=== PATIENT | male | born 1995 | race Caucasian/White ===

== ENCOUNTER 2020-05-31 16:05 | Emergency (ER) | payer OTHER, SELFPAY ==
--- NOTE | ~2020-05-31 | XR_ITS ---
EXAMINATION: XR FOOT, RIGHT CLINICAL INFORMATION: Pain after fall COMPARISON: None TECHNIQUE: AP, lateral, and oblique views of the right foot. FINDINGS: There is a displaced fracture of the base of the fifth tarsal bone intra-articular with the metatarsal cuboid joint. No other fracture is seen. Joint spaces are otherwise normal. Soft tissues are normal. XR/XR foot RT min 3V IMPRESSION: Displaced fracture of the base of the fifth metatarsal bone intra-articular with the MTT joint.
[2020-05-31 16:07] VITALS: BP 155/72; PULSE 89; RESP 18; TEMP 36.8; O2SAT 99; BMI 35.4
--- NOTE | 2020-05-31 17:16 | ED.LOWEXIN ---
HPI - Extremity Injury (Lower) General Chief Complaint: Extremity Injury, Lower Stated Complaint: Fall/ankle pain Time Seen by Provider: 05/31/20 17:16 History of Present Illness HPI Narrative: Patient tripped and fell injuring his right foot yesterday and complains of pain walking and bearing weight, no other injury no head injury no headache no neck pain no back pain Related Data Previous Rx's Medication Instructions Recorded ibuprofen 600 mg PO Q6H PRN #20 tab 05/31/20 Allergies Allergy/AdvReac Type Severity Reaction Status Date / Time No Known Allergies Allergy Verified 05/31/20 16:10 Review of Systems Review of Systems: Positive for right foot pain negatives are no dizziness no weakness no fainting no headache no neck pain no back pain no numbness no weakness no tingling PMFSH Past Medical History Source: nursing notes reviewed Social History Social History Advance Directives: No Advance Directives Information Provided: No Physical Exam Vital Signs: Vital Signs: Last Vital Signs Temp 98.2 F 05/31/20 16:07 Pulse 89 05/31/20 16:07 Resp 18 05/31/20 16:07 BP 155/72 H 05/31/20 16:07 Pulse Ox 99 05/31/20 16:07 Body Mass Index 35.4 General appearance is no acute distress the head is normocephalic atraumatic Neck is supple and nontender Respiratory no distress Back is nontender with full range of motion Extremities the right foot the lateral aspect is ecchymotic, swollen and tender The patient can put some weight on it but very painful and walking with a limp The skin is intact, neurovascular intact Course Course Course Narrative: X-ray shows a 5th metacarpal base displaced fracture, patient is put in a walking boot crutches and will follow with Orthopedics advised minimal weight-bearing Discharge Plan Discharge Clinical Impression: Foot fracture, right Qualifiers: Encounter type: initial encounter Fracture type: closed Qualified Code(s): S92.901A - Unspecified fracture of right foot, initial encounter for closed fracture Patient Disposition: Home, Self-Care Additional Instructions: Follow with orthopedist this week for advice on whether this needs a surgery or is likely to repair itself with splinting Elevate leg Return any concerns Prescriptions: New ibuprofen 600 mg tablet 600 mg PO Q6H PRN (Reason: pain) Qty: 20 RF: 0 Referrals: Shakila Yañez MD [Physician] - 2 days (Displaced 5th metatarsal fracture) Stand Alone Forms: Work/School Release
--- NOTE | 2020-05-31 17:32 | PC.NURSE ---
POST OP SHOE APPLIED TO R FOOT. CRUCTHES GIVEN TO PT AND PT EDUCATED ON PROPER USE.
== END 2020-05-31 17:47 | disposition home or self-care (01) ==
PROVIDERS: Emergency Provider Emergency Medicine
DX: S92.351A Displaced fracture of fifth metatarsal bone, right foot, initial encounter for closed fracture (principal); W10.8XXA Fall (on) (from) other stairs and steps, initial encounter; Y93.89 Activity, other specified; Y92.9 Unspecified place or not applicable; Y99.9 Unspecified external cause status
CPT/HCPCS: 73630; 99283; 99284

== ENCOUNTER → 2020-06-03 11:07 | Outpatient (BNVA) | payer OTHER, SELFPAY | PROVIDERS: Visit Provider Physician Assistant | DX: S92.351A Displaced fracture of fifth metatarsal bone, right foot, initial encounter for closed fracture (principal) | CPT/HCPCS: 99202 ==

== ENCOUNTER 2020-06-09 07:59 | Day surgery (SDC) | payer OTHER, SELFPAY ==
[2020-06-09] VITALS (8 sets, daily range): BP systolic 107–133; BP diastolic 66–87; PULSE 57–90; RESP 16–20; TEMP 36.3–36.6; O2SAT 97–100; BMI 80.4
--- NOTE | ~2020-06-09 | FL_ITS ---
EXAMINATION: XR FLUOROSCOPY WITH IMAGES CLINICAL INFORMATION: Fracture COMPARISON: Previous x-ray 05/31/2020 TECHNIQUE: Fluoroscopy performed by Dr. Evens Toussaint. Fluoroscopy time: 0.5 minutes Images: 2 FINDINGS: There is a single screw transfixing the fracture of the base of the fifth metatarsal bone with improved alignment. FL/FL guidance in OR IMPRESSION: Fluoroscopic guidance for ORIF of right fifth metatarsal fracture.
--- NOTE | 2020-06-09 07:36 | MHC.SHP ---
Pre-Procedural Eval Section A The patient is an INPATIENT: No Changes since office visit: Yes Patient answered all questions; No Cold of Flu in the past 2 weeks, No New Medical Problems and No Changes in Medication The History & Physical has been completed within 30 days and I have reviewed it.: Yes Section B Chief Complaint: foot fx Allergies: Allergies Allergy/AdvReac Type Severity Reaction Status Date / Time No Known Allergies Allergy Verified 06/03/20 11:21 Plan I have reviewed the history and physical and performed a pertinent physical examination on my patient. No changes have occurred unless specified.
--- NOTE | 2020-06-09 09:04 | PC.NURSE ---
ANESTHESIOLOGIST PERFORMING NERVE BLOCK ON PATIENT AT BEDSIDE AT THIS TIME. ALL CONSENTS OBTAINED AND SIGNED PRIOR TO PROCEDURE. TIME OUT COMPLETED PER POLICY.
[2020-06-09] MEDS: Lactated Ringers 1,000 ML 50 ML IV (09:19)
--- NOTE | 2020-06-09 10:52 | PM.OP ---
Brief Operative Note Date of Service: 06/09/20 Pre-op diagnosis: right 5th metatarsal fracture Post-op diagnosis: same Procedure: ORIF right 5th metatarsal Implants: Asmus micro 3.0 cannulated screw Surgeon: Evens Toussaint MD Anesthesia: GETA and regional Hydraulic Dredge Operator: Evette Parker Estimated blood loss (mL): 20 Tourniquet time (min): 30 IV fluids (mL): 800 Pathology: none sent Condition: stable Disposition: PACU
[2020-06-09] MEDS: oxyCODONE HCl Immed Release 5 MG TABLET PO (11:28)
[2020-06-09] MEDS: Acetaminophen 325 MG TABLET 975 MG PO (11:28)
[2020-06-09] MEDS: HYDROmorphone HCl 0.5 MG/0.5 ML SYRINGE 0.25 MG IVPUSH (11:30)
--- NOTE | 2020-06-09 12:28 | P.OP_ITS ---
Operative Note Operative Note Date of Service: 06/09/20 Narrative: Date of Service: 06/09/20 Pre-op diagnosis: right 5th metatarsal fracture Post-op diagnosis: same Procedure: ORIF right 5th metatarsal Implants: Asmus micro 3.0 cannulated screw Surgeon: Evens Toussaint MD Anesthesia: GETA and regional Heel Seam Rubber: Evette Parker Estimated blood loss (mL): 20 Tourniquet time (min): 30 IV fluids (mL): 800 Pathology: none sent Condition: stable Disposition: PACU Patient was brought to the operating room and placed supine on the surgical table. He was prepped and draped in standard sterile fashion and a time out was called to identify proper site, proper procedure and IV antibiotics per weight were administered. I began by localizing the fracture using biplanar fluoroscopy. A longintudianl incision was made over the fracture and a full thickness flap was developed. The fracture fragment and 5th MTT articulation were identified and cleaned of soft tissue with peroneal tendon attachment preserved. A k-wire was drilled across the fracture fragment into the plantar lateral metatarsal base. Again biplanar fluoroscopy was used to confirm fracture reduction and hardware position. The wire was overdrilled and a 22 mm 3.0 screw was placed. I was happy with fracture reducution and hardware position. There was no room for more than one screw. The wound was irrigated and the skin closed. Sterile dressings were applied and a well padded splint was placed. Patient was extubated and brought to the recovery room is stable condition. There were no known complications.
== END 2020-06-09 12:20 | disposition home or self-care (01) ==
PROVIDERS: Visit Provider Orthopaedic Surgery
PROC: (CPT 28485; principal; 2020-06-09 09:30)
DX: S92.351A Displaced fracture of fifth metatarsal bone, right foot, initial encounter for closed fracture (principal); W01.0XXA Fall on same level from slipping, tripping and stumbling without subsequent striking against object, initial encounter; Y93.01 Activity, walking, marching and hiking; Y92.9 Unspecified place or not applicable; Y99.8 Other external cause status
CPT/HCPCS: 28485; C1713; J0690; J1100; J1170; J2250; J2405; J3010

== ENCOUNTER 2020-06-24 08:02 | Outpatient (REF) | payer OTHER, SELFPAY ==
--- NOTE | ~2020-06-24 | XR_ITS ---
EXAMINATION: XR FOOT, RIGHT CLINICAL INFORMATION: Displaced fracture of the fifth metatarsal COMPARISON: 05/31/2020 TECHNIQUE: AP, lateral, and oblique views of the right foot. FINDINGS: There is a radiopaque screw in place transfixing the fracture at the base of the fifth metatarsal. Fracture line remains visible. Bony fragments are in near-anatomic alignment. Joint spaces are maintained. The soft tissues are unremarkable. XR/XR foot RT min 3V IMPRESSION: Fixation hardware at the fifth metatarsal base fracture with near-anatomic alignment.
== END 2020-06-24 08:03 | disposition home or self-care (01) ==
LOC: HO.HOSX 08:02
PROVIDERS: Visit Provider Physician Assistant
DX: S92.351D Displaced fracture of fifth metatarsal bone, right foot, subsequent encounter for fracture with routine healing (principal)
CPT/HCPCS: 73630; 99212

== ENCOUNTER 2020-07-22 08:01 | Outpatient (REF) | payer OTHER, SELFPAY ==
--- NOTE | ~2020-07-22 | XR_ITS ---
EXAMINATION: XR FOOT, RIGHT CLINICAL INFORMATION: Displaced fracture 5th metatarsal. COMPARISON: 06/24/2020 and 05/31/2020 TECHNIQUE: AP, lateral, and oblique views of the right foot. FINDINGS: Metallic screw is seen transfixing fracture base of the 5th metatarsal. There appears to be some degree of interval bony union. A faintly seen fracture line present. There is anatomic alignment. No acute fracture or dislocation is evident. There is a small plantar calcaneal spur. XR/XR foot RT min 3V IMPRESSION: Healing fracture base of the 5th metatarsal with evidence of some bony union.
== END 2020-07-22 08:02 | disposition home or self-care (01) ==
LOC: HO.HOSX 08:01
PROVIDERS: Visit Provider Orthopaedic Surgery
DX: S92.353D Displaced fracture of fifth metatarsal bone, unspecified foot, subsequent encounter for fracture with routine healing (principal)
CPT/HCPCS: 73630; 99212

== ENCOUNTER 2020-09-02 08:18 | Outpatient (REF) | payer OTHER, SELFPAY | END 2020-09-02 08:19 | disposition home or self-care (01) | LOC: HO.HOSX 08:18 | PROVIDERS: Visit Provider Orthopaedic Surgery | DX: S92.351D Displaced fracture of fifth metatarsal bone, right foot, subsequent encounter for fracture with routine healing (principal); X58.XXXD Exposure to other specified factors, subsequent encounter | CPT/HCPCS: 99212 ==

== ENCOUNTER 2020-09-02 10:44 | Outpatient (REF) | payer OTHER, SELFPAY ==
--- NOTE | ~2020-09-02 | XR_ITS ---
EXAMINATION: XR FOOT, RIGHT CLINICAL INFORMATION: Fracture fifth metatarsal. COMPARISON: Several priors. Most recent of 07/22/20. TECHNIQUE: AP, lateral, and oblique views of the right foot. FINDINGS: The fracture at the base of the fifth metatarsal appears solidly united in stable anatomic alignment. A single surgical screw remains in place with no hardware complication. XR/XR foot RT min 3V IMPRESSION: Healed fracture at the base of the right fifth metatarsal in stable anatomic alignment status post surgical screw fixation.
== END 2020-09-02 10:45 | disposition home or self-care (01) ==
LOC: HO.XRAY 10:44
PROVIDERS: Visit Provider Orthopaedic Surgery
DX: S92.351D Displaced fracture of fifth metatarsal bone, right foot, subsequent encounter for fracture with routine healing (principal); X58.XXXD Exposure to other specified factors, subsequent encounter
CPT/HCPCS: 73630

== ENCOUNTER 2022-09-11 11:24 | Emergency (ER) | payer OTHER, SELFPAY ==
--- NOTE | ~2022-09-11 | XR_ITS ---
EXAMINATION: XR FOOT, LEFT CLINICAL INFORMATION: Pain with ambulation COMPARISON: None available. TECHNIQUE: AP, lateral, and oblique views of the left foot. FINDINGS: No visible acute fracture or dislocation. Alignment is anatomic. Oblique lucency in the distal cuneiform, suspected to represent sequela of overlapping densities. Joint spaces are maintained. No abnormal soft tissue calcification. XR/XR foot LT min 3V IMPRESSION: No radiographically evident discrete acute fracture or dislocation. Lucency in the distal cuneiform suspected to represent sequela of overlapping densities. Clinically correlate. Additional/follow-up imaging for reassessment as clinically warranted.
--- NOTE | 2022-09-11 12:37 | ED.LOWEXIN ---
HPI - Extremity Injury (Lower) General Chief Complaint: Extremity Injury, Lower Stated Complaint: L knee pain rad to knee Time Seen by Provider: 09/11/22 13:53 Source: patient Mode of arrival: ambulatory Limitations: no limitations History of Present Illness HPI Narrative: Patient is a 27 year old assigned male at with no reported medical history presenting to the emergency department today with left foot pain. Patient states that over the last few days he has had increasing left foot pain that starts in the mid foot and shoots into his towns and into the back of his left leg. Patient denies any dizziness, lightheadedness, abdominal pain, nausea, vomiting, fever, chills, blurry vision, double vision, loss of vision, chest pain, difficulty breathing, shortness of breath, back pain, night sweats, pain with urination, increased urinary frequency, increased urinary urgency, blood in his urine or stool, syncope or a near syncopal episode, bowel incontinence, bladder incontinence, bowel retention, bladder retention, or any other complaints at this time. Onset (ago): day(s) Severity: mild Severity scale (1-10): 3 Relieving factors: nothing Exacerbating factors: weight bearing and movement Other symptoms: none Related Data Previous Rx's Medication Instructions Recorded hydrocodone 5 mg-acetaminophen 325 1 tab PO Q4-6H PRN pain 7 days #42 06/09/ mg tablet tabs Allergies Allergy/AdvReac Type Severity Reaction Status Date / Time No Known Allergies Allergy Verified 09/11/22 12:37 Review of Systems Constitutional: Constitutional: Reports no additional constitutional complaints, Denies chills, Denies fever(s) and Denies night sweats Eyes: Eyes: Reports no additional eye complaints, Denies blurry vision, Denies change in vision, Denies diplopia, Denies eye discharge, Denies loss of vision and Denies eye pain ENT: Denies dizziness Cardiovascular: Cardiovascular: Reports no additional cardiovascular complaints, Denies chest pain, Denies lightheadedness, Denies Loss of Consciousness and Denies dyspnea Respiratory: Respiratory: Reports no additional respiratory complaints and Denies dyspnea Gastrointestinal: Gastrointestinal: Reports no additional gastrointestinal complaints, Denies abdominal pain, Denies melena, Denies hematochezia, Denies change in bowel habits and Denies change in stool character Genitourinary: Genitourinary: Reports no additional male genitourinary complaints, Denies hematuria, Denies oliguria, Denies difficulty urinating, Denies dysuria, Denies urinary frequency, Denies urinary hesitancy, Denies urinary incontinence and Denies urinary urgency Musculoskeletal: Musculoskeletal: Reports no additional musculoskeletal complaints, Denies numbness and Denies tingling Comments: left foot pain Neurologic: Denies dizziness, Denies loss of vision, Denies numbness and Denies tingling Psychiatric: Psychiatric: Reports no additional psychiatric complaints Endocrine: Endocrine: Reports no additional endocrine complaints Hematologic/Lymphatic: Hematologic/Lymphatic: Reports no additional hematologic/lymphatic complaints Allergic/Immunologic: Allergic/Immunologic: Reports no additional allergic/immunologic complaints PMFSH Past Medical History Attestation statement: The following information was validated with the patient. 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 Physical Exam Vital Signs: Vital Signs: Last Vital Signs Temp 97 F 09/11/22 12:38 Pulse 79 09/11/22 12:38 Resp 19 09/11/22 12:38 BP 154/104 H 09/11/22 12:38 Pulse Ox 98 09/11/22 12:38 O2 Del Method Room Air 09/11/22 12:38 BMI result Body Mass Index 37.6 Const: General: cooperative, no acute distress, alert and awake Nutritional Appearance: well nourished Orientation/consciousness: patient oriented x3 Limitations: no limitations HEENT: Head: Yes normal to inspection and Yes atraumatic Ears: hearing grossly normal bilaterally and external ears normal General nose exam: Normal external nose present, no nasal discharge noted and no epistaxis Face and sinus: Yes normal facial exam, No abrasion and No laceration Mouth: Normal oral and palatal mucosa present, no drooling and no muffled voice Eyes: General: appearance normal, both eyes and all related structures Periorbital: periorbital findings normal Eyelids: Yes eyelids normal Conjunctivae: conjunctivae normal Pupils: Equal, round and reactive pupils present EOM: EOMs intact bilaterally Neck: Neck: Yes normal visual inspection, Yes full ROM and Yes no lymphadenopathy Chest: Chest palpation & inspection: normal inspection of the chest Resp: Effort & Inspection: normal respiratory effort and able to speak in complete sentences GI: Inspection: Yes normal to inspection Neuro: General: patient oriented x3 and moves all extremities Cranial nerves: Yes Equal, round and reactive pupils present Cognition (Neuro): normal cognition Motor exam (neuro): 5/5 motor strength present throughout Sensory Exam: Normal double simultaneous stimulation for sensation Coordination: [id number] test normal Extrem: General: Yes normal to inspection, Yes full ROM and Yes capillary refill normal Psych: Appearance: grossly normal Mental Status: mental status grossly normal Affect: normal affect Attitude: cooperative Thought process: Normal thought process present Thought content: Normal thought content present Insight: Good insight present (Psych) Course Course Course Narrative: RME - 27 yo male presents to the ER for evaluation of nontraumatic left foot pain that radiates to the left knee that started at work 3 days ago. 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 Pain is 7/10, worse with ambulation. Plan: x-ray of the foot Medical Decision Making Medical Decision Making [facility] Narrative: Patient is a 27 year old assigned male at with no reported medical history presenting to the emergency department today with left foot pain. Patient's physical exam was unremarkable. Patient's left foot x-ray showed a lucency in the distal cuneiform suspected to represent sequela of overlapping densities. However, this is where the patient is having pain and fracture cannot be definitively ruled out. Patient's clinical presentation is plantar fasciitis vs. foot fracture. I explained my physical exam findings as well as all test results to the patient. I answered all questions asked by the patient. Patient's left foot was placed in a walking boot, without incident. Patient's PMS was intact prior to and after boot placement. I stressed the importance of the patient taking his medication as prescribed. I stressed the importance of the patient following up with his primary care provider and an orthopedic provider. I stressed the importance of the patient returning to the emergency department immediately if his symptoms were to worsen or if he were to develop any dizziness, shortness of breath, difficulty breathing, chest pain, blurry vision, loss of vision, nausea, vomiting, abdominal pain, fever, chills, back pain, or any other complaints. Patient verbalized agreement and understanding with this treatment plan and discharge. Differential Diagnosis Differential Diagnoses: The differential diagnosis associated with the presentation includes Left foot fracture Left foot sprain Left foot strain Left plantar fasciitis Independent Interpretation I performed an independent interpretation of an: Plain X-Ray Interpretation: My interpretation is in agreement with the radiologist's impression of this imaging study. EXAMINATION: XR FOOT, LEFT CLINICAL INFORMATION: Pain with ambulation? COMPARISON: None available.? TECHNIQUE: AP, lateral, and oblique views of the left foot. FINDINGS: No visible acute fracture or dislocation. Alignment is anatomic. Oblique lucency in the distal cuneiform, suspected to represent sequela of overlapping densities. Joint spaces are maintained. No abnormal soft tissue calcification. XR/XR foot LT min 3V IMPRESSION: No radiographically evident discrete acute fracture or dislocation. Lucency in the distal cuneiform suspected to represent sequela of overlapping densities. Clinically correlate. Additional/follow-up imaging for reassessment as clinically warranted. Dictated By: Tapan Fragoso MD Signed By: Electronically signed by Tapan Fragoso MD 09/11/22 [id number] Radiology Impression Discussion of test interpretation with radiology: I have reviewed the radiologist's reading. Procedures Orthopedic Splinting/Casting Injury #1: Side: left Lower Extremity Injury Location: foot Lower Extremity Immobilizer: boot orthosis Discharge Plan Discharge Clinical Impression: Plantar fasciitis, Foot fracture Patient Disposition: Home, Self-Care Instructions: Plantar Fasciitis (ED), Foot Fracture in Adults (ED), Plantar Fasciitis Exercises (ED) Additional Instructions: Follow up with your primary care provider and an orthopedic provider. Return to the emergency department immediately if your symptoms worsen or if you develop any dizziness, shortness of breath, difficulty breathing, chest pain, blurry vision, loss of vision, nausea, vomiting, abdominal pain, fever, chills, back pain, or any other complaints. Prescriptions: No Action hydrocodone-acetaminophen 5-325 mg tablet 1 tab PO Q4-6H PRN (Reason: pain) 7 Days Qty: 42 0RF Referrals: [facility] [place] Family [facility] [Provider Group] (Call to establish and follow up with a primary care provider. If you already have a primary care provider, please follow up with them.) [facility] [place] Primary Care, [facility] [Provider Group] (Call to establish and follow up with a primary care provider. If you already have a primary care provider, please follow up with them.) [facility] [place] [facility] [Provider Group] (Call to establish and follow up with a primary care provider. If you already have a primary care provider, please follow up with them.) [facility] [place] [facility] [Provider Group] (Call to establish and follow up with an orthopedic provider. ) Stand Alone Forms: Work/School Release Interventions: ED Discharge Assessment Last Done: 09/11/22 14:25 Discharge Date/Time: 09/11/22 14:25 Print Language: Albanian
[2022-09-11 12:38] VITALS: BP 154/104; PULSE 79; RESP 19; TEMP 36.1; O2SAT 98; BMI 37.6
== END 2022-09-11 14:25 | disposition home or self-care (01) ==
PROVIDERS: Emergency Provider Emergency Medicine
DX: M72.2 Plantar fascial fibromatosis (principal); S92.902A Unspecified fracture of left foot, initial encounter for closed fracture; X58.XXXA Exposure to other specified factors, initial encounter; Y93.9 Activity, unspecified; Y92.9 Unspecified place or not applicable; Y99.9 Unspecified external cause status
CPT/HCPCS: 73630; 99282; 99283

== ENCOUNTER 2022-09-27 14:37 | Outpatient (AMB) | payer OTHER, SELFPAY ==
--- NOTE | 2022-09-27 14:40 | A.OFFVIS_ITS ---
Intake Vital Signs 09/27/22 14:45 Height 5 ft 7 in Weight 240 lb BMI 37.6 Intake Visit Reasons: fc- Plantar fasciitis, left Foot fracture Intake Note: Sandoval is a 27 year old male who presents today for a fracture care appointment for his left foot fx. Patient was in the ED on 09/11/22 and he was placed in a walking boot. He states that his pain started on 09/09/22 and he is unsure what it trigger his pain. Pain starts on his heel and it radiates up behind his knee. Denies numbness and tingling. Allergies No Known Allergies Allergy (Verified 09/27/22 14:44) HPI fc- Plantar fasciitis, left Foot fracture HPI Details 27-year-old male who presents to the office today for pain in the left foot, onset 09/09/22. He states he has pain in his heel which extends along the bottom of the foot. He also develops discomfort that extends up the calf. He states the pain is worse in the moring and slowly improves throughout the day. He works on his feet a r of the day. He does try to roll a frozen water bottle along the bottom of the foot for relief. He was seen in the ED on 09/11, he was given a walking boot and referred to our office for ortho eval. 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 He also has some discomfort with flexion and extension of the great toe and with inversion motion. NVI. Results Reviewed Results Reviewed: xrays obtained in the ED on 09/11 are negative for obvious fracture. Assessment & Plan Assessment & Plan (1) Plantar fasciitis of left foot: Code(s): M72.2 - Plantar fascial fibromatosis Plan We discussed options which include physical therapy and anti-inflammatories use. We also reviewed some home exercises. He can also use a lacrosse ball to help stretch out the fascia. We presented him with a blue night splint shoe which he can use while sleeping to help with the stretching. If symptoms persist or worsens, patient will contact the office to discuss a referral to steroid injection, otherwise follow-up as needed. Orders: Orders PT Evaluation and Treatment Today M72.2 - Plantar fascial fibromatosis Patient Instructions: Scribed for Tiffanie Correa PA-C, by Humberto Miller medical imaging director, on 09/27/2022 at 2:30 PM EST. ITiffanie PA-C, have personally reviewed and agree with the information entered by the scribe. Coding Level of Care Code New Pt Level 3 (63716) Diagnoses Plantar fasciitis of left foot M72.2
[2022-09-27 14:45] VITALS: BMI 37.6
== END 2022-09-27 15:18 | disposition home or self-care (01) ==
PROVIDERS: Visit Provider Physician Assistant
DX: M72.2 Plantar fascial fibromatosis (principal)
CPT/HCPCS: 99213

== ENCOUNTER → 2022-09-27 14:37 | Outpatient (BNVA) | payer OTHER, SELFPAY | PROVIDERS: Visit Provider Physician Assistant | DX: M72.2 Plantar fascial fibromatosis (principal) | CPT/HCPCS: 99212 ==

== ENCOUNTER 2022-12-10 21:37 | Emergency (ER) | payer OTHER, SELFPAY ==
--- NOTE | ~2022-12-10 | XR_ITS ---
EXAMINATION: XR SHOULDER, LEFT CLINICAL INFORMATION: Pain. COMPARISON: None available. TECHNIQUE: AP external rotation, Grashey, scapular Y, and axillary views of the left shoulder. XR/XR shoulder LT min 2V FINDINGS/IMPRESSION: There is a mixed, predominantly sclerotic lesion involving the proximal left humeral metadiaphysis. The borders of this lesion and not very well-circumscribed, and there may be a small amount of cortical erosion. No periosteal reaction is seen. The finding is nonspecific. Differential diagnosis includes both benign and malignant etiologies, particularly given the reported history of associated pain. MRI is recommended for further evaluation. Surgical consultation should be considered as well. No acute fracture or dislocation is identified.
--- NOTE | ~2022-12-10 | XR_ITS ---
EXAMINATION: XR ELBOW, LEFT CLINICAL INFORMATION: Pain. COMPARISON: None available. TECHNIQUE: AP, lateral, and oblique views of the left elbow. FINDINGS: The bones and soft tissues appear unremarkable. No fracture or joint effusion. Alignment is anatomic. Joint spaces are maintained. XR/XR elbow LT min 3V IMPRESSION: Normal plain film examination of the left elbow.
[2022-12-10 21:46] VITALS: BP 152/85; PULSE 113; RESP 16; TEMP 36.7; O2SAT 98; BMI 37.6
--- NOTE | 2022-12-10 23:50 | ECG_ITS ---
Test Reason : PAIN Blood Pressure : / mmHG Vent. Rate : 083 BPM Atrial Rate : 083 BPM P-R Int : 200 ms QRS Dur : 088 ms QT Int : 326 ms P-R-T Axes : 014 050 -03 degrees QTc Int : 383 ms Normal sinus rhythm ST & T wave abnormality, consider inferior ischemia Abnormal ECG No previous ECGs available Referred By: Mohsen Sparks Electronically Signed By:VIVIANE CASAREZ
--- NOTE | 2022-12-10 23:50 | ED.EXTPRO ---
HPI - Extremity Problem General Chief complaint: Extremity Injury, Upper Stated complaint: Pain in left shoulder/arm Time Seen by Provider: 12/10/22 23:44 Source: patient, RN notes reviewed and old records reviewed Mode of arrival: ambulatory Limitations: no limitations History of Present Illness HPI Narrative: 27-year-old male who denies any known past medical history presents for evaluation of chest tightness, palpitations. He reports his symptoms started around 6:00 p.m., but 6-1/2 hours ago His pain radiates into his left shoulder and has some numbness in his left arm Patient states that he has not seen a primary doctor in over 5 years However he has no diagnosed medical history He does endorse smoking cigarettes daily He is also obese He reports that his pain started while he was ?sitting down at my computer. ? His pain has improved but he still has some discomfort in his chest which he rates as a 4/10 Denies any personal history of cardiac disease Related Data Home Medications Medication Instructions Recorded Confirmed No Known Home Meds 09/27/22 09/27/22 Allergies Allergy/AdvReac Type Severity Reaction Status Date / Time No Known Allergies Allergy Verified 09/27/22 14:44 Review of Systems Constitutional: Constitutional: Denies chills, Denies fever(s) and Denies headache(s) ENT: Denies headache(s) Cardiovascular: Cardiovascular: Reports chest pain, Reports rapid heart rate and Denies dyspnea Respiratory: Respiratory: Denies cough and Denies dyspnea Gastrointestinal: Gastrointestinal: Denies abdominal pain, Denies nausea and Denies vomiting Genitourinary: Genitourinary: Denies dysuria Musculoskeletal: Musculoskeletal: Reports arthralgias, Denies joint swelling and Denies limited range of motion Integumentary/Breasts: Skin/Breast: Denies rash Neurologic: Denies headache(s) [facility] Social History Social History Alcohol intake: current Alcohol intake frequency: holidays/special occasions only Patient Tobacco Use Status: Never used Tobacco Advance Directives: No Advance Directives Information Provided: No Current occupational status: employed 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 Physical Exam Vital Signs: Vital Signs: Last Vital Signs Temp 98.0 F 12/10/22 21:46 Pulse 113 H 12/10/22 21:46 Resp 16 12/10/22 21:46 BP 152/85 H 12/10/22 21:46 Pulse Ox 98 12/10/22 21:46 O2 Del Method Room Air 12/10/22 21:46 BMI result Body Mass Index 37.6 Const: General: healthy appearing, comfortable, no acute distress, alert and awake Nutritional Appearance: well nourished Orientation/consciousness: patient oriented x3 HEENT: Head: Yes normocephalic and Yes atraumatic Eyes: Eyelids: Yes eyelids normal Conjunctivae: conjunctivae normal Sclerae: sclerae normal Corneas: corneas normal Pupils: Equal, round and reactive pupils present EOM: EOMs intact bilaterally Neck: Neck: Yes full ROM Chest: Other: Left chest wall tenderness without crepitus Resp: Effort & Inspection: normal respiratory effort, able to speak in complete sentences, no audible wheezes and not labored Auscultation: clear to auscultation bilaterally Cardio: Rate: regular rate Rhythm: regular rhythm GI: Inspection: No distended Palpation (GI): Soft to palpation, not firm, nontender, no guarding and not rigid Skin: General skin exam: elasticity normal Neuro: General: patient oriented x3 Cranial nerves: Yes Equal, round and reactive pupils present and Yes Bilaterally intact EOM present Cognition (Neuro): normal cognition Course Reevaluation(s) Reevaluation #1: Troponin undetectable, given that the patient's symptoms started 6 hours prior to this being drawn, this effectively rules out ACS Time: 00:41 Medical Decision Making Medical Decision Making [facility] Narrative: 27-year-old male presents for evaluation of palpitations and chest pain. Symptoms started about 6 hours prior to my evaluation. He had a shoulder and elbow x-ray that was ordered in triage which shows a mixed predominantly sclerotic lesion involving the proximal left humeral metadiaphysis. This was discussed the patient and strictly encouraged to have follow-up to rule out malignant pathology. It is unclear if this is causing the patient's chest pain. Given that he is morbidly obese and a smoker, I ordered labs and an EKG. Patient denies shortness of breath, has no risk factors for PE, this is favored to be less likely. Differential Diagnosis Differential Diagnoses: The differential diagnosis associated with the presentation includes Anxiety Chest wall pain Palpitations Shoulder sprain GERD Lab Data [facility] Lab Attestation statement: I reviewed the patient's lab results. No leukocytosis. No anemia, normal platelet count. No electrolyte abnormalities. Normal renal function. Troponin undetectable less than 2.7 12/11/22 00:05 12/11/22 00:05 Labs: Lab Results 12/11/22 Range/Units 00:05 WBC 10.7 (4.8-10.8) X10*3/uL RBC 4.79 (4.60-5.80) X10*6/uL Hgb 14.4 (14.0-18.0) g/dl Hct 42.8 (42.0-52.0) % MCV 89.4 (80.0-98.0) fL MCH 30.1 (27.0-33.0) pg MCHC 33.6 (31.0-36.0) g/dl RDW 12.0 (11.0-16.0) % Plt Count 222 (160-400) X10*3/uL MPV 10.9 (9.4-12.4) fL Immature Gran % (Auto) 1.3 H (0.0-0.4) % Neut % (Auto) 85.3 H (45-73) % Lymph % (Auto) 9.7 L (20-40) % [place] % (Auto) 3.0 (2-11) % Eos % (Auto) 0.3 (0-4) % Baso % (Auto) 0.4 (0-2) % Lymph # (Auto) 1.0 L (1.2-4.9) X10*3/uL [place] # (Auto) 0.3 (0.1-1.2) X10*3/uL Eos # (Auto) 0.0 (0.0-0.4) X10*3/uL Baso # (Auto) 0.0 (0.0-0.2) X10*3/uL Abs Immat Gran (auto) 0.14 H (0.00-0.03) X10*3/uL Absolute Neuts (auto) 9.2 H (2.0-8.3) x10*3/uL Absolute Nucleated RBC 0.000 (0.0-0.012) X10*3/uL Nucleated RBC % (auto) 0.0 (0.0-0.2) /100WBC PT 11.8 (11.1-13.3) SEC INR 1.0 (0.9-1.1) APTT 30.5 (26.0-36.4) SEC Sodium 138 (135-145) mmol/L Potassium 4.4 (3.3-5.1) mmol/L Chloride 104 (96-108) mmol/L Carbon Dioxide 22 (22-29) mmol/L Anion Gap 16 (12-20) BUN 9 (9-16) mg/dL Creatinine 0.88 (0.5-1.4) mg/dL Estim Creat Clear Calc 148.3 Estimated GFR > 60 Random Glucose 99 (60-115) mg/dL Calcium 10.0 (8.4-10.2) mg/dL Total Bilirubin 0.4 (0.0-1.0) mg/dL AST 19 (5-37) U/L ALT 34 (0-40) U/L Alkaline Phosphatase 63 (39-117) U/L Troponin I High Sens < 2.7 (<3.5-35.0) ng/L Total Protein 8.2 H (6.5-8.0) g/dL Albumin 4.6 (3.5-5.0) g/dL Lipase 27 (8-78) U/L Independent Interpretation I performed an independent interpretation of an: EKG (Sinus rhythm with a rate of 83 beats per minute. There are T-wave inversions in the inferior leads 3 and AVF. No reciprocal changes.) and Plain X-Ray Interpretation: Proximal humeral lesion noted Radiology Impression Discussion of test interpretation with radiology: I have reviewed the radiologist's reading. Radiologist Impression: There is a mix, predominantly sclerotic lesion involving the proximal left humeral metadiaphysis Discharge Plan Discharge Clinical Impression: Chest pain, Heart palpitations, Bone lesion Patient Disposition: Home, Self-Care Instructions: Chest Pain (ED) Additional Instructions: Your x-ray showed a sclerotic lesion in your left proximal humerus. This needs to be followed up with further imaging, possibly an MRI You may call your primary doctor to schedule an appointment. With your unable to see them, you may follow-up with Orthopedics at the number provided Remainder of your workup including labs was reassuring Prescriptions: No Action No Known Home Meds Referrals: Evens Toussaint MD [Physician] - (sclerotic bone lesion left proximal humerus)
[2022-12-11 00:10] LABS: MANUAL DIFF FLAG NO
[2022-12-11 00:16] LABS: Basophils Percent Auto 0.4 % (0-2); Eosinophils Percent Auto 0.3 % (0-4); Hematocrit 42.8 % (42.0-52.0); Hemoglobin 14.4 g/dl (14.0-18.0); Imm Gran Abs Auto 0.14 X10*3/uL (0.00-0.03); Imm Gran Pct Auto 1.3 % (0.0-0.4); Lymphocytes Percent Auto 9.7 % (20-40); Mean Corpuscular HGB Conc 33.6 g/dl (31.0-36.0); Mean Corpuscular Hemoglobin 30.1 pg (27.0-33.0); Mean Corpuscular Volume 89.4 fL (80.0-98.0); Mean Platelet Volume 10.9 fL (9.4-12.4); Monocytes Absolute Auto 0.3 X10*3/uL (0.1-1.2); Neutrophils Absolute Auto 9.2 x10*3/uL (2.0-8.3); Neutrophils Percent Auto 85.3 % (45-73); Platelet Count 222 X10*3/uL (160-400); Red Blood Count 4.79 X10*6/uL (4.60-5.80); White Blood Count 10.7 X10*3/uL (4.8-10.8)
[2022-12-11 00:20] LABS: Prothrombin Time 11.8 SEC (11.1-13.3)
[2022-12-11 00:22] LABS: Partial Thromboplastin Time 30.5 SEC (26.0-36.4)
[2022-12-11 00:27] LABS: Alanine Aminotransferase 34 U/L (0-40); Albumin Level 4.6 g/dL (3.5-5.0); Alkaline Phosphatase 63 U/L (39-117); Anion Gap 16 (12-20); Aspartate Amino Transferase 19 U/L (5-37); Bilirubin Total 0.4 mg/dL (0.0-1.0); Blood Urea Nitrogen 9 mg/dL (9-16); Carbon Dioxide 22 mmol/L (22-29); Chloride 104 mmol/L (96-108); Creatinine Clr Calc Pharmacy 148.3; Estimated Glomerular Filt Rate > 60; Glucose Random 99 mg/dL (60-115); Lipase 27 U/L (8-78); Potassium 4.4 mmol/L (3.3-5.1); Sodium 138 mmol/L (135-145); Total Protein 8.2 g/dL (6.5-8.0)
[2022-12-11 00:36] LABS: Troponin-I High Sensitivity < 2.7 ng/L (<3.5-35.0)
== END 2022-12-11 01:05 | disposition home or self-care (01) ==
PROVIDERS: Physician Assistant; Emergency Provider Emergency Medicine
DX: R07.89 Other chest pain (principal); R00.2 Palpitations; M25.512 Pain in left shoulder; Z79.899 Other long term (current) drug therapy
CPT/HCPCS: 36415; 73030; 73080; 80053; 83690; 84484; 85025; 85610; 85730; 93005; 99283; 99284

== ENCOUNTER 2022-12-13 11:00 | Outpatient (RCR) | payer OTHER, SELFPAY ==
--- NOTE | 2022-10-23 15:37 | MHC.PT.EP ---
[facility] [place] [facility] [place] [facility] [place] [facility] [address] Lucy Ibrahim [address] [phone] F: [phone] F: [phone] F: [phone] F: [phone] Physical Therapy Plan of Care Date of Evaluation: Date of Surgery: Diagnosis: LEFT PLANTAR FASCITIS Assessment: RONALDO IS A PLEASANT 27 YO MALE WHO REPORTS HE BEGAN FEELING PAIN IN HIS FOOT WHEN AT WORK A FEW MONTHS AGO. PAIN BEGAN WORSENING OVER THE FOLLOWING FEW WEEKS. NOW PAIN BEGINS IN THE MORNING AND WORSENS THE MORE HE STANDS AND WALKS. HIS JOB REQUIRES NEAR CONSTANT STANDING AND WALKING. PAIN IS INDICATED IN LATERAL CALF, ACHILLES, TRANSVERSE ARCH AND DORSUM OF FOOT. DENIES ALTERED SENSATION, REPORTS TRANSIENT EDEMA IN LATERAL ASPECT OF FOOT. UPON EXAM E DEMONSTRATES DECREASED FOOT AND ANKLE ROM, DECREASED STRENGTH OF HIP AND LE, ALTERED GAIT PATTERN AND DECREASED SOFT TISSUE MOBILITY, INCREASED PAIN. FUNCTIONAL LIMITATIONS INCLUDE DECREASED ABILITY TO PERFORM STATIC STANDING AND WALKING DECREASED TOLERANCE TO STAIRS, DECREASED ABILITY TO PERFORM WORK TASKS. HE REPORTS DECREASED PARTICIPATION IN FITNESS AND RECREATIONAL ACTIVITIES. Frequency and Duration: The patient will be seen 2 X WEEK FOR 4 WEEKS Short Term Goals: INITIATE HEP AND PROMOTE SELF MANAGEMENT OF SYMPTOMS [employer] Professor Goals: TO AMBULATE AD JOHN ON LEVEL AND UNEVEN SURFACES WITH PAIN NO GREATER THAN 2/10 INDEPENDENT HEP FULL LE STRENGTH EQUAL ROBINSON TO PERFORM FULL FUNCTIONAL SQUAT Treatment Plan: Modalities to reduce pain, spasms and effusion. Manual therapy to restore motion and function. Therapeutic exercise to improve strength and flexibility. Neuromuscular re-education for posture and balance. Therapeutic activities to return to functional activities of daily living. Electronically signed by: KIRSTEN GAMBOA PT DPT Please sign and return to therapist. Thank you for your referral.
== END 2023-01-12 11:40 | disposition home or self-care (01) ==
LOC: HO.PT 11:00
PROVIDERS: Visit Provider Physician Assistant
DX: M72.2 Plantar fascial fibromatosis (principal)
CPT/HCPCS: 97110; 97112; 97140; 97161

== ENCOUNTER 2022-12-20 14:08 | Outpatient (AMB) | payer OTHER, SELFPAY ==
--- NOTE | 2022-12-20 14:18 | A.OFFVIS_ITS ---
Intake Intake Visit Reasons: New Probeft shoulder sclerotic lesion Intake Note: Sandoval a 27 year old left hand dominant male who presents today for an evaluation of left shoulder. Patient reports on 12/10/22 he was having chest and shoulder pain, presented to [facility] where xrays were taken and was referred to orthopedics. Currently having slight shoulder pain that radiates down his arm with numbness in palm. 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 No previous tx. Allergies No Known Allergies Allergy (Verified 12/20/22 14:22) HPI New Probeft shoulder sclerotic lesion HPI Details 27-year-old left hand dominant male who presents to the office today for evaluation of left shoulder. He was seen at ED on 12/10/22 for chest and shoulder pain where x-rays were performed and he was referred to our office. He has not had any treatment in the past. He states he has mild pain and tightness in his shoulder which radiates down to his arm and elbow. His pain is aggravated with lifting but gets better with stretching his shoulder. He also c/o numbness in his palm. He denies any pain at night. 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 Tenderness over the bicipital groove and along the deltoid region of the shoulder. Forward flexion to 175, external rotation to 90, internal rotation to S1. 5/5 RTC strength. Positive Muñoz and cross body abduction. NVI. Results Reviewed Results Reviewed: X-rays of the left shoulder obtained in the ED on 12/10/22 show a sclerotic lesion involving the proximal humerus. No other bony abnormalities. Assessment & Plan Assessment & Plan (1) Tendonitis of left rotator cuff: Code(s): M75.82 - Other shoulder lesions, left shoulder (2) Lesion of left shoulder: Code(s): M75.92 - Shoulder lesion, unspecified, left shoulder Plan I did recommend a course of physical therapy to work on RTC and periscapular strengthening. At this time, he would like to hold off on physical therapy as he is completing physical therapy for his plantar fasciitis. Therefore, I did give him a handout for RTC exercises. We will also order an MRI of the left humerus to further evaluate the sclerotic lesions. This will be done with and without contrast. Once this is complete, he will see me back to discuss the result and determine the need for further treatment. Orders: Orders MR humerus LT wo/w con Today M75.82 - Other shoulder lesions, left shoulder, M75.92 - Shoulder lesion, unspecified, left shoulder Patient Instructions: Scribed for Tiffanie Correa PA-C, by Humberto Miller, biomedical equipment technician, on 12/20/2022 at 2:15 PM MICHAEL. I, Tiffanie Correa PA-C, have personally reviewed and agree with the information entered by the scribe. Coding Level of Care Code Est Pt Level 3 (89595) Diagnoses Tendonitis of left rotator cuff M75.82 Lesion of left shoulder M75.92
== END 2022-12-20 15:02 | disposition home or self-care (01) ==
PROVIDERS: PCP Nurse Practitioner Family; Visit Provider Physician Assistant
DX: M75.82 Other shoulder lesions, left shoulder (principal); M75.92 Shoulder lesion, unspecified, left shoulder
CPT/HCPCS: 99214

== ENCOUNTER → 2022-12-20 14:08 | Outpatient (BNVA) | payer OTHER, SELFPAY | PROVIDERS: PCP Nurse Practitioner Family; Visit Provider Physician Assistant | DX: M75.82 Other shoulder lesions, left shoulder (principal) | CPT/HCPCS: 99212 ==

== ENCOUNTER 2022-12-27 10:35 | Emergency (ER) | payer OTHER, SELFPAY ==
[2022-12-27 10:39] VITALS: BP 139/98; PULSE 96; RESP 18; TEMP 36.6; O2SAT 98; BMI 40.0
[2022-12-27 11:35] LABS: Anion Gap 14 (12-20); Blood Urea Nitrogen 12 mg/dL (9-16); Calcium 9.8 mg/dL (8.4-10.2); Carbon Dioxide 24 mmol/L (22-29); Chloride 104 mmol/L (96-108); Creatinine Clr Calc Pharmacy 146.8; Estimated Glomerular Filt Rate > 60; Glucose Random 132 mg/dL (60-115); Potassium 3.5 mmol/L (3.3-5.1); Sodium 138 mmol/L (135-145)
--- NOTE | 2022-12-27 12:20 | ED.CHESTPAIN ---
HPI - Chest Pain General Chief Complaint: Chest Pain Stated Complaint: Chest Pain Weak Shaking Time Seen by Provider: 12/27/22 12:05 Source: patient Mode of arrival: ambulatory Limitations: no limitations History of Present Illness HPI narrative: 27 yo male with no significant medical history presents to the ER for evaluation of left upper chest pain that started at 10:30 this morning when he was trying to sleep. He works nights and when he was lying in bed he started having an aching pain in his left upper chest associated with palpitations and high heart rate. He states he then started hyperventilating and sweating. He got pale and his hands got sweaty. His dad brought into the ER for evaluation. He denies any similar episodes to this. He states his symptoms have significantly improved with time but he would still has some aching in his left upper chest. It is worse with palpation. 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 He denies any known injury. No back pain, trouble breathing, lower extremity swelling, cough. MD complaint: chest pain and chest discomfort Onset (ago): hour(s) Timing of current episode: still present Prior episodes: No Onset: during rest Pain location: left chest Pain radiation: none Severity: moderate Quality: aching Relieving factors: rest Exacerbating factors: palpation Associated symptoms: diaphoresis and palpitations Treatment prior to arrival: none Risk Factors Coronary artery disease risk factors: none Thoracic aortic dissection risk factors: none Related Data Previous Rx's Medication Instructions Recorded ibuprofen 800 mg tablet 800 mg PO Q8H PRN pain #14 tabs 12/27/22 Allergies Allergy/AdvReac Type Severity Reaction Status Date / Time No Known Allergies Allergy Verified 12/27/22 10:39 Review of Systems Review of Systems: Yes all other systems are reviewed and are negative [facility] Past Medical History Surgical History (Updated 12/20/22 @ 14:22 by KEENAN Barron) Hx of foot surgery Social History Social History Alcohol intake: current Alcohol intake frequency: holidays/special occasions only Patient Tobacco Use Status: Never used Tobacco Advance Directives: No Current occupational status: employed 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 Oriented X3. No acute distress. Head: normocephalic, atraumatic. Eyes: Pupils equal, round and reactive to light. ENT: Pharynx normal. No tonsillar swelling or exudate. Neck: Normal inspection. Neck supple. CVS: Normal heart rate and rhythm. Pulses normal. Left upper chest wall with +soft tissue tenderness of the pectoralis muscle Respiratory: No respiratory distress. Breath sounds normal. Abdomen: Soft and nontender. +BS x4 Skin: Skin warm and dry. Normal skin color. Normal skin turgor. No rashes. Extremities: No lower extremity edema. No joint swelling. No calf tenderness or skin changes Neuro/psych: Oriented X 3. No motor deficit. No sensory deficit. CN II-XII intact. Normal speech and cognition. Medical Decision Making Medical Decision Making [facility] Narrative: 27-year-old male presents to the ER for evaluation with left-sided chest pain and palpitations that started this morning. On arrival to the ER his vital signs are normal. His exam is consistent with soft tissue tenderness in the left upper chest wall. His EKG is unremarkable. His troponins were checked x2 given acute onset this morning. They were negative x2. He has no PE risk factors, will not pursue D-dimer or CTA. His pain is most likely due to muscle strain and spasm of the pectoralis muscle given tenderness on examination today. Will start anti-inflammatories. Will have him follow-up with his primary care doctor. we discussed return precautions any is stable for discharge home. Differential Diagnosis Differential Diagnoses: The differential diagnosis associated with the presentation includes Panic attack, costochondritis, muscle strain and spasm, pneumothorax, less likely ACS or PE Admission/Observation Consideration of admission/observation: Escalation of care including admission/observation considered considered obs on arrival, workup unremarkable Lab Data [facility] Lab Attestation statement: I reviewed the patient's lab results. lab workup unremarkable, troponin negative x2 12/27/22 11:06 12/27/22 11:06 Labs: Lab Results 12/27/22 12/27/22 Range/Units 11:06 14:02 WBC 8.0 (4.8-10.8) X10*3/uL RBC 4.84 (4.60-5.80) X10*6/uL Hgb 14.6 (14.0-18.0) g/dl Hct 42.7 (42.0-52.0) % MCV 88.2 (80.0-98.0) fL MCH 30.2 (27.0-33.0) pg MCHC 34.2 (31.0-36.0) g/dl RDW 12.0 (11.0-16.0) % Plt Count 199 (160-400) X10*3/uL MPV 10.8 (9.4-12.4) fL Immature Gran % (Auto) 1.0 H (0.0-0.4) % Neut % (Auto) 56.2 (45-73) % Lymph % (Auto) 27.9 (20-40) % [place] % (Auto) 8.0 (2-11) % Eos % (Auto) 6.4 H (0-4) % Baso % (Auto) 0.5 (0-2) % Lymph # (Auto) 2.2 (1.2-4.9) X10*3/uL [place] # (Auto) 0.6 (0.1-1.2) X10*3/uL Eos # (Auto) 0.5 H (0.0-0.4) X10*3/uL Baso # (Auto) 0.0 (0.0-0.2) X10*3/uL Abs Immat Gran (auto) 0.08 H (0.00-0.03) X10*3/uL Absolute Neuts (auto) 4.5 (2.0-8.3) x10*3/uL Absolute Nucleated RBC 0.000 (0.0-0.012) X10*3/uL Nucleated RBC % (auto) 0.0 (0.0-0.2) /100WBC Sodium 138 (135-145) mmol/L Potassium 3.5 D (3.3-5.1) mmol/L Chloride 104 (96-108) mmol/L Carbon Dioxide 24 (22-29) mmol/L Anion Gap 14 (12-20) BUN 12 (9-16) mg/dL Creatinine 0.92 (0.5-1.4) mg/dL Estim Creat Clear Calc 146.8 Estimated GFR > 60 Random Glucose 132 H (60-115) mg/dL Calcium 9.8 (8.4-10.2) mg/dL Troponin I High Sens < 2.7 < 2.7 (<3.5-35.0) ng/L Independent Interpretation I performed an independent interpretation of an: EKG and Plain X-Ray Interpretation: cxr clear, no PTX or infiltrate EKG normal sinus rhythm, ventricular rate 96 beats per minute, T-wave inversion in leads 3 and AVF which was present on prior. No ST segment elevations or depressions. Radiology Impression Discussion of test interpretation with radiology: I have reviewed the radiologist's reading. Radiologist Impression: EXAMINATION: XR CHEST CLINICAL INFORMATION: Chest pain COMPARISON: None available. TECHNIQUE: 2 views of the chest were obtained. FINDINGS: No significant abnormality is noted involving the heart, lungs, mediastinum, bony thorax or soft tissues. XR/XR chest 2V IMPRESSION: External Record Review External record reviewed: Outpatient record, Prior outpatient labs and Prior outpatient radiology Prescription Management I considered prescription management with: Pain Medication Critical Care Time Critical Care Time Critical Care Time: No Discharge Plan Discharge Clinical Impression: Acute chest wall pain Patient Disposition: Home, Self-Care Instructions: Noncardiac Chest Pain (ED) Additional Instructions: Your workup today was reassuring. Your heart enzyme was negative x2. Your EKG was normal. Your exam is consistent with muscle pain. Recommend taking the prescribed anti-inflammatory pain medication as needed. Rest, no strenuous activity, limit lifting until pain is better. Follow-up with your doctor. If you develop new or worsening symptoms call 911 or come back to the ER for further evaluation. Prescriptions: New ibuprofen 800 mg tablet 800 mg PO Q8H PRN (Reason: pain) Qty: 14 0RF Stand Alone Forms: Work/School Release
[2022-12-27 14:15] VITALS: BP 122/67; PULSE 68; RESP 16; TEMP 37.4; O2SAT 99
== END 2022-12-27 15:20 | disposition home or self-care (01) ==
PROVIDERS: Emergency Provider Emergency Medicine Emergency Medical Services
DX: R07.89 Other chest pain (principal); R53.1 Weakness; R00.2 Palpitations
CPT/HCPCS: 36415; 71046; 80048; 84484; 85025; 93005; 99283

== ENCOUNTER 2023-01-10 16:21 | Emergency (ER) | payer OTHER, SELFPAY ==
[2023-01-10 17:13] VITALS: BP 107/61; PULSE 118; RESP 19; TEMP 37.2; O2SAT 97; BMI 39.4
--- NOTE | 2023-01-10 17:18 | ED.GENADULT ---
HPI - General Adult General Chief complaint: General Medical Stated complaint: throat pain, headache, hot flashes Time Seen by Provider: 01/10/23 18:25 Source: patient Mode of arrival: ambulatory Limitations: no limitations History of Present Illness HPI narrative: 27 yold presents to the ED for throat pain, headache, and chills. Related Data Previous Rx's Medication Instructions Recorded ibuprofen 800 mg tablet 800 mg PO Q8H PRN pain #14 tabs 12/27/22 amoxicillin 875 mg-potassium 1 tab PO Q12H 10 days #20 tabs 01/10/23 clavulanate 125 mg tablet oseltamivir 75 mg capsule (Tamiflu) 75 mg PO BID 5 days #10 caps 01/10/23 Allergies Allergy/AdvReac Type Severity Reaction Status Date / Time No Known Allergies Allergy Verified 12/27/22 10:39 Review of Systems Review of Systems: throat pain and headache Yes all other systems are reviewed and are negative PMFSH Past Medical History Surgical History (Updated 12/20/22 @ 14:22 by KEENAN Barron) Hx of foot surgery Social History Social History Alcohol intake: current Alcohol intake frequency: holidays/special occasions only Patient Tobacco Use Status: Never used Tobacco Advance Directives: No Advance Directives Information Provided: No Current occupational status: employed 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 Physical Exam ED Vital Signs: Vital Signs - 24 hr 01/10/23 17:13 Temperature 99.0 F Pulse Rate 118 H Respiratory Rate 19 Blood Pressure 107/61 Pulse Oximetry 97 Oxygen Delivery Method Room Air BMI result Body Mass Index 39.4 Const General: cooperative, healthy appearing, comfortable, no acute distress, well developed, alert, awake and Physically active Orientation/consciousness: oriented to person, oriented to place, oriented to time and patient oriented x3 HENMT Head: Yes normal to inspection, Yes No palpable skull fracture present, Yes normocephalic and Yes atraumatic Ears: hearing grossly normal bilaterally, external ears normal, TM's normal bilaterally, TM normal on the right, TM normal on the left, EAC's normal and mastoids normal General nose exam: Normal external nose present, Normal nares present and No nasal polyps present Face and sinus: Yes normal facial exam, Yes sinuses nontender and Yes face symmetric Mouth: Normal oral and palatal mucosa present, lip normal and tongue normal Teeth and gingiva: dentition normal and gingiva normal Throat: Yes posterior oropharynx normal, Yes tonsils normal and Yes uvula midline Eyes General: appearance normal, both eyes and all related structures Neck Neck: Yes normal visual inspection, Yes full ROM, Yes no lymphadenopathy, Yes no meningeal signs, Yes trachea midline, Yes supple, No anterior neck swelling and No tender Chest Chest palpation & inspection: normal inspection of the chest and normal palpation of entire chest wall Resp Effort & Inspection: normal respiratory effort and able to speak in complete sentences Auscultation: clear to auscultation bilaterally Cardio Jugular venous distension: no JVD Heart sounds: S1 normal heart sound present and S2 normal heart sound present GI Inspection: Yes normal to inspection and No abdominal wall ecchymosis Palpation (GI): Soft to palpation, not firm, nontender and no guarding General: Yes no CVA tenderness Back/Spine/Pelvis Back: no CVA tenderness and No back tenderness Skin General skin exam: no rashes or lesions noted, elasticity normal and turgor normal Neuro General: oriented to person, oriented to place, oriented to time, patient oriented x3, gait normal, tone normal, moves all extremities, Normal light touch and pain sensation, no meningeal signs and no focal motor deficits Extrem General: Yes normal to inspection, Yes full ROM and Yes capillary refill normal Psych Appearance: grossly normal, well kempt and not disheveled Course Course Course Narrative: RME: 27 yold male presents to the ED for sore throat, headahces, and bodyaches. no chest pain or shorntess of breath. covid, influneza, and strep ordered Medical Decision Making Medical Decision Making [facility] Narrative: 27 yold male presents to the ED for sore throat, headache, and bodyahces since today. Patient states no drooling, chest pain, neck swelling, or shortness of breath. positive for strep. patient is well appearing. negative for signs of peritonsillar abscess. positive for flu Differential Diagnosis Differential Diagnoses: The differential diagnosis associated with the presentation includes (strep, covid, infelunza, RSV) Lab Data [facility] Lab Attestation statement: I reviewed the patient's lab results. Labs: Lab Results 01/10/23 Range/Units 17:21 COVID-19 (KENISHA) Negative (Negative) COVID-19 Clin Com See Note Influenza Type A (GENEVIEVE) Positive A (Negative) Influenza Type B (GENEVIEVE) Negative (Negative) Influenza A & B Note See Note S. pyogenes GrpA GENEVIEVE Positive A (Negative) External Record Review External record reviewed: Other (Prior ED visit) Prescription Management I considered prescription management with: Pain Medication and Antibiotic Discharge Plan Discharge Clinical Impression: Strep throat, Influenza A Patient Disposition: Home, Self-Care Instructions: Strep Throat (ED), Influenza (ED) Additional Instructions: Return to the ED immediately for any drooling, change in voice, neck swelling, shortness of breath, weakness, chest pain, or any other concerning symptoms. please follow up wt PCP. Prescriptions: New amoxicillin-pot clavulanate 875-125 mg tablet 1 tab PO Q12H 10 Days Qty: 20 0RF oseltamivir [Tamiflu] 75 mg capsule 75 mg PO BID 5 Days Qty: 10 0RF No Action ibuprofen 800 mg tablet 800 mg PO Q8H PRN (Reason: pain) Qty: 14 0RF Stand Alone Forms: Work/School Release Interventions: ED Discharge Assessment Last Done: 01/10/23 18:35 Discharge Date/Time: 01/10/23 18:36 Print Language: Palauan
[2023-01-10 17:53] LABS: IDNOW Serial# 08D9AD1C; Strep A Nucleic Acid Positive (Negative)
[2023-01-10 17:57] LABS: IDNOW Serial# 9DB6401D; Influenza A Positive (Negative); Influenza B2 Negative (Negative)
[2023-01-10 18:14] LABS: COVID-19 Test Negative (Negative); IDNOW Serial# BCCEAD1C
== END 2023-01-10 18:36 | disposition home or self-care (01) ==
LOC: HO.ED 18:33
PROVIDERS: Physician Assistant; Emergency Provider Internal Medicine
DX: J02.0 Streptococcal pharyngitis (principal); J10.1 Influenza due to other identified influenza virus with other respiratory manifestations; Z11.52 Encounter for screening for COVID-19
CPT/HCPCS: 87502; 87635; 87651; 99282; 99283

== ENCOUNTER 2023-02-02 08:05 | Outpatient (REF) | payer OTHER, SELFPAY ==
--- NOTE | ~2023-02-02 | MR_ITS ---
EXAMINATION: MR SHOULDER WITHOUT AND WITH CONTRAST, LEFT CLINICAL INFORMATION: Left shoulder pain. Left shoulder lesion. COMPARISON: Left shoulder radiographs dated 12/10/2022. TECHNIQUE: MRI of the shoulder was performed before and after the intravenous administration of 10 mL Gadavist on a high-field scanner. FINDINGS: ROTATOR CUFF: Minimally increased T2 signal within the supraspinatus tendon which could represent normal variation versus minimal tendinosis. No measurable rotator cuff tendon tear. No muscle atrophy or fatty infiltration. BICEPS: Proximal long head biceps tendon is intact. There is minimal marrow edema within the bicipital groove along the undersurface of the biceps and along the anterosuperior aspect of the femoral head. Findings could be reactive to minimal tenosynovitis or represent a focal osseous contusion. CORACOACROMIAL ARCH: The undersurface of the acromion is curved with no subacromial spur. Mild acromioclavicular osteoarthritis with mild marrow edema. LABRUM/CAPSULE: No labral tear. Intact joint capsule. GLENOHUMERAL JOINT/MARROW: Intact articular cartilage. No acute osseous injury. Within the anterolateral aspect of the proximal humeral metaphysis, there is a heterogeneous, mixed high T2 and low T2 signal focus which is predominantly low T1 signal. This appears cortically based and measures up to 1.6 x 2.8 x 3.6 cm (AP by ML by CC). Mild adjacent cortical thickening without significant erosion to the cortex or associated edema. Minimal internal enhancement without periosteal or soft tissue enhancement. No soft tissue component. MR/MR shoulder LT wo/w con IMPRESSION: 1. Cortically based lesion within the anterolateral aspect of the proximal humeral metaphysis measuring up to 3.6 cm. No associated marrow edema or significant cortical erosion. No aggressive features. Differential diagnosis includes atypical appearance of an enchondroma. If there is increased focal symptomatology, repeat imaging could help further evaluate. 2. Minimal supraspinatus tendinosis versus normal variation. No measurable rotator cuff tendon tear. 3. Minimal marrow edema within the bicipital groove and anterosuperior aspect of the humeral head which could be reactive to minimal tenosynovitis or represent a focal osseous contusion. No associated fracture line. 4. Mild acromioclavicular osteoarthritis with mild marrow edema.
[2023-02-02] MEDS: gadobutroL 10 ML VIAL IVPUSH (09:13)
== END 2023-02-02 08:06 | disposition home or self-care (01) ==
LOC: HO.MRI 08:05
PROVIDERS: Visit Provider Physician Assistant
DX: M75.92 Shoulder lesion, unspecified, left shoulder (principal); M75.82 Other shoulder lesions, left shoulder
CPT/HCPCS: 73223; A9585

== ENCOUNTER 2023-02-27 13:21 | Outpatient (AMB) | payer OTHER, SELFPAY ==
[2023-02-27 13:25] VITALS: BP 116/72; PULSE 64; O2SAT 97; BMI 39.6
--- NOTE | 2023-02-27 13:25 | MHC.PC.OV ---
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 Past medical history significant for left foot plantar fasciitis, tendinitis of left rotator cuff and left shoulder lesion. Review of the notes patient currently following with orthopedic for left rotator cuff and left shoulder lesion is being further evaluated with MRI patient has upcoming follow-up scheduled on 03/07 to follow up on MRI results. GALA 7 positive states hes been worrying about things and having trouble decompressing. and will wake up with anxiety and rapis heart beat sweating. Discussed trialling patient on medication for anxiety. 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 Patient made aware I would be sending in a daily medication I would not be prescribing him a controlled substance such as a benzodiazepine. Patient states would like to hold off on medication at this time and would like referral to counseling. Last seen by [facility] not seen in 10 years. [facility] Medical History (Updated 02/27/23 @ 13:57 by TIM Roach) Asthma Fracture of fifth metatarsal bone with routine healing Fracture of fifth metatarsal bone of right foot Surgical History Hx of foot surgery Family History (Updated 02/27/23 @ 13:44 by TIM Roach) Mother Diabetes Father HTN (hypertension) Social History (Updated 02/27/23 @ 13:45 by TIM Roach) Housing: House Alcohol intake: current Alcohol intake frequency: holidays/special occasions only Patient Tobacco Use Status: Never used Tobacco e-Cigarette/Vaping Use: Former Use Date or number of years quit: 2016 service: No Current occupational status: employed 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 1. Little interest or pleasure in doing things: not at all 2. Feeling down, depressed, or hopeless: not at all 3. Trouble falling or staying asleep, or sleeping too much: not at all 4. Feeling tired or having little energy: not at all 5. Poor appetite or overeating: not at all 6. Feeling bad about yourself - or that you are a failure or have let yourself or your family down: not at all 7. Trouble concentrating on things, such as reading the newspaper or watching television: not at all 8. Moving or speaking so slowly that other people could have noticed. Or the opposite - being so fidgety or restless that you have been moving around a lot more than usual: not at all 9. Thoughts that you would be better off or of hurting yourself in some way: not at all Total score: 0 Depression Screening Interpretation: Negative Depression Screening Done: Yes 21945 - PHQ-9 Billing: Yes Source: Developed by Drs. Salazar Marroquin, Sonia Guajardo, Mika Curran and colleagues, with an educational yao from [employer]. Thrive Questionnaire Date Thrive assessed: 02/27/23 I am a: Patient What is your living situation today?: I have a steady place to live Within the past 12 months, did the food you bought not last and you didn't have the money to get more?: Never true Within the past 12 months, did you worry whether your food would run out before you got money to buy more?: Never true Do you have trouble paying for medicines?: No Do you have trouble getting transportation to medical appointments?: No Do you have trouble paying your heating and electricity bill?: No Do you have trouble taking care of your child, family member or friend?: No Do you have trouble with day-to-day activities such as bathing, preparing meals, shopping, managing finances, etc.?: No Are you currently unemployed and looking for a job?: No Are you interested in more education?: No Please select the resources that you would like help with: None Currently or been in a relationship where the following occur: no concerns reported AUDIT C Alcohol Use Questionnaire (AUDIT-C) 1. How often do you have a drink containing alcohol?: Monthly or less 2. How many drinks containing alcohol do you have on a typical day when you are drinking?: 1 or 2 3. How often do you have six or more drinks on one occasion?: Never Total Score: 1 GALA-7 AMB Questionnaire GALA-7 Date GALA - 7 assessed: 02/27/23 Feeling nervous, anxious, or on edge: 3 = Nearly every day Not being able to stop or control worryin = Nearly every day Worrying too much about different things: 2 = More than half the days Trouble relaxin = Nearly every day Being so restless that it is hard to sit still: 2 = More than half the days Becoming easily annoyed or irritable: 1 = Several days Feeling afraid as if something awful might happen: 3 = Nearly every day Total GALA-7 score (0-4 normal; 5-9 mild; 10-14 moderate; 15-21 severe): 17 Source: Developed by Drs. Salazar Marroquin, Sonia Guajardo, Mika Curran and colleagues, with an educational yao from [employer]. GALA-7 Assessment Billing GALA-7 Assessment Tool: GALA-7 Assessment 29493 Review of Systems Const Denies chills, Denies fatigue, Denies fever(s) and Denies poor appetite Eyes Denies no additional complaints ENT Reports Normal hearing present Card Denies chest pain, Denies syncope, Denies rapid heart rate and Denies dyspnea Resp Denies cough and Denies dyspnea GI Denies change in stool character, Denies constipation, Denies diarrhea, Denies nausea and Denies vomiting Denies dysuria, Denies urinary frequency and Denies urinary urgency Neuro Reports Normal hearing present, Denies confusion and Denies syncope Psych Denies confusion Endo Denies fatigue Physical exam (Primary Care) Vital Signs: Last Vital Signs Pulse 64 02/27/23 13:25 BP 116/72 02/27/23 13:25 Pulse Ox 97 02/27/23 13:25 Oxygen Delivery Method Room Air 02/27/23 13:25 BMI result Body Mass Index 39.6 Tobacco/Smoking Status: Tobacco use Status Tobacco use date assessed 03/21/23 02/27/23 13:36 Patient Tobacco Use Status Never used Tobacco 02/27/23 13:45 e-Cigarette/Vaping Use Former Use 02/27/23 13:45 PHQ-9: PHQ-9 Score PHQ-9: Total score 0 02/27/23 13:47 Depression Screening Interpretation: Negative Thrive Assessment: Date of Thrive Assessment Date Thrive assessed 02/27/23 02/27/23 13:36 Currently or been in a relationship where the following occur: no concerns reported Const General: No confusion Orientation/consciousness: No confusion HENMT Head: Yes normocephalic and Yes atraumatic Ears: external ears normal and TM's normal bilaterally General nose exam: Normal external nose present and Normal nasal mucous membranes and turbinates present Face and sinus: Yes normal facial exam and Yes sinuses nontender Mouth: moist mucous membranes Throat: Yes tonsils normal Eyes Conjunctivae: conjunctivae normal Sclerae: sclerae normal Pupils: Equal, round and reactive pupils present and Pupils normal by confrontation EOM: EOMs intact bilaterally Direct Ophthalmoscopy: normal light reflex Neck Neck: Yes no lymphadenopathy and Yes supple Thyroid: Thyroid normal Chest Chest palpation & inspection: normal inspection of the chest Resp Effort & Inspection: normal respiratory effort Auscultation: clear to auscultation bilaterally, no crackles, no rhonchi and no wheezes Cardio Rate: regular rate Rhythm: regular rhythm Peripheral pulses: radial pulses present and dorsalis pedis present GI Inspection: Yes normal to inspection Palpation (GI): Soft to palpation, nontender and No hepatosplenomegaly present Auscultation: normoactive bowel sounds Skin General skin exam: no rashes or lesions noted Neuro General: No confusion Cranial nerves: Yes Equal, round and reactive pupils present and Yes Normal hearing present Cognition (Neuro): normal cognition Gait exam (Neuro): Normal gait present Motor exam (neuro): 5/5 motor strength present throughout Deep tendon reflexes (DTR's): Right brachioradialis reflex intensity grade: 2+, Left brachioradialis reflex intensity grade: 2+, Right patellar reflex intensity grade: 2+ and Left patellar reflex intensity grade: 2+ Extrem General: No edema Assessment and Plan Assessment & Plan (1) Generalized anxiety disorder: Code(s): F41.1 - Generalized anxiety disorder Plan: Referral entered to counseling (2) Asthma: Code(s): J45.909 - Unspecified asthma, uncomplicated Plan: Patient reports asthma during childhood, however he usually does not require an inhaler unless he comes down with a viral illness. Patient requesting refill on albuterol inhaler to have as needed, Rx sent to patient's pharmacy. (3) Lesion of left shoulder: Code(s): M75.92 - Shoulder lesion, unspecified, left shoulder Plan: Patient has upcoming appointment scheduled with orthopedic on 03/07/2023 to review MRI results. (4) Tendonitis of left rotator cuff: Code(s): M75.82 - Other shoulder lesions, left shoulder Plan: Continue to follow with orthopedic. (5) Physical exam, annual: Code(s): Z00.00 - Encounter for general adult medical examination without abnormal findings Plan: Patient recommended to get up dated eye exam. Given patient experiencing anxiety will draw CMP and TSH to further evaluate. Follow-up in 1 year sooner if needed (6) Generalized anxiety disorder: Code(s): F41.1 - Generalized anxiety disorder Plan Follow-up in 1 year sooner if needed Orders: Orders TSH reflex Free T4 Today Z13.29 - Encounter for screening for other suspected endocrine disorder Comprehensive Met. Panel Today F41.1 - Generalized anxiety disorder Referrals Counseling Referral F41.1 - Generalized anxiety disorder Medications: New albuterol sulfate 90 mcg/actuation (Ventolin HFA) 2 puffs inhalation Q6H PRN 6.7 grams 0RF shortness of breath or wheezing J45.909 - Unspecified asthma, uncomplicated Discontinued oseltamivir (Tamiflu) Discontinued Reason: Patient Completed Course 75 mg PO BID 5 days 10 caps 0RF Coding Level of Care Code Est Pt Prev Care 18-39y(94543) Diagnoses Generalized anxiety disorder F41.1 Asthma J45.909 Lesion of left shoulder M75.92 Tendonitis of left rotator cuff M75.82 Physical exam, annual Z00.00 Additional Codes GALA-7 Assessment Billing - GALA-7 Assessment Tool: GALA-7 Assessment [id number] ([id number])
== END 2023-02-27 13:56 | disposition home or self-care (01) ==
PROVIDERS: Visit Provider Nurse Practitioner Family
DX: Z00.00 Encounter for general adult medical examination without abnormal findings (principal); F41.1 Generalized anxiety disorder; J45.909 Unspecified asthma, uncomplicated; M75.92 Shoulder lesion, unspecified, left shoulder; M75.82 Other shoulder lesions, left shoulder
CPT/HCPCS: 99395

== ENCOUNTER 2023-04-04 14:54 | Outpatient (AMB) | payer OTHER, SELFPAY ==
--- NOTE | 2023-04-04 15:00 | MHC.OFFVIS ---
Intake Vital Signs 04/04/23 15:02 Height 5 ft 7 in Weight 253 lb BMI 39.6 Intake Visit Reasons: OV-Left shoulder MRI review Intake Note: Sandoval king 27 year old male presents today for an MRI review of left shoulder. Patient reports that he continues to have intermittent pain and occasional numbness and tingling in his palm. Allergies No Known Allergies Allergy (Verified 04/04/23 15:06) HPI OV-Left shoulder MRI review HPI Details 27-year-old male who returns to the office today for an MRI review of left shoulder. He continues to have intermittent pain and occasional numbness and tingling in his palm after few hours of waking up and after the work hours. He denies any sharp shooting pain. He is doing well overall. [facility] Medical History (Updated 04/04/23 @ 16:08 by Tiffanie Correa PA-C) Asthma Fracture of fifth metatarsal bone with routine healing Fracture of fifth metatarsal bone of right foot Surgical History Hx of foot surgery Family History (Updated 02/27/23 @ 13:44 by TIM Roach) Mother Diabetes Father HTN (hypertension) Social History Housing: House Alcohol intake: current Alcohol intake frequency: holidays/special occasions only Patient Tobacco Use Status: Never used Tobacco e-Cigarette/Vaping Use: Former Use Date or number of years quit: 2016 service: No Current occupational status: employed 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 Tenderness over the bicipital groove and along the deltoid region of the shoulder. Forward flexion to 175, external rotation to 90, internal rotation to S1. 5/5 RTC strength. Positive Muñoz and cross body abduction. NVI. Left wrist: Normal to inspection. Tenderness over the carpal canal. Numbness and tingling over the median nerve distribution of the right hand. Able to make a full fist and fully extend all fingers. Positive Tinel's. Results Reviewed Results Reviewed: MRI left shoulder 02/02/23 IMPRESSION: 1. Cortically based lesion within the anterolateral aspect of the proximal humeral metaphysis measuring up to 3.6 cm. No associated marrow edema or significant cortical erosion. No aggressive features. Differential diagnosis includes atypical appearance of an enchondroma. If there is increased focal symptomatology, repeat imaging could help further evaluate. 2. Minimal supraspinatus tendinosis versus normal variation. No measurable rotator cuff tendon tear. 3. Minimal marrow edema within the bicipital groove and anterosuperior aspect of the humeral head which could be reactive to minimal tenosynovitis or represent a focal osseous contusion. No associated fracture line. 4. Mild acromioclavicular osteoarthritis with mild marrow edema. Assessment & Plan Assessment & Plan (1) Tendonitis of left rotator cuff: Code(s): M75.82 - Other shoulder lesions, left shoulder (2) Lesion of left shoulder: Code(s): M75.92 - Shoulder lesion, unspecified, left shoulder (3) Carpal tunnel syndrome on left: Code(s): G56.02 - Carpal tunnel syndrome, left upper limb Plan He was given Velcro left wrist at night and an EMG nerve study was ordered for his left wrist to further evaluate the etiology of his symptoms. Orders: Orders NE electromyogram (EMG) Today R20.0 - Anesthesia of skin, R20.2 - Paresthesia of skin NE nerve conduction velocity Today R20.0 - Anesthesia of skin, R20.2 - Paresthesia of skin Patient Instructions: Scribed for Tiffanie Correa PA-C, by Humberto Miller medical coding technician, on 04/04/2023 at 3:00 PM EST. I, Tiffanie Correa PA-C, have personally reviewed and agree with the information entered by the scribe. Coding Level of Care Code Est Pt Level 3 (69734) Diagnoses Tendonitis of left rotator cuff M75.82 Lesion of left shoulder M75.92 Carpal tunnel syndrome on left G56.02
[2023-04-04 15:02] VITALS: BMI 39.6
== END 2023-04-04 15:22 | disposition home or self-care (01) ==
PROVIDERS: Visit Provider Physician Assistant
DX: M75.82 Other shoulder lesions, left shoulder (principal); M75.92 Shoulder lesion, unspecified, left shoulder; G56.02 Carpal tunnel syndrome, left upper limb
CPT/HCPCS: 99213

== ENCOUNTER → 2023-04-04 14:54 | Outpatient (BNVA) | payer OTHER, SELFPAY | PROVIDERS: Visit Provider Physician Assistant | DX: M75.82 Other shoulder lesions, left shoulder (principal); G56.02 Carpal tunnel syndrome, left upper limb | CPT/HCPCS: 99212 ==

== ENCOUNTER 2023-05-03 15:00 | Outpatient (REF) | payer OTHER, SELFPAY ==
--- NOTE | 2023-05-03 15:13 | EMG_ITS ---
Chief complaint: Left shoulder pain, rotator cuff tendinitis, tingling/numbness on fingers Reason for referral: Evaluate for Carpal Tunnel Syndrome Referred by: Tiffanie ESPARZA Procedure done: Left upper extremity NCS/EMG Precautions and/or limitations: None The limb temperature was monitored continuously and remained between 32-36 degrees C during the performance of the NCS. Nerve Conduction Studies Anti Sensory Summary Table ?Stim Site NR Onset (ms) Norm Onset (ms) Peak (ms) Norm Peak (ms) O-P Amp (?V) Norm O-P Amp Site1 Site2 Delta-0 (ms) Dist (cm) Patrick (m/s) Norm Patrick (m/s) Left Median Anti Sensory (2nd Digit) Wrist ? 2.1 2.8 <3.6 76.9 >10 Wrist 2nd Digit 2.1 14.0 67 Left Ulnar Anti Sensory (5th Digit) Wrist ? 2.1 2.8 <3.7 64.7 >15.0 Wrist 5th Digit 2.1 14.0 67 Motor Summary Table ?Stim Site NR Onset (ms) Norm Onset (ms) O-P Amp (mV) Norm O-P Amp iAmp (mV) Amp (1st) (%) Site1 Site2 Delta-0 (ms) Dist (cm) Patrick (m/s) Norm Patrick (m/s) Left Median Motor (Abd Poll Brev) Wrist ? 3.0 <3.9 13.2 >4.5 15.2 100.0 Elbow Wrist 3.8 23.0 61 >45 Elbow ? 6.8 15.0 17.7 113.6 Left Ulnar Motor (Abd Dig Minimi) Wrist ? 2.5 <3.0 6.5 >5 7.8 100.0 B Elbow Wrist 3.6 21.0 58 >45 B Elbow ? 6.1 4.8 5.9 73.8 A Elbow B Elbow 1.2 10.0 83 >45 A Elbow ? 7.3 5.6 7.1 86.2 Comparison Summary Table ?Stim Site NR Peak (ms) Norm Peak (ms) P-T Amp (?V) Site1 Site2 Delta-P (ms) Norm Delta (ms) Left Median/Radial Dig I Comparison (Digit 1 - 10cm) Median ? 2.1 <2.9 100.1 Median Radial 0.1 Radial ? 2.2 <2.8 33.2 EMG ?Side Muscle Nerve Root Ins Act Fibs Psw Amp Dur Poly Recrt Int Pat Comment Left 1stDorInt Ulnar C8-T1 Nml Nml Nml Nml Nml 0 Nml Complete Left FlexCarRad Median C6-7 Nml Nml Nml Nml Nml 0 Nml Complete Left Biceps Musculocut C5-6 Nml Nml Nml Nml Nml 0 Nml Complete Left Triceps Radial C6-7-8 Nml Nml Nml Nml Nml 0 Nml Complete Left Deltoid Axillary C5-6 Nml Nml Nml Nml Nml 0 Nml Complete FINDINGS: All motor and sensory nerves tested showed normal latencies, amplitudes and conduction velocities. Concentric needle EMG was performed in selected muscles of the left upper extremity. Study did not reveal signs of electric abnormalities as shown in the table below. IMPRESSION: 1. This is a normal study. 2. There is no electrodiagnostic evidence for median neuropathy, ulnar neuropathy, brachial plexopathy, or cervical radiculopathy. Thank you for your kind referral. Marian Clemons MD, FER Board Certified, [place] Board [employer] and Rehabilitation (ABPMR) Board Certified, [place] Board of Electrodiagnostic Medicine (ABEM) CODIN [id number] MTDD
== END 2023-05-03 15:01 | disposition home or self-care (01) ==
LOC: HO.NEURO 15:00
PROVIDERS: Visit Provider Physician Assistant
DX: R20.0 Anesthesia of skin (principal); R20.2 Paresthesia of skin
CPT/HCPCS: 95886; 95909

== ENCOUNTER → 2023-05-03 15:13 | Outpatient (BNV) | payer OTHER, SELFPAY | PROVIDERS: Visit Provider Physical Medicine & Rehabilitation | DX: M25.512 Pain in left shoulder (principal); M79.642 Pain in left hand; R20.2 Paresthesia of skin | CPT/HCPCS: 95886; 95909 ==

== ENCOUNTER → 2023-05-21 15:25 | Outpatient (BNVA) | payer OTHER, SELFPAY | PROVIDERS: Visit Provider Physician Assistant ==

== ENCOUNTER 2024-01-04 05:36 | Emergency (ER) | payer OTHER, SELFPAY ==
--- NOTE | 2024-01-04 | ECG_ITS ---
Test Reason : FAST HR Blood Pressure : / mmHG Vent. Rate : 085 BPM Atrial Rate : 085 BPM P-R Int : 178 ms QRS Dur : 096 ms QT Int : 340 ms P-R-T Axes : -24 145 -24 degrees QTc Int : 404 ms Normal sinus rhythm Possible Lateral infarct , age undetermined T wave abnormality, consider inferior ischemia Abnormal ECG When compared with ECG of 27-DEC-2022 10:55, QRS axis Shifted right Borderline criteria for Lateral infarct are now Present Referred By: Generic ED Physician Electronically Signed By:
--- NOTE | ~2024-01-04 | XR_ITS ---
EXAMINATION: XR CHEST CLINICAL INFORMATION: Chest pain. COMPARISON: 12/27/2022. TECHNIQUE: 2 views of the chest were obtained. FINDINGS: Cardiac, hilar, and mediastinal contours are normal. Normal tracheal air column. Lungs are clear bilaterally. No pleural effusions or pneumothorax. No bony or soft tissue abnormalities noted. XR/XR chest 2V IMPRESSION: No active disease. Normal chest. Electronically signed by: Rodger Zaidi MD 01/04/2024 09:27 AM EDT
[2024-01-04 05:38] VITALS: BP 135/83; PULSE 89; RESP 16; TEMP 36.6; O2SAT 98; BMI 40.9
[2024-01-04 06:15] LABS: Basophils Absolute Auto 0.1 X10*3/uL (0.0-0.2); Basophils Percent Auto 0.6 % (0-2); Eosinophils Absolute Auto 0.6 X10*3/uL (0.0-0.4); Eosinophils Percent Auto 5.3 % (0-4); Hematocrit 42.2 % (42.0-52.0); Hemoglobin 14.3 g/dl (14.0-18.0); Imm Gran Pct Auto 0.9 % (0.0-0.4); Lymphocytes Absolute Auto 3.4 X10*3/uL (1.2-4.9); MANUAL DIFF FLAG NO; Mean Corpuscular HGB Conc 33.9 g/dl (31.0-36.0); Mean Corpuscular Hemoglobin 29.9 pg (27.0-33.0); Mean Corpuscular Volume 88.1 fL (80.0-98.0); Mean Platelet Volume 10.6 fL (9.4-12.4); Monocytes Absolute Auto 0.8 X10*3/uL (0.1-1.2); Monocytes Percent Auto 6.9 % (2-11); Neutrophils Absolute Auto 6.1 x10*3/uL (2.0-8.3); Neutrophils Percent Auto 55.3 % (45-73); Platelet Count 204 X10*3/uL (160-400); Red Blood Count 4.79 X10*6/uL (4.60-5.80); Red Cell Distribution Width 12.1 % (11.0-16.0)
[2024-01-04 06:31] LABS: Alanine Aminotransferase 28 U/L (0-40); Albumin Level 4.3 g/dL (3.5-5.0); Alkaline Phosphatase 71 U/L (39-117); Anion Gap 12 (12-20); Aspartate Amino Transferase 19 U/L (5-37); Bilirubin Total 0.3 mg/dL (0.0-1.0); Blood Urea Nitrogen 15 mg/dL (9-16); Calcium 10.1 mg/dL (8.4-10.2); Carbon Dioxide 24 mmol/L (22-29); Chloride 104 mmol/L (96-108); Creatinine Clr Calc Pharmacy 139.6; Estimated Glomerular Filt Rate > 60; Glucose Random 135 mg/dL (60-115); Potassium 3.2 mmol/L (3.3-5.1); Sodium 137 mmol/L (135-145); Total Protein 7.7 g/dL (6.5-8.0)
[2024-01-04 06:40] LABS: Troponin-I High Sensitivity < 2.7 ng/L (<3.5-35.0)
--- NOTE | 2024-01-04 06:45 | ED_ITS ---
HPI - Chest Pain General Chief Complaint: Chest Pain Stated Complaint: left arm/ chest hurts, tingling in fingers Time Seen by Provider: 01/04/24 06:40 Source: patient Mode of arrival: ambulatory Limitations: no limitations History of Present Illness ED Provider: Letha Argueta PA-C HPI narrative: Patient is a 28 year old assigned male at with a history of GALA presenting to the emergency department today with palpitations and left sided chest pain. Patient states that he woke up from sleep with a racing heart. Patient states that he has also had waves of left sided chest pain that radiates into his left arm. Patient denies any dizziness, lightheadedness, abdominal pain, nausea, vomiting, fever, chills, blurry vision, double vision, loss of vision, difficulty breathing, shortness of breath, back pain, night sweats, pain with urination, increased urinary frequency, increased urinary urgency, blood in his urine or stool, syncope or a near syncopal episode, recent trauma or falls, bowel incontinence, bladder incontinence, or any other complaints at this time. Related Data Previous Rx's ?Medication ?Instructions ?Recorded ibuprofen 800 mg tablet 800 mg PO Q8H PRN pain #14 tabs 12/27/22 albuterol sulfate 90 mcg/actuation 2 puff inhalation Q6H PRN 03/25/23 aerosol inhaler (Ventolin HFA) shortness of breath or wheezing #6.7 grams Allergies Allergy/AdvReac Type Severity Reaction Status Date / Time No Known Allergies Allergy Verified 01/04/24 05:42 Review of Systems 2 Constitutional: Constitutional: Reports no additional constitutional complaints, Denies chills, Denies fever(s) and Denies night sweats Eyes: Eyes: Reports no additional eye complaints, Denies blurry vision, Denies change in vision, Denies diplopia, Denies eye discharge, Denies loss of vision and Denies eye pain ENT: Denies dizziness Cardiovascular: Cardiovascular: Reports no additional cardiovascular complaints, Reports chest pain, Denies lightheadedness, Denies Loss of Consciousness, Reports palpitations and Denies dyspnea Respiratory: Respiratory: Reports no additional respiratory complaints and Denies dyspnea Gastrointestinal: Gastrointestinal: Reports no additional gastrointestinal complaints, Denies abdominal pain, Denies melena, Denies hematochezia, Denies change in bowel habits and Denies change in stool character Genitourinary: Genitourinary: Reports no additional male genitourinary complaints, Denies hematuria, Denies oliguria, Denies difficulty urinating, Denies dysuria, Denies urinary frequency, Denies urinary hesitancy, Denies urinary incontinence and Denies urinary urgency Musculoskeletal: Musculoskeletal: Reports no additional musculoskeletal complaints, Denies numbness and Denies tingling Neurologic: Denies dizziness, Denies loss of vision, Denies numbness and Denies tingling Psychiatric: Psychiatric: Reports no additional psychiatric complaints Endocrine: Endocrine: Reports no additional endocrine complaints and Reports palpitations Hematologic/Lymphatic: Hematologic/Lymphatic: Reports no additional hematologic/lymphatic complaints Allergic/Immunologic: Allergic/Immunologic: Reports no additional allergic/immunologic complaints [facility] Past Medical History Attestation statement: The following information was validated with the patient. Source: old records reviewed and nursing notes reviewed Medical History Asthma Fracture of fifth metatarsal bone with routine healing Fracture of fifth metatarsal bone of right foot Surgical History Hx of foot surgery Family History Family History Mother Diabetes Father HTN (hypertension) Social History Social History Housing: House Alcohol intake: current Alcohol intake frequency: holidays/special occasions only Patient Tobacco Use Status: Never used Tobacco Smoked in Last 30 Days: No e-Cigarette/Vaping Use: Former Use Date or number of years quit: 2016 Advance Directives: No Advance Directives Information Provided: No Do you have a plan to hurt others: No Plan service: No Current occupational status: employed 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 Current occupational exposures/hazards: Yes Cognitive needs: No Hearing needs: No Vision needs: Yes Physical Exam 2 Vital Signs: Vital Signs: Last Vital Signs Temp 98.2 F 01/04/24 09:41 Pulse 71 01/04/24 09:41 Resp 18 01/04/24 09:41 BP 112/65 01/04/24 09:41 Pulse Ox 98 01/04/24 09:41 O2 Del Method Room Air 01/04/24 09:41 BMI result Body Mass Index 40.9 Const: General: cooperative, no acute distress, alert and awake Nutritional Appearance: well nourished Orientation/consciousness: patient oriented x3 Limitations: no limitations HEENT: Head: Yes normal to inspection and Yes atraumatic Ears: hearing grossly normal bilaterally and external ears normal General nose exam: Normal external nose present, no nasal discharge noted and no epistaxis Face and sinus: Yes normal facial exam, No abrasion and No laceration Mouth: Normal oral and palatal mucosa present, no drooling and no muffled voice Eyes: General: appearance normal, both eyes and all related structures P eriorbital: periorbital findings normal Eyelids: Yes eyelids normal C onjunctivae: conjunctivae normal Pupils: Equal, round and reactive pupils present EOM: EOMs intact bilaterally Neck: Neck: Yes normal visual inspection, Yes full ROM and Yes no lymphadenopathy Chest: Chest palpation & inspection: normal inspection of the chest Resp: Effort & Inspection: normal respiratory effort and able to speak in complete sentences GI: Inspection: Yes normal to inspection Neuro: General: patient oriented x3 and moves all extremities Cranial nerves: Yes Equal, round and reactive pupils present Cognition (Neuro): n ormal cognition Extrem: General: Yes normal to inspection, Yes full ROM and Yes capillary refill normal Psych: Appearance: grossly normal Mental Status: mental status grossly normal Affect: normal affect Attitude: cooperative Thought process: N ormal thought process present Thought content: Normal thought content present Insight: Good insight present (Psych) Medications Administered Discontinued Medications Generic Name Dose Route Start Last Admin Trade Name Edilsonq PRN Reason Stop Dose Admin Lorazepam 1 mg 01/04/24 07:13 01/04/24 08:03 Lorazepam 1 Mg Tablet PO 01/04/24 07:14 1 mg ONCE ONE Administration Omeprazole 20 mg 01/04/24 07:13 01/04/24 08:03 Omeprazole 20 Mg Capsule.Dr PO 01/04/24 07:14 20 mg ONCE ONE Administration Medical Decision Making Medical Decision Making MDM Narrative: Patient is a 28 year old assigned male at with a history of GALA presenting to the emergency department today with palpitations and left sided chest pain. Patient's physical exam was unremarkable. Patient's blood work showed a very mild WBC elevation at 11 but were otherwise unremarkable. Patient's EKG was unremarkable. Patient's chest x-ray showed no acute process. I explained my physical exam findings as well as all test results to the patient. I answered all questions asked by the patient. I stressed the importance of the patient taking his medication as directed (either prescribed or as the over the counter packaging recommends). I stressed the importance of the patient following up with his primary care provider and a vice chairman. I stressed the importance of the patient returning to the emergency department immediately if his symptoms were to worsen or if he were to develop any dizziness, shortness of breath, difficulty breathing, chest pain, blurry vision, loss of vision, nausea, vomiting, abdominal pain, fever, chills, back pain, or any other complaints. Patient verbalized agreement and understanding with this treatment plan and discharge. Differential Diagnosis Differential Diagnoses: The differential diagnosis associated with the presentation includes NSTEMI STEMI Angina Stable angina Anxiety Admission/Observation Consideration of admission/observation: Escalation of care including admission/observation considered Patient would have been admitted to the hospital had his work up had any findings where hospital admission was appropriate and his clinical presentation warranted hospital admission. Lab Data [facility] Lab Attestation statement: I reviewed the patient's lab results. My interpretation of these results are in the [facility] Rationale portion of this note. 01/04/24 06:10 01/04/24 06:10 Labs: Lab Results 01/04/24 01/04/24 01/04/24 Range/Units 06:10 06:11 07:32 WBC 11.0 H (4.8-10.8) X10*3/uL RBC 4.79 (4.60-5.80) X10*6/uL Hgb 14.3 (14.0-18.0) g/dl Hct 42.2 (42.0-52.0) % MCV 88.1 (80.0-98.0) fL MCH 29.9 (27.0-33.0) pg MCHC 33.9 (31.0-36.0) g/dl RDW 12.1 (11.0-16.0) % Plt Count 204 (160-400) X10*3/uL MPV 10.6 (9.4-12.4) fL Immature Gran % (Auto) 0.9 H (0.0-0.4) % Neut % (Auto) 55.3 (45-73) % Lymph % (Auto) 31.0 (20-40) % [place] % (Auto) 6.9 (2-11) % Eos % (Auto) 5.3 H (0-4) % Baso % (Auto) 0.6 (0-2) % Lymph # (Auto) 3.4 (1.2-4.9) X10*3/uL [place] # (Auto) 0.8 (0.1-1.2) X10*3/uL Eos # (Auto) 0.6 H (0.0-0.4) X10*3/uL Baso # (Auto) 0.1 (0.0-0.2) X10*3/uL Abs Immat Gran (auto) 0.10 H (0.00-0.03) X10*3/uL Absolute Neuts (auto) 6.1 (2.0-8.3) x10*3/uL Absolute Nucleated RBC 0.000 (0.0-0.012) X10*3/uL Nucleated RBC % (auto) 0.0 (0.0-0.2) /100WBC Sodium 137 (135-145) mmol/L Potassium 3.2 L (3.3-5.1) mmol/L Chloride 104 (96-108) mmol/L Carbon Dioxide 24 (22-29) mmol/L Anion Gap 12 (12-20) BUN 15 (9-16) mg/dL Creatinine 0.97 (0.5-1.4) mg/dL Estim Creat Clear Calc 139.6 Estimated GFR > 60 Random Glucose 135 H (60-115) mg/dL Calcium 10.1 (8.4-10.2) mg/dL Total Bilirubin 0.3 (0.0-1.0) mg/dL AST 19 (5-37) U/L ALT 28 (0-40) U/L Alkaline Phosphatase 71 (39-117) U/L Troponin I High Sens < 2.7 (<3.5-35.0) ng/L Total Protein 7.7 (6.5-8.0) g/dL Albumin 4.3 (3.5-5.0) g/dL Influenza Type A (PCR) NEGATIVE (Negative) Influenza Type B (PCR) NEGATIVE (Negative) RSV RNA Qual (PCR) NEGATIVE (Negative) SARS-CoV-2 RNA (RT-PCR) NEGATIVE (Negative) Independent Interpretation I performed an independent interpretation of an: EKG and Plain X-Ray Interpretation: My interpretation is in agreement with the radiologist's impression of this imaging study. L EXAMINATION: XR CHEST CLINICAL INFORMATION: Chest pain. COMPARISON: 12/27/2022. TECHNIQUE: 2 views of the chest were obtained. FINDINGS: Cardiac, hilar, and mediastinal contours are normal.Normal tracheal air column. Lungs are clear bilaterally. No pleural effusions or pneumothorax. No bony or soft tissue abnormalities noted. XR/XR chest 2V IMPRESSION: No active disease. Normal chest. Electronically signed by: Rodger Zaidi MD 01/04/2024 09:27 AM EDT RP Dictated By: Rodger Zaidi MD Signed By: Electronically signed by Rodger Zaidi MD 01/04/24 0927 Vent. Rate: 085 BPM Atrial Rate: 085 BPM P-R Int: 178 ms QRS Dur: 096 ms QT Int: 340 ms P-R-T Axes: -24 145 -24 degrees QTc Int: 404 ms Normal sinus rhythm When compared with ECG of 27-DEC-2022 10:55, QRS axis Shifted right Borderline criteria for Lateral infarct are now Present DD/ [id number] Radiology Impression Discussion of test interpretation with radiology: I have reviewed the radiologist's reading. Discharge Plan Discharge Clinical Impression: Atypical chest pain Patient Disposition: Home, Self-Care Instructions: Chest Pain (DC) Additional Instructions: All of your testing today was reassuring that nothing emergent is occurring at this time. Follow up with your primary care provider and a vice chairman. Return to the emergency department immediately if your symptoms worsen or if you develop any dizziness, shortness of breath, difficulty breathing, chest pain, blurry vision, loss of vision, nausea, vomiting, abdominal pain, fever, chills, back pain, or any other complaints. Prescriptions: No Action albuterol sulfate [Ventolin HFA] 90 mcg/actuation HFA aerosol inhaler 2 puff inhalation Q6H PRN (Reason: shortness of breath or wheezing) Qty: 6.7 0RF ibuprofen 800 mg tablet 800 mg PO Q8H PRN (Reason: pain) Qty: 14 0RF Referrals: [facility] [Provider Group] (Call to establish and follow up with a vice chairman. ) [facility] Family Medicine [Provider Group] (Call to establish and follow up with a primary care provider. If you already have a primary care provider, please follow up with them.) [facility] [facility] [Provider Group] (Call to establish and follow up with a primary care provider. If you already have a primary care provider, please follow up with them.) [facility] [Provider Group] (Call to establish and follow up with a primary care provider. If you already have a primary care provider, please follow up with them.) Stand Alone Forms: Work/School Release Interventions: ED Discharge Assessment Last Done: 01/04/24 09:41 Discharge Date/Time: 01/04/24 09:42 Print Language: Vincentian
[2024-01-04] MEDS: LORazepam 1 MG TABLET PO (08:03)
[2024-01-04] MEDS: Omeprazole 20 MG CAPSULE.DR PO (08:03)
[2024-01-04 08:26] VITALS: BP 112/65; PULSE 71; RESP 18; TEMP 36.8; O2SAT 98
[2024-01-04 08:27] LABS: Influenza A PCR NEGATIVE (Negative); Influenza B PCR NEGATIVE (Negative); Resp Syncy Virus RNA Qual PCR NEGATIVE (Negative); SARS COV2 PCR INHOUSE NEGATIVE (Negative)
--- NOTE | 2024-01-04 09:32 | PC.NURSE ---
Pt enters my care- Pt c/o burning sensation in his epigastrium- pt denied any n/v/d and/or sob
[2024-01-04 09:41] VITALS: BP 112/65; PULSE 71; RESP 18; TEMP 36.8; O2SAT 98
== END 2024-01-04 09:42 | disposition home or self-care (01) ==
PROVIDERS: Physician Assistant Medical; Emergency Provider Emergency Medicine
DX: R07.89 Other chest pain (principal); R00.2 Palpitations; Z03.818 Encounter for observation for suspected exposure to other biological agents ruled out
CPT/HCPCS: 0241U; 36415; 71046; 80053; 84484; 85025; 93005; 99283; 99285

== ENCOUNTER → 2024-01-04 07:12 | Outpatient (BNV) | payer OTHER, SELFPAY | PROVIDERS: Emergency Provider Emergency Medicine; Visit Provider Radiology Diagnostic Radiology | DX: R07.9 Chest pain, unspecified (principal) | CPT/HCPCS: 71046 ==

== ENCOUNTER 2024-03-11 10:38 | Outpatient (AMB) | payer OTHER, SELFPAY ==
[2024-03-11 10:49] VITALS: BP 124/80; PULSE 78; O2SAT 98; BMI 40.9
--- NOTE | 2024-03-11 10:49 | MHC.PC.OV ---
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 Required: No Accompanied by: Self / Same As Patient Allergies No Known Allergies Allergy (Verified 03/11/24 11:24) Medication List - Last Reconciled 03/11/24 by Tatianna Arce PA-C albuterol sulfate 90 mcg/actuation (Ventolin HFA) 2 puffs inhalation Q6H PRN ibuprofen 800 mg PO Q8H PRN Tobacco use date assessed: 03/21/23 Dental Screening Dental Screen Date: 03/11/24 Did you have a dental visit in the last 12 months?: No Did you have a dental problem in the last 6 months where you did not have access to dental care?: No Was dental information given to patient?: Patient has dentist HPI annual exam/IRINEO Inocencia HPI Details 28-year-old male with past medical history plantar fasciitis, generalized anxiety disorder, asthma last seen by nurse practitioner 02/2023 coming in for annual exam.? In review of the notes patient was [place] [facility] [place] complaining of palpitations and left-sided chest pain exam and workup was unremarkable and patient was discharged home. Patient states he uses his albuterol only as needed but will wake up often at night shortness of breath with his heart racing. He notices the heart racing we will continue until he uses 1 of his distraction techniques such as biting a lemon which tends to break the cycle. He also mentions he will occasionally have chest pain primarily after work that will her into the arm and axilla and into the upper back and left shoulder. Last week he had this pain daily and only after work. He says it occasionally will happen with exertion but we will typically resolve with heating pack or ibuprofen. He also mentions he struggles with anxiety and depression and has not been seen or medicated for this in the past. He also has occasional diarrhea and would like to be tested for parasites as he states he eats lots of sushi. Lastly he mentions he has difficulty swallowing and we will occasionally have reflux symptoms primarily at night. 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 1. Little interest or pleasure in doing things: more than half the days 2. Feeling down, depressed, or hopeless: several days 3. Trouble falling or staying asleep, or sleeping too much: more than half the days 4. Feeling tired or having little energy: nearly every day 5. Poor appetite or overeating: several days 6. Feeling bad about yourself - or that you are a failure or have let yourself or your family down: several days 7. Trouble concentrating on things, such as reading the newspaper or watching television: not at all 8. Moving or speaking so slowly that other people could have noticed. Or the opposite - being so fidgety or restless that you have been moving around a lot more than usual: not at all 9. Thoughts that you would be better off or of hurting yourself in some way: not at all Total score: 10 Source: Developed by Drs. Salazar Marroquin, Sonia Guajardo, Mika Curran and colleagues, with an educational yao from [employer]. Thrive Questionnaire Date Thrive assessed: 03/11/24 I am a: Patient What is your living situation today?: I have a steady place to live Within the past 12 months, did the food you bought not last and you didn't have the money to get more?: Never true Within the past 12 months, did you worry whether your food would run out before you got money to buy more?: Never true Do you have trouble paying for medicines?: No Do you have trouble getting transportation to medical appointments?: No Do you have trouble paying your heating and electricity bill?: No Do you have trouble taking care of your child, family member or friend?: No Do you have trouble with day-to-day activities such as bathing, preparing meals, shopping, managing finances, etc.?: Yes Are you currently unemployed and looking for a job?: No Are you interested in more education?: No Please select the resources that you would like help with: None THRIVE Score: 0 AUDIT C Alcohol Use Questionnaire (AUDIT-C) 1. How often do you have a drink containing alcohol?: Monthly or less 2. How many drinks containing alcohol do you have on a typical day when you are drinking?: 3 or 4 3. How often do you have six or more drinks on one occasion?: Less than monthly Total Score: 3 GALA-7 AMB Questionnaire GALA-7 Date GALA - 7 assessed: 03/11/24 Feeling nervous, anxious, or on edge: 1 = Several days Not being able to stop or control worryin = Several days Worrying too much about different things: 1 = Several days Trouble relaxin = Several days Being so restless that it is hard to sit still: 1 = Several days Becoming easily annoyed or irritable: 1 = Several days Feeling afraid as if something awful might happen: 1 = Several days Total GALA-7 score (0-4 normal; 5-9 mild; 10-14 moderate; 15-21 severe): 7 Source: Developed by Drs. Salazar Marroquin, Sonia Guajardo, Mika Curran and colleagues, with an educational yao from [employer]. Review of Systems Const Denies body aches, Reports fatigue, Denies fever(s), Denies frequent falls, Reports headache(s) and Denies weakness Eyes Reports no additional complaints, Denies change in vision and Reports requires corrective lenses (last seen 2019) ENT Reports dysphagia, Denies dizziness, Reports headache(s) and Denies odynophagia Card Details: occasional chest and left arm pain Reports chest pain, Reports chest pain with activity, Denies syncope, Denies irregular heart rhythm, Denies leg edema, Denies lightheadedness and Denies dyspnea Resp Details: Dyspnea at night Denies cough and Denies dyspnea GI Reports abdominal pain (Occasional), Denies constipation, Reports dysphagia, Reports dyspepsia, Reports heartburn, Reports diarrhea (Occasional), Denies nausea, Denies odynophagia and Denies vomiting Denies dysuria, Denies urinary frequency, Denies urinary hesitancy and Denies urinary urgency Musc Denies back pain and Denies myalgias Skin/Breast Reports system reviewed and no additional complaints, except as documented Neuro Denies dizziness, Denies syncope, Denies frequent falls, Reports headache(s) and Denies weakness Psych Reports anxiety and Reports depression Endo Reports fatigue Physical exam (Primary Care) Vital Signs: Last Vital Signs Pulse 78 03/11/24 10:49 BP 124/80 03/11/24 10:49 Pulse Ox 98 03/11/24 10:49 Oxygen Delivery Method Room Air 03/11/24 10:49 BMI result Body Mass Index 40.9 Tobacco/Smoking Status: Tobacco use Status Tobacco use date assessed 03/21/23 03/11/24 10:54 Patient Tobacco Use Status Never used Tobacco 03/11/24 10:54 e-Cigarette/Vaping Use Former Use 03/11/24 10:54 PHQ-9: PHQ-9 Score PHQ-9: Total score 10 03/11/24 10:54 Thrive Assessment: Date of Thrive Assessment Date Thrive assessed 03/11/24 03/11/24 10:54 Const General: cooperative, healthy appearing, comfortable and no acute distress Orientation/consciousness: patient oriented x3 HENMT Head: Yes normocephalic Ears: hearing grossly normal bilaterally General nose exam: Normal external nose present Eyes General: appearance normal, both eyes and all related structures Conjunctivae: conjunctivae normal Neck Neck: Yes full ROM and Yes no lymphadenopathy Chest Other: Tenderness to palpation over left side of the chest and axilla Resp Effort & Inspection: normal respiratory effort Auscultation: clear to auscultation bilaterally, no crackles, no rales, no rhonchi and no wheezes Cardio Rate: regular rate Rhythm: regular rhythm Skin General skin exam: no rashes or lesions noted Neuro General: patient oriented x3 Gait exam (Neuro): Normal gait present Extrem Other: Tenderness to palpation over entirety of left trapezius muscle General: Yes normal to inspection, Yes full ROM and No edema Psych Affect: normal affect Attitude: cooperative Insight: Good insight present (Psych) Judgement: Good judgement present (Psych) Office Procedures Flu Questionnaire Does the patient have a severe egg allergy?: No Immunizations Fluarix Triv [id number] (PF) 45 mcg (15 mcg x 3)/0.5 mL IM syringe Performing Provider: Tatianna Arce PA-C [facility] Documented (not given) by: KEENAN Baldwin on 03/11/24 10:55 Reason Not Given: Patient Refused Coding Level of Care Code Est Pt Level 4 (40184) Diagnoses Asthma J45.909 Generalized anxiety disorder F41.1 Atypical chest pain R07.89 Hypersomnolence G47.10 Dysphagia R13.10 Diarrhea R19.7 Depression F32.A GERD (gastroesophageal reflux disease) K21.9 Assessment & Plan Assessment & Plan (1) Asthma: Code(s): J45.909 - Unspecified asthma, uncomplicated Category: Medical Plan: Asthma currently controlled on present medications. Continue on albuterol as needed. Avoid triggers such as allergies. (2) Generalized anxiety disorder: Code(s): F41.1 - Generalized anxiety disorder Category: Medical Plan: Patient having generalized anxiety disorder place referral to counseling and is declining medication at this time. (3) Atypical chest pain: Code(s): R07.89 - Other chest pain Category: Medical Plan: Patient complaining of atypical chest pain likely costochondritis as patient has pain to palpation on exam and pain is also positional that resolves with heating pack and NSAIDs. Although patient does complain of occasional chest pain on exertion we will order for stress test to rule out cardiac involvement. Reviewed red flag symptoms of chest pain and when to present to ER. (4) Hypersomnolence: Code(s): G47.10 - Hypersomnia, unspecified Category: Medical Plan: Patient complaining of hypersomnolence and occasional shortness of breath in the middle of the night. Ordered for home sleep study for further evaluation. Patient states he snores. (5) Dysphagia: Code(s): R13.10 - Dysphagia, unspecified Category: Medical Plan: Patient complaining of difficulty swallowing and having to take multiple sips of water to get his food down. Ordered for barium swallow further evaluation. In the meantime advised patient to take smaller bites and drink plenty of water. Denies any coughing while eating. (6) Diarrhea: Code(s): R19.7 - Diarrhea, unspecified Category: Medical Plan: Patient complaining of intermittent diarrhea is concerned he may have a parasite ordered for stool ova and parasites. (7) Depression: Code(s): F32.A - Depression, unspecified Category: Medical Plan: Patient's PHQ-9 was positive today declining medication at this time. We did review SSRIs and other antidepressants and patient declines referral placed to counseling. (8) GERD (gastroesophageal reflux disease): Code(s): K21.9 - Gastro-esophageal reflux disease without esophagitis Category: Medical Plan: Avoid trigger foods such as citrus, tomato products, soda, caffeine, spicy foods and other foods that may be irritating to your stomach. Avoid laying flat 3-4 hours after eating and elevate the head of the bed 30 degrees to prevent acid from moving into the esophagus. We will start on omeprazole daily to see if this helps his symptoms and ordered for barium swallow. Plan This note was constructed using voice recognition software. While every effort has been made to ensure accuracy and coordinator of evaluation, still areas may have been included sometimes these areas may affect the content or meeting of the given symptoms. Total time spent caring for the patient today was 30 minutes. This includes time spent before the visit reviewing the chart, time spent during the visit, and time spent after the visit and documentation. Orders: Orders Influenza [id number] Immunization Today Z23 - Encounter for immunization CA stress test Today R07.89 - Other chest pain Complete Blood Count Auto Diff Today G47.10 - Hypersomnia, unspecified, Z00.00 - Encounter for general adult medical examination without abnormal findings TSH reflex Free T4 Today G47.10 - Hypersomnia, unspecified, Z00.00 - Encounter for general adult medical examination without abnormal findings Free T4 (Free Thyroxine) Today G47.10 - Hypersomnia, unspecified, Z00.00 - Encounter for general adult medical examination without abnormal findings Lipid Panel Today E78.00 - Pure hypercholesterolemia, unspecified, G47.10 - Hypersomnia, unspecified Vitamin D 25-OH Total Today G47.10 - Hypersomnia, unspecified, Z00.00 - Encounter for general adult medical examination without abnormal findings RT home sleep study Today G47.10 - Hypersomnia, unspecified Comprehensive Met. Panel Today G47.10 - Hypersomnia, unspecified, Z00.00 - Encounter for general adult medical examination without abnormal findings Hemoglobin A1c Today E11.65 - Type 2 diabetes mellitus with hyperglycemia, G47.10 - Hypersomnia, unspecified Vitamin B12 and Folate Today G47.10 - Hypersomnia, unspecified, Z00.00 - Encounter for general adult medical examination without abnormal findings Ova and Parasite Today R19.7 - Diarrhea, unspecified FL barium swallow Today R13.10 - Dysphagia, unspecified Referrals Counseling Referral F32.A - Depression, unspecified, F41.1 - Generalized anxiety disorder Optometry Referral H54.3 - Unqualified visual loss, both eyes Medications: New omeprazole 20 mg PO DAILY 90 caps 2RF
== END 2024-03-11 12:03 | disposition home or self-care (01) ==
DX: J45.909 Unspecified asthma, uncomplicated (principal); F41.1 Generalized anxiety disorder; R07.89 Other chest pain; G47.10 Hypersomnia, unspecified; R13.10 Dysphagia, unspecified; R19.7 Diarrhea, unspecified; F32.A Depression, unspecified; K21.9 Gastro-esophageal reflux disease without esophagitis; Z23 Encounter for immunization

== ENCOUNTER → 2024-03-11 10:38 | Outpatient (BNVA) | payer OTHER, SELFPAY | DX: Z00.00 Encounter for general adult medical examination without abnormal findings (principal); J45.909 Unspecified asthma, uncomplicated; R07.89 Other chest pain; G47.10 Hypersomnia, unspecified; R13.10 Dysphagia, unspecified; R19.7 Diarrhea, unspecified; F32.A Depression, unspecified; F41.1 Generalized anxiety disorder; K21.9 Gastro-esophageal reflux disease without esophagitis; H54.3 Unqualified visual loss, both eyes; Z28.21 Immunization not carried out because of patient refusal | CPT/HCPCS: 90471; 96127; 99212 ==

== ENCOUNTER 2024-03-13 10:58 | Outpatient (REF) | payer OTHER, SELFPAY ==
[2024-03-13 11:21] LABS: MANUAL DIFF FLAG NO
[2024-03-13 12:06] LABS: Basophils Absolute Auto 0.1 X10*3/uL (0.0-0.2); Basophils Percent Auto 0.8 % (0-2); Eosinophils Absolute Auto 0.6 X10*3/uL (0.0-0.4); Eosinophils Percent Auto 8.1 % (0-4); Hematocrit 43.5 % (42.0-52.0); Hemoglobin 14.7 g/dl (14.0-18.0); Imm Gran Abs Auto 0.12 X10*3/uL (0.00-0.03); Imm Gran Pct Auto 1.5 % (0.0-0.4); Lymphocytes Absolute Auto 1.7 X10*3/uL (1.2-4.9); Lymphocytes Percent Auto 21.9 % (20-40); Mean Corpuscular HGB Conc 33.8 g/dl (31.0-36.0); Mean Corpuscular Hemoglobin 30.3 pg (27.0-33.0); Mean Corpuscular Volume 89.7 fL (80.0-98.0); Mean Platelet Volume 11.2 fL (9.4-12.4); Monocytes Absolute Auto 0.4 X10*3/uL (0.1-1.2); Monocytes Percent Auto 5.7 % (2-11); Neutrophils Absolute Auto 4.8 x10*3/uL (2.0-8.3); Platelet Count 209 X10*3/uL (160-400); Red Blood Count 4.85 X10*6/uL (4.60-5.80); Red Cell Distribution Width 12.4 % (11.0-16.0); White Blood Count 7.8 X10*3/uL (4.8-10.8)
[2024-03-13 12:14] LABS: Estimated Average Glucose 103 mg/dL; Hemoglobin A1c % 5.2 % (<6.0); Total Hemoglobin (HGBA1C) 3817.6873 umol/L
[2024-03-13 12:37] LABS: Alanine Aminotransferase 53 U/L (0-40); Albumin Level 4.2 g/dL (3.5-5.0); Anion Gap 10 (12-20); Aspartate Amino Transferase 34 U/L (5-37); Bilirubin Total 0.6 mg/dL (0.0-1.0); Blood Urea Nitrogen 11 mg/dL (9-16); Calcium 9.2 mg/dL (8.4-10.2); Carbon Dioxide 27 mmol/L (22-29); Chloride 105 mmol/L (96-108); Cholesterol 201 mg/dL (<200); Estimated Glomerular Filt Rate > 60; Glucose Random 106 mg/dL (60-115); HDL Cholesterol 39 mg/dL (>40); LDL Cholesterol Calculated 111 mg/dL (<100); Sodium 138 mmol/L (135-145); Total Protein 7.6 g/dL (6.5-8.0); Triglycerides 257 mg/dL (<150)
[2024-03-13 12:56] LABS: Alkaline Phosphatase 64 U/L (39-117)
[2024-03-13 12:59] LABS: Free T4 (Free Thyroxine) 0.98 ng/dL (0.71-1.85); TSH reflex Free T4 0.55 uIU/mL (0.32-4.0)
[2024-03-13 13:05] LABS: Folate 14.6 ng/mL (> or = 4.0); Vitamin B12 451 pg/mL (200-900)
== END 2024-03-13 10:59 | disposition home or self-care (01) ==
LOC: HO.LAB 10:58
DX: Z00.00 Encounter for general adult medical examination without abnormal findings (principal); G47.10 Hypersomnia, unspecified; E78.00 Pure hypercholesterolemia, unspecified; E11.65 Type 2 diabetes mellitus with hyperglycemia
CPT/HCPCS: 36415; 80053; 80061; 82306; 82607; 82746; 83036; 84439; 84443; 85025

== ENCOUNTER → 2024-03-28 10:34 | Outpatient (REF) | payer OTHER, SELFPAY ==
--- NOTE | 2024-03-28 10:36 | CA_ITS ---
Acquisition Time: 2024-03-28 10:37:03 Total Exercise Time: 00:08:33 Test Indications: CP Medications: ALBUTEROL Protocol: BALJIT Max HR: 148 BPM 77% of Pred: 192 BPM Max BP: 130/70 mmHG Max Work Load: 8.9 METS Exercise Stress Test with exercise 8 mins 33 secs of Baljit Protocol, pt requesting to slow the speed at Stage 3 (down to 2.8 mph and increased incline to 15%), achieving 75% MPHR and 8.9 METs, with unchanged chest discomfort from baseline, requesting to stop the treadmill due to reports of left arm tingling when bending to hold on to the bar, seems to get better when dangling by his side. Without any arrythmias, with normotensive response to exercise. Without EKG changes meeting criteria for ischemia at the achieved workload. In recovery, pt back to baseline. Test reviewed with Dr. Alexander. Referred By: Tatianna Arce Electronically Signed By: Blanco Dunbar
== END ==
LOC: HO.CARD 10:34
DX: R07.89 Other chest pain (principal)
CPT/HCPCS: 93017

== ENCOUNTER → 2024-03-28 10:36 | Outpatient (BNV) | payer OTHER, SELFPAY | DX: R07.9 Chest pain, unspecified (principal); M79.602 Pain in left arm | CPT/HCPCS: 93016; 93018 ==

== ENCOUNTER → 2024-04-21 07:59 | Outpatient (REF) | payer OTHER, SELFPAY | LOC: HO.SL 07:59 | DX: G47.10 Hypersomnia, unspecified (principal) | CPT/HCPCS: 95806 ==

== ENCOUNTER → 2024-04-22 08:08 | Outpatient (BNV) | payer OTHER, SELFPAY | DX: R06.83 Snoring (principal); G47.10 Hypersomnia, unspecified | CPT/HCPCS: 95806 ==

== ENCOUNTER 2024-06-02 08:59 | Outpatient (REF) | payer OTHER, SELFPAY ==
--- NOTE | ~2024-06-02 | FL_ITS ---
EXAMINATION: XR BARIUM SWALLOW CLINICAL INFORMATION: Dysphagia. COMPARISON: None available. TECHNIQUE: Patient was placed upright and thick barium and barium coated saltine crackers coated with barium was administered. Subsequently patient was placed prone and thin barium was administered Position. FINDINGS: On upright views there is normal propagation of thick barium and barium coated solids and cracker's as follows foot from the oral cavity through the pharynx, esophagus and the stomach without obstruction narrowing. No laryngeal penetration or aspiration seen. On placing patient in supine and prone and oral administration of thin barium there is good distention of the esophagus without any intrinsic obstruction, narrowing or filling defect. No extrinsic compression seen. There is no gas or reflux or hiatal hernia. FLUOROSCOPY TIME: 2 minutes 7 seconds DOSE AREA PRODUCT: 206.2 uGy-m2 (microgray-meter squared) FL/FL barium swallow IMPRESSION: Unremarkable barium swallow exam. Electronically signed by: Jamie Hernandez MD 06/02/2024 05:52 PM EDT
--- OUTSIDE RECORDS SUMMARY | 2024-06-02 09:29 | XMS_ITS | Encounter Summary ---
Author Organization [facility] Address [address] [place] [address] Phone Care Team Providers Care Kettle Cleaner Name Role Phone Sherlyn Pino MD Primary Care Provider [phone] Encounter Details Date Type Department Care Team (Late st Contact Info) Description 11/06/2011 Documentation [facility] [place] Family Medicine [address] [place] [address] Family Medicine, Physician [address] [place], [place] [phone] Social History Tobacco Use Types Packs/Day Years Used Date Smoking Tobacco: Never Assessed Sex and Gender Information Value Date Recorded Sex Assigned at Not on file Legal Sex Male 4:42 PM EDT Gender Identity Not on file Sexual Orientation Not on file documented as of this encounter Plan of Treatment Not on file documented as of this encounter Visit Diagnoses Not on filedocumented in this encounter Care Teams Kettle Cleaner Relationship Specialty Start Date End Date Sherlyn Pino MD [address] [place] [phone] PCP - General 10/27/16 09/16/22 documented as of this encounter
--- OUTSIDE RECORDS SUMMARY | 2024-06-02 09:29 | XMS_ITS | Encounter Summary ---
Author Organization [facility] Address [address] [place] [address] Phone Care Team Providers Care Software Sales Representative Name Role Phone Sherlyn Pino MD Primary Care Provider Encounter Details Date Type Department Care Team (Late st Contact Info) Description 11/06/2011 Documentation [facility] [place] Family Medicine [address] [place] [address] Family Medicine, Physician [address] [place], [place] [phone] Social History Tobacco Use Types Packs/Day Years [...] on filedocumented in this encounter Care Teams Software Sales Representative Relationship Specialty Start Date End Date Sherlyn Pino MD [address] [place] [phone] PCP - General 10/27/16 09/16/22 documented as of this encounter
--- OUTSIDE RECORDS SUMMARY | 2024-06-02 09:29 | XMS_ITS | Encounter Summary ---
Author Organization [facility] Address [address] [place] [address] Phone Care Team Providers Care Clinical Admissions Manager Name Role Phone Sherlyn Pino MD Primary Care Provider Encounter Details Date Type Department Care Team (Late st Contact Info) Description 11/17/2010 Documentation [facility] [place] Family Medicine [address] [place] [address] Family Medicine, Physician [address] [place], [place] [phone] Social History Tobacco Use Types Packs/Day Years [...] on filedocumented in this encounter Care Teams Clinical Admissions Manager Relationship Specialty Start Date End Date Sherlyn Pino MD [address] [place] [phone] PCP - General 10/27/16 09/16/22 documented as of this encounter
--- OUTSIDE RECORDS SUMMARY | 2024-06-02 09:29 | XMS_ITS | Encounter Summary ---
Author Organization [facility] Address [address] [place] [address] Phone Care Team Providers Care Lease Operator Name Role Phone Sherlyn Pino MD Primary Care Provider Encounter Details Date Type Department Care Team (Late st Contact Info) Description 02/20/2013 [place] [facility] [place] [address] [place] [address] Family Medicine, Physician [address] [place], [place] [phone] Social History Tobacco Use Types Packs/Day Years [...] on filedocumented in this encounter Care Teams Lease Operator Relationship Specialty Start Date End Date Sherlyn Pino MD [address] [place] [phone] PCP - General 10/27/16 09/16/22 documented as of this encounter
--- OUTSIDE RECORDS SUMMARY | 2024-06-02 09:29 | XMS_ITS | Encounter Summary ---
Author Organization [facility] Address [address] [place] [address] Phone Care Team Providers Care Mat Man Name Role Phone Sherlyn Pino MD Primary Care Provider Encounter Details Date Type Department Care Team (Late st Contact Info) Description 11/06/2011 Documentation [facility] [place] [address] [place] [address] Family Medicine, Physician [address] [place], [place] [phone] Social History Tobacco Use Types Packs/Day Years [...] on filedocumented in this encounter Care Teams Mat Man Relationship Specialty Start Date End Date Sherlyn Pino MD [address] [place] [phone] PCP - General 10/27/16 09/16/22 documented as of this encounter
--- OUTSIDE RECORDS SUMMARY | 2024-06-02 09:29 | XMS_ITS | Encounter Summary ---
Author Organization [facility] Address [address] [place] [phone] Phone Care Team Providers Care Behavioral Health Director Name Role Phone Sherlyn Pino MD Primary Care Provider Encounter Details Date Type Department Care Team (Late st Contact Info) Description 02/20/[address] [facility] [place] [address] [place] [address] Family Medicine, Physician [address] [place], [place] [phone] Social History Tobacco Use Types Packs/Day Years [...] on filedocumented in this encounter Care Teams Behavioral Health Director Relationship Specialty Start Date End Date Sherlyn Pino MD [address] [place] [phone] PCP - General 10/27/16 09/16/22 documented as of this encounter
--- OUTSIDE RECORDS SUMMARY | 2024-06-02 09:29 | XMS_ITS | Encounter Summary ---
Author Organization [facility] Address [address] [place] [phone] Phone Care Team Providers Care Social Media Developer Name Role Phone Sherlyn Pino MD Primary Care Provider Encounter Details Date Type Department Care Team (Late st Contact Info) Description 02/19/2013 Documentation [facility] [place] Medicine [address] [place] [address] Family Medicine, Physician [address] [place], [place] [phone] Social History Tobacco Use Types Packs/Day Years [...] on filedocumented in this encounter Care Teams Social Media Developer Relationship Specialty Start Date End Date Sherlyn Pino MD [address] [place] [phone] PCP - General 10/27/16 09/16/22 documented as of this encounter
--- OUTSIDE RECORDS SUMMARY | 2024-06-02 09:29 | XMS_ITS | Encounter Summary ---
Author Organization [facility] Address [address] [place] [phone] Phone Care Team Providers Care Labeling Strategist Name Role Phone Sherlyn Pino MD Primary Care Provider Encounter Details Date Type Department Care Team (Late st Contact Info) Description 02/19/2013 [place] [facility] [place] [address] [place] [address] Family Medicine, Physician [address] [place], [place] [phone] Social History Tobacco Use Types Packs/Day Years [...] on filedocumented in this encounter Care Teams Labeling Strategist Relationship Specialty Start Date End Date Sherlyn Pino MD [address] [place] [phone] PCP - General 10/27/16 09/16/22 documented as of this encounter
--- OUTSIDE RECORDS SUMMARY | 2024-06-02 09:29 | XMS_ITS | Encounter Summary ---
Author Organization [facility] Address [address] [place] [address] Phone Care Team Providers Care Grader Patrol Name Role Phone Sherlyn Pino MD Primary Care Provider Encounter Details Date Type Department Care Team (Late st Contact Info) Description 11/02/2016 Conversion Encounter [facility] [place] [address] [place] [address] Social History Tobacco Use Types Packs/Day Years Used Date Smoking Tobacco: Never Comments:Never smoker Sex and Gender Information Value Date Recorded Sex Assigned at Not on file Legal Sex Male 4:42 PM EDT Gender Identity Not on file Sexual Orientation Not on file documented as of this encounter Plan of Treatment Not on file documented as of this encounter Visit Diagnoses Not on filedocumented in this encounter Care Teams Grader Patrol Relationship Specialty Start Date End Date Sherlyn Pino MD [address] [place] [address] PCP - General 10/27/16 09/16/22 documented as of this encounter
--- OUTSIDE RECORDS SUMMARY | 2024-06-02 09:29 | XMS_ITS | Encounter Summary ---
Author Organization [facility] Address [address] [place] [phone] Phone Care Team Providers Care Custodian Athletic Equipment Name Role Phone Sherlyn Pino MD Primary Care Provider [phone] Encounter Details Date Type Department Care Team (Late st Contact Info) Description 11/06/2011 Documentation [facility] [place] Family Medicine [address] [place] [address] Family Medicine, Physician [address] [place], [place] [phone] Social History Tobacco Use Types Packs/Day Years [...] on filedocumented in this encounter Care Teams Custodian Athletic Equipment Relationship Specialty Start Date End Date Sherlyn Pino MD [address] [place] [id number] PCP - General 10/27/16 09/16/22 documented as of this encounter
--- OUTSIDE RECORDS SUMMARY | 2024-06-02 09:29 | XMS_ITS | Clinical Summary ---
Author Organization [facility] Address [address] [place] [address] Phone Care Team Providers Care Corrections Specialist Name Role Phone Unavailable Primary Care Provider Unavailabl e Immunizations Immunization Administration Dates Next Due DTaP 5 07/19/1999, 6,01/04/1996, 996 H1N1 02/09/2009 HPV, Quadrivalent 02/18/2013,01/22/2012,11/03/19 12 Hep B, ped/adol 02/24/1996,1995,1995 Hib (PRP-T) 08/04/1996, 6,01/04/1996, 996 IPV 07/19/1999, 6,01/04/1996, 996 Influenza Split 11/16/2010,11/17/2009 Influenza, injectable, trivalent 009,04/17/2008,05/28/2007, 004 Influenza, intranasal, quadrivalent 02/18/2013 MMR 07/19/1999,08/04/1996 Meningococcal Conj (Menactra) MCV4P 05/28/2007 Tdap 05/28/2007 Varicella 05/28/2007,07/21/1998 Family History Relation Name Status Comments Father Alive Father: High Bl ood Pressure Type 2 diabetes Mother Mother: Asthma, Elevated glucose, Hyperlipidemia, Diabetes mellitus Other Family history of Hyperlipidemia Sister 1 Alive Sister: Alive a nd well, Alive and well, Alive and well Sister 2 Alive Sister: Alive a nd well, Alive and well, Alive and well Sister 3 Alive Sister: Alive a nd well, Alive and well, Alive and well Social History Tobacco Use Types Packs/Day Years Used Date Smoking Tobacco: Never Comments:Never smoker Sex and Gender Information Value Date Recorded Sex Assigned at Not on file Legal Sex Male 4:42 PM EDT Gender Identity Not on file Sexual Orientation Not on file Last Filed Vital Signs Vital Sign Reading Time Taken Comments Blood Pressure 122/79 02/18/2013 12:00 AM EST Pulse 74 02/18/2013 12:00 AM EST Temperature 37.6 ??C (99.7 ??F) 12/02/2013 12:00 AM E DT Respiratory Rate - - Oxygen Saturation - - Inhaled Oxygen Concentration - - Weight 103 kg (228 lb) 12/02/2013 12:00 AM EDT Height 169.5 cm (5' 6.75 ) 12/02/2013 12:00 AM E DT Body Mass Index 35.98 12/02/2013 12:00 AM EDT Plan of Treatment Health Maintenance Due Date Last Done Comments DTaP,Tdap,and Td Vaccines (6 - Td or Tdap) 05/27/2017 05/28/2007, 07/19/1999, 03/05/1996, Additional history exists Influenza Vaccines (#1) 2023 02/19/20 13, 11/16/2010, 11/17/2009, Additional history exists COVID-19 Vaccine ( season) 2023 Hepatitis B Vaccines Completed 02/24/1996, 1995, 1995 HIB Vaccines Completed 08/04/1996, 02/16, 01/04/1996, Additional history exists IPV Vaccines Completed 07/19/1999, 02/16, 01/04/1996, Additional history exists MMR Vaccines Completed 07/19/1999, 08/04/1996 Meningococcal Vaccine Aged Out 05/28/2007 No lashaun marquita eligible based on patient's age to complete this topic Varicella Vaccines Completed 05/28/2007, 07/21/1998 HPV Vaccines Completed 02/18/2013, 1107/2011, 11/03/2011 Hepatitis A Vaccines Aged Out No long er eligible based on patient's age to complete this topic Men B Vaccine Aged Out No longer elig ible based on patient's age to complete this topic Pneumococcal Vaccine Aged Out No long er eligible based on patient's age to complete this topic
--- OUTSIDE RECORDS SUMMARY | 2024-06-02 09:29 | XMS_ITS | Encounter Summary ---
Author Organization [facility] Address [address] [place] [address] Phone Care Team Providers Care Mucking Machine Operator Name Role Phone Sherlyn Pino MD Primary Care Provider Encounter Details Date Type Department Care Team (Late st Contact Info) Description 11/17/2010 Documentation [facility] [place] [address] [place] [address] Family Medicine, Physician [address] [place], [place] [phone] Social History Tobacco Use Types Packs/Day Years [...] on filedocumented in this encounter Care Teams Mucking Machine Operator Relationship Specialty Start Date End Date Sherlyn Pino MD [address] [place] [phone] PCP - General 10/27/16 09/16/22 documented as of this encounter
--- OUTSIDE RECORDS SUMMARY | 2024-06-02 09:29 | XMS_ITS | Encounter Summary ---
Author Organization [facility] Address [address] [place] [phone] Phone Care Team Providers Care Chemical Dependency Attendant Name Role Phone Sherlyn Pino MD Primary Care Provider Encounter Details Date Type Department Care Team (Late st Contact Info) Description 11/17/2010 Documentation [facility] [place] Family Medicine [address] [place] [address] Family Medicine, Physician [address] [place], [place] [phone] Social History Tobacco Use Types Packs/Day Years [...] on filedocumented in this encounter Care Teams Chemical Dependency Attendant Relationship Specialty Start Date End Date Sherlyn Pino MD [address] [place] [phone] PCP - General 10/27/16 09/16/22 documented as of this encounter
--- OUTSIDE RECORDS SUMMARY | 2024-06-02 09:29 | XMS_ITS | Encounter Summary ---
Author Organization [facility] Address [address] [place] [address] Phone Care Team Providers Care Top And Seat Cover Fitter Name Role Phone Sherlyn Pino MD Primary Care Provider Encounter Details Date Type Department Care Team (Late st Contact Info) Description 11/17/2010 Documentation [facility] [place] [address] [place] [address] Family Medicine, Physician [address] [place], [place] [phone] Social History Tobacco Use Types Packs/Day Years [...] on filedocumented in this encounter Care Teams Top And Seat Cover Fitter Relationship Specialty Start Date End Date Sherlyn Pino MD [address] [place] [phone] PCP - General 10/27/16 09/16/22 documented as of this encounter
--- OUTSIDE RECORDS SUMMARY | 2024-06-02 09:30 | XMS_ITS | Encounter Summary ---
Author Organization [facility] Address [address] [place] [address] Phone Care Team Providers Care Masonry Installer Name Role Phone Sherlyn Pino MD Primary Care Provider Encounter Details Date Type Department Care Team (Late st Contact Info) Description 01/23/2012 Documentation [facility] [place] [address] [place] [address] Family Medicine, Physician [address] [place], [place] [phone] Social History Tobacco Use Types Packs/Day Years [...] on filedocumented in this encounter Care Teams Masonry Installer Relationship Specialty Start Date End Date Sherlyn Pino MD [address] [place] [phone] PCP - General 10/27/16 09/16/22 documented as of this encounter
== END 2024-06-02 09:00 | disposition home or self-care (01) ==
LOC: HO.XRAY 08:59
DX: R13.10 Dysphagia, unspecified (principal)
CPT/HCPCS: 74220

== ENCOUNTER → 2024-06-02 09:00 | Outpatient (BNV) | payer OTHER, SELFPAY | PROVIDERS: Visit Provider Radiology Diagnostic Radiology | DX: R13.10 Dysphagia, unspecified (principal) | CPT/HCPCS: 74220 ==

== ENCOUNTER 2024-06-09 10:34 | Outpatient (AMB) | payer OTHER, SELFPAY ==
--- NOTE | 2024-06-09 10:42 | A.OFFPC_ITS ---
Vital Signs 06/09/24 10:43 Height 5 ft 7 in Weight 262 lb 8 oz BMI 41.1 BP 100/62 Blood Pressure Location Lt brachial Position Sitting Pulse 67 Pulse Source Pulse Oximeter Temp 97.1 F Temp Source Temporal Artery Scan Pulse Oximetry (%) 97 Oxygen Delivery Method Room Air Intake Visit Reasons: annual exam - Intake Note: Patient is here today for a physical. Relationship Consultant Required: No Glue Bone Crusher: Not Required per policy Accompanied by: Self / Same As Patient Allergies No Known Allergies Allergy (Verified 06/09/24 10:45) Medication List - Last Reconciled 06/09/24 by Tatianna Arce PA-C albuterol sulfate 90 mcg/actuation (Ventolin HFA) 2 puffs inhalation Q6H PRN cholecalciferol (vitamin D3) 25 mcg PO DAILY ibuprofen 800 mg PO Q8H PRN omeprazole 20 mg PO DAILY Tobacco use date assessed: 06/09/24 Dental Screening Dental Screen Date: 06/09/24 Did you have a dental visit in the last 12 months?: No Did you have a dental problem in the last 6 months where you did not have access to dental care?: No Was dental information given to patient?: No HPI annual exam - HPI Details 28-year-old male with past medical histo ry of plantar fasciitis, generalized anxiety disorder and asthma last seen 02/2024 coming in for annual exam. Patient completed barium swallow 05/2024 which was unremarkable.?Also completed sleep study 04/2024 normal sleep study.?Patient had normal stress test 03/2024. The patient is a 28-year-old male presenting for his annual wellness examination and evaluation of multiple symptoms. He experienced difficulty swallowing for which a barium swallow test was performed and returned normal results. Adjustments in eating habits such as taking smaller bites and increasing water intake have offered partial relief. He has a history of Gastroesophageal Reflux Disease and reports inconsistent adherence to omeprazole. He noted improvement in sleep onset, previously challenging, now typically falling asleep by 1:00 AM. He experiences daily chest pain, noted to be possibly muscular, exacerbated by work-related lifting. Ice temporarily alleviates the symptoms. The patient reports post-surgical foot pain particularly noticeable after prolonged activity. He has possible soy allergies, experiencing itchiness in the throat after ingestion of soy products. There is a pattern of stomach pain and diarrhea subsequent to meals, suggestive of Irritable Bowel Syndrome, interrupting his work routines. 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 1. Little interest or pleasure in doing things: several days 2. Feeling down, depressed, or hopeless: not at all 3. Trouble falling or staying asleep, or sleeping too much: not at all 4. Feeling tired or having little energy: not at all 5. Poor appetite or overeating: not at all 6. Feeling bad about yourself - or that you are a failure or have let yourself or your family down: not at all 7. Trouble concentrating on things, such as reading the newspaper or watching television: not at all 8. Moving or speaking so slowly that other people could have noticed. Or the opposite - being so fidgety or restless that you have been moving around a lot more than usual: not at all 9. Thoughts that you would be better off or of hurting yourself in some way: not at all Total score: 1 Depression Screening Interpretation: Positive Depression Screening Done: Yes Source: Developed by Drs. Salazar Marroquin, Sonia Guajardo, Mika Curran and colleagues, with an educational yao from [employer]. Thrive Questionnaire Date Thrive assessed: 06/02/24 I am a: Patient What is your living situation today?: I have a steady place to live Within the past 12 months, did the food you bought not last and you didn't have the money to get more?: Never true Within the past 12 months, did you worry whether your food would run out before you got money to buy more?: Never true Do you have trouble paying for medicines?: No Do you have trouble getting transportation to medical appointments?: No Do you have trouble paying your heating and electricity bill?: No Do you have trouble taking care of your child, family member or friend?: No Do you have trouble with day-to-day activities such as bathing, preparing meals, shopping, managing finances, etc.?: No Are you currently unemployed and looking for a job?: No Are you interested in more education?: No Please select the resources that you would like help with: None Currently or been in a relationship where the following occur: No concerns reported THRIVE Score: 0 AUDIT C Alcohol Use Questionnaire (AUDIT-C) 1. How often do you have a drink containing alcohol?: Monthly or less 2. How many drinks containing alcohol do you have on a typical day when you are drinking?: 3 or 4 3. How often do you have six or more drinks on one occasion?: Less than monthly Total Score: 3 GALA-7 AMB Questionnaire GALA-7 Date GALA - 7 assessed: 06/09/24 Feeling nervous, anxious, or on edge: 0 = Not at all Not being able to stop or control worryin = Not at all Worrying too much about different things: 0 = Not at all Trouble relaxin = Several days Being so restless that it is hard to sit still: 0 = Not at all Becoming easily annoyed or irritable: 1 = Several days Feeling afraid as if something awful might happen: 0 = Not at all Total GALA-7 score (0-4 normal; 5-9 mild; 10-14 moderate; 15-21 severe): 2 Source: Developed by Drs. Salazar Marroquin, Sonia Guajardo, Mika Curran and colleagues, with an educational yao from [employer]. Review of Systems Const Denies body aches, Denies fatigue, Denies fever(s), Denies frequent falls, Denies headache(s) and Denies weakness Eyes Reports no additional complaints, Denies change in vision and Reports requires corrective lenses ENT Reports dysphagia, Denies dizziness, Denies facial pain, Denies headache(s), Denies nasal congestion and Denies odynophagia Card Details: chest pain with pulling and lifting Denies chest pain, Denies syncope, Denies irregular heart rhythm, Denies leg edema, Denies lightheadedness and Denies dyspnea Resp Denies cough and Denies dyspnea GI Reports abdominal pain, Denies constipation, Reports dysphagia, Reports dyspepsia, Reports heartburn, Reports diarrhea, Denies nausea, Denies odynophagia and Denies vomiting Denies dysuria, Denies urinary frequency, Denies urinary hesitancy and Denies urinary urgency Musc Denies back pain and Denies myalgias Skin/Breast Reports system reviewed and no additional complaints, except as documented Neuro Denies dizziness, Denies syncope, Denies frequent falls, Denies headache(s) and Denies weakness Psych Reports no additional complaints Endo Denies fatigue Physical exam (Primary Care) Vital Signs: Last Vital Signs Temp 97.1 F 06/09/24 10:43 Pulse 67 06/09/24 10:43 BP 100/62 06/09/24 10:43 Pulse Ox 97 06/09/24 10:43 Oxygen Delivery Method Room Air 06/09/24 10:43 BMI result Body Mass Index 41.1 Tobacco/Smoking Status: Tobacco use Status Tobacco use date assessed 06/09/24 06/09/24 10:44 Patient Tobacco Use Status Never used Tobacco 06/09/24 10:44 e-Cigarette/Vaping Use Former Use 06/09/24 10:44 PHQ-9: PHQ-9 Score PHQ-9: Total score 1 06/09/24 11:25 Depression Screening Interpretation: Positive Thrive Assessment: Date of Thrive Assessment Date Thrive assessed 06/02/24 06/09/24 10:44 Currently or been in a relationship where the following occur: No concerns reported Const General: cooperative, healthy appearing, comfortable and no acute distress Orientation/consciousness: patient oriented x3 HENMT Head: Yes normocephalic Ears: hearing grossly normal bilaterally, external ears normal, TM's normal bilaterally and EAC's normal General nose exam: Normal external nose present Face and sinus: Yes normal facial exam and Yes sinuses nontender Mouth: Normal oral and palatal mucosa present and tongue normal Throat: Yes posterior oropharynx normal Eyes General: appearance normal, both eyes and all related structures Conjunctivae: conjunctivae normal Pupils: Equal, round and reactive pupils present EOM: EOMs intact bilaterally and No Nystagmus present Neck Neck: Yes normal visual inspection, Yes full ROM and Yes no lymphadenopathy Chest Chest palpation & inspection: normal inspection of the chest Resp Effort & Inspection: normal respiratory effort Auscultation: clear to auscultation bilaterally, no crackles, no rales, no rhonchi, no wheezes and breath sounds present Cardio Rate: regular rate Rhythm: regular rhythm Peripheral pulses: radial pulses present and dorsalis pedis present GI Inspection: Yes normal to inspection and No Abdominal wall edema Palpation (GI): Soft to palpation, not firm and nontender Auscultation: normal bowel sounds Rectal Exam - Male: Yes deferred General: Yes no CVA tenderness Back/Spine/Pelvis Back: no CVA tenderness Skin General skin exam: no rashes or lesions noted Neuro General: patient oriented x3 Cranial nerves: Yes Equal, round and reactive pupils present, Yes Midline tongue present, Yes Ability to bilaterally elevate shoulders present and No Nystagmus present Gait exam (Neuro): Normal gait present Extrem General: Yes normal to inspection, Yes full ROM, No no pedal edema and No edema Psych Speech and movement: Normal speech and movement present Affect: normal affect Insight: Good insight present (Psych) Judgement: Good judgement present (Psych) Immunizations Boostrix Tdap 2.5 Lf unit-8 mcg-5 Lf/0.5 mL intramuscular syringe Performing Provider: Tatianna Arce PA-C [facility] [place] [facility] Administered by: Inocencia Aguilar LPN on 06/09/24 11:25 Dose Route Admin Location Dispensed Lot Number Expiration Date [facility] Petrophysicist 0.5 mL IM Right Deltoid 0.5 mL [id number] 08/30/26 [id number] [employer] VIS Given Date VIS Provided VIS Publication Date 06/09/24 Single Vaccine 20 Eligibility Eligibility Date Funding Source Not [facility] Eligible 06/09/24 Private Coding Level of Care Code Est Pt Level 3 (00412) Est Pt Prev Care 18-39y(12539) Diagnoses GERD (gastroesophageal reflux disease) K21.9 Elevated LFTs R79.89 Dysphagia R13.10 Depression F32.A Hypersomnolence G47.10 Atypical chest pain R07.89 Physical exam, annual Z00.00 Generalized anxiety disorder F41.1 Asthma J45.909 Multiple food allergies Z91.018 Right foot pain M79.671 Diarrhea R19.7 Assessment & Plan Assessment & Plan (1) GERD (gastroesophageal reflux disease): Code(s): K21.9 - Gastro-esophageal reflux disease without esophagitis Category: Medical Plan: Avoid trigger foods such as citrus, tomato products, soda, caffeine, spicy foods and other foods that may be irritating to your stomach. Avoid laying flat 3-4 hours after eating and elevate the head of the bed 30 degrees to prevent acid from moving into the esophagus. Continue on omeprazole (2) Elevated LFTs: Code(s): R79.89 - Other specified abnormal findings of blood chemistry Category: Medical Plan: Healthy diet and regular exercise is encouraged. Plan to repeat labs patient was reminded about blood work persistently elevated recommend abdominal ultrasound (3) Dysphagia: Code(s): R13.10 - Dysphagia, unspecified Category: Medical Plan: Recent barium swallow normal. Advised patient to take smaller bites and drink plenty of water with eating. Can consider referral to GI if symptoms worsen or persist. Patient is in agreement with plan (4) Depression: Code(s): F32.A - Depression, unspecified Category: Medical Plan: Referral placed to counseling at last visit. Declining medication at this time. (5) Hypersomnolence: Code(s): G47.10 - Hypersomnia, unspecified Category: Medical Plan: Recent sleep study negative for obstructive sleep apnea. Record about weight loss has positional therapy. Patient also mentions having difficulty falling asleep at night plan to start on hydroxyzine 25 mg as needed for sleep and follow up in 3 months. (6) Atypical chest pain: Code(s): R07.89 - Other chest pain Category: Medical Plan: Patient complaining of atypical chest pain likely costochondritis as patient has pain to palpation on exam and pain is also positional that resolves with heating pack and NSAIDs. Recent stress test negative for acute abnormality. Plan to continue monitoring and can consider referral to Cardiology if symptoms persist (7) Physical exam, annual: Code(s): Z00.00 - Encounter for general adult medical examination without abnormal findings Category: Medical Plan: Patient is up-to-date on all recommended routine screenings and vaccinations for his age. Blood work is up-to-date and has been reviewed today. Plan to follow up in 3 months to review dietary modifications. Healthy diet and regular exercise is encouraged. (8) Generalized anxiety disorder: Code(s): F41.1 - Generalized anxiety disorder Category: Medical Plan: Patient having generalized anxiety disorder place referral to counseling and is declining medication at this time. (9) Asthma: Code(s): J45.909 - Unspecified asthma, uncomplicated Category: Medical Plan: Asthma currently controlled on present medications. Continue on albuterol as needed. Avoid triggers such as allergies. (10) Multiple food allergies: Code(s): Z91.018 - Allergy to other foods Category: Medical Plan: Referral placed to round kiln drawer at this time. (11) Right foot pain: Code(s): M79.671 - Pain in right foot Category: Medical Plan: A podiatry referral was made for custom insoles due to foot pain and consideration for an x-ray of the hardware was included. (12) Diarrhea: Code(s): R19.7 - Diarrhea, unspecified Category: Medical Plan: A FODMAP diet and fiber supplement were recommended for IBS symptoms. Plan to follow up in 3 months and if symptoms do not improve can consider referral to GI. Plan This note was constructed using voice recognition software. While every effort has been made to ensure accuracy and relay telegrapher, still areas may have been included sometimes these areas may affect the content or meeting of the given symptoms. Total time spent caring for the patient today was 30 minutes. This includes time spent before the visit reviewing the chart, time spent during the visit, and time spent after the visit and documentation. Patient was informed and verbally consented to the use of an ambient scribe for clinic note documentation during this visit. Orders: Orders XR foot RT 2V Today M79.671 - Pain in right foot TDaP Immunization Today Z23 - Encounter for immunization Referrals Podiatry Referral M72.2 - Plantar fascial fibromatosis, M79.671 - Pain in right foot Allergy & Immunology Referral Z91.018 - Allergy to other foods Medications: New hydroxyzine HCl 25 mg PO BEDTIME 30 tabs 1RF
[2024-06-09 10:43] VITALS: BP 100/62; PULSE 67; TEMP 36.2; O2SAT 97; BMI 41.1
== END 2024-06-09 11:30 | disposition home or self-care (01) ==
LOC: HO.HMCH 10:35
DX: Z00.00 Encounter for general adult medical examination without abnormal findings (principal); K21.9 Gastro-esophageal reflux disease without esophagitis; R79.89 Other specified abnormal findings of blood chemistry; R13.10 Dysphagia, unspecified; F32.A Depression, unspecified; G47.10 Hypersomnia, unspecified; R07.89 Other chest pain; F41.1 Generalized anxiety disorder; J45.909 Unspecified asthma, uncomplicated; Z91.018 Allergy to other foods; M79.671 Pain in right foot; Z23 Encounter for immunization

== ENCOUNTER → 2024-06-09 10:34 | Outpatient (BNVA) | payer OTHER, SELFPAY | DX: Z00.00 Encounter for general adult medical examination without abnormal findings (principal); Z23 Encounter for immunization; K21.9 Gastro-esophageal reflux disease without esophagitis; R79.89 Other specified abnormal findings of blood chemistry; R13.10 Dysphagia, unspecified; F41.1 Generalized anxiety disorder; F32.A Depression, unspecified; G47.10 Hypersomnia, unspecified; R07.89 Other chest pain; J45.909 Unspecified asthma, uncomplicated; M79.671 Pain in right foot; R19.7 Diarrhea, unspecified; Z91.018 Allergy to other foods | CPT/HCPCS: 90471; 90715; 99212; 99395 ==

== ENCOUNTER 2024-09-09 10:20 | Outpatient (AMB) | payer OTHER, SELFPAY ==
--- NOTE | 2024-09-09 10:28 | MHC.PC.OV ---
Vital Signs 09/09/24 10:29 Height 5 ft 7 in Weight 257 lb 8 oz BMI 40.3 BP 130/60 Blood Pressure Location Lt brachial Position Sitting Pulse 74 Pulse Source Pulse Oximeter Temp 97.1 F Temp Source Temporal Artery Scan Pulse Oximetry (%) 97 Oxygen Delivery Method Room Air Intake Visit Reasons: f/u IBS Intake Note: Patient is here to follow up on IBS. Weatherization Technician Required: No Health Spa Manager: Not Required per policy Accompanied by: Self / Same As Patient Allergies No Known Allergies Allergy (Verified 09/09/24 11:03) Medication List - Last Reconciled 09/09/24 by Tatianna Arce PA-C albuterol sulfate 90 mcg/actuation (Ventolin HFA) 2 puffs inhalation Q6H PRN cholecalciferol (vitamin D3) 25 mcg PO DAILY hydroxyzine HCl 25 mg PO BEDTIME ibuprofen 800 mg PO Q8H PRN omeprazole 20 mg PO DAILY Tobacco use date assessed: 09/09/24 Dental Screening Dental Screen Date: 06/09/24 HPI f/u IBS HPI Details 29-year-old male with past medical history of plantar fasciitis, generalized anxiety disorder and asthma last seen 05/2024 coming in for follow up. Presenting for follow-up on multiple chronic conditions and medication management. Reports difficulty waking up after taking hydroxyzine, causing grogginess. Medication was lost after moving, and he has not taken it recently. GERD is Managed by reducing meal frequency and increasing protein and fiber intake, leading to symptom improvement. Dietary changes have helped manage symptoms, though increased mucus in stool is noted daily. Previous tests showed elevation, possibly due to alcohol or medication use. Retesting is planned. 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 Current occupational exposures/hazards: Yes Cognitive needs: No Hearing needs: No Vision needs: Yes (Glasses) Questionnaire Thrive Questionnaire Date Thrive assessed: 06/02/24 I am a: Patient What is your living situation today?: I have a steady place to live Within the past 12 months, did the food you bought not last and you didn't have the money to get more?: Never true Within the past 12 months, did you worry whether your food would run out before you got money to buy more?: Never true Do you have trouble paying for medicines?: No Do you have trouble getting transportation to medical appointments?: No Do you have trouble paying your heating and electricity bill?: No Do you have trouble taking care of your child, family member or friend?: No Do you have trouble with day-to-day activities such as bathing, preparing meals, shopping, managing finances, etc.?: No Are you currently unemployed and looking for a job?: No Are you interested in more education?: No Please select the resources that you would like help with: None Currently or been in a relationship where the following occur: No concerns reported THRIVE Score: 0 GALA-7 AMB Questionnaire GALA-7 Date GALA - 7 assessed: 06/09/24 Source: Developed by Drs. Salazar Marroquin, Sonia Guajardo, Mika Curran and colleagues, with an educational yao from [employer]. Review of Systems Const Denies body aches, Denies chills, Denies fever(s), Denies headache(s) and Denies poor appetite Eyes Reports no additional complaints ENT Denies dizziness, Denies headache(s) and Denies odynophagia Card Denies chest pain, Denies syncope, Denies edema, Denies irregular heart rhythm, Denies lightheadedness and Denies dyspnea Resp Denies cough and Denies dyspnea GI Denies abdominal pain, Denies constipation, Denies diarrhea, Reports loose stools, Denies nausea, Denies odynophagia and Denies vomiting Reports no additional complaints Musc Reports no additional complaints and Denies abnormal gait Skin/Breast Reports system reviewed and no additional complaints, except as documented Neuro Denies abnormal gait, Denies dizziness, Denies syncope and Denies headache(s) Psych Reports no additional complaints Physical exam (Primary Care) Vital Signs: Last Vital Signs Temp 97.1 F 09/09/24 10:29 Pulse 74 09/09/24 10:29 BP 130/60 09/09/24 10:29 Pulse Ox 97 09/09/24 10:29 Oxygen Delivery Method Room Air 09/09/24 10:29 BMI result Body Mass Index 40.3 Tobacco/Smoking Status: Tobacco use Status Tobacco use date assessed 09/09/24 09/09/24 10:33 Patient Tobacco Use Status Never used Tobacco 09/09/24 10:33 e-Cigarette/Vaping Use Former Use 09/09/24 10:33 Thrive Assessment: Date of Thrive Assessment Date Thrive assessed 06/02/24 09/09/24 10:33 Currently or been in a relationship where the following occur: No concerns reported Const General: cooperative, healthy appearing, comfortable and no acute distress Orientation/consciousness: patient oriented x3 HENMT Head: Yes normocephalic Ears: hearing grossly normal bilaterally General nose exam: Normal external nose present Eyes General: appearance normal, both eyes and all related structures Conjunctivae: conjunctivae normal Neck Neck: Yes full ROM and Yes no lymphadenopathy Resp Effort & Inspection: normal respiratory effort Auscultation: clear to auscultation bilaterally, no crackles, no rales, no rhonchi and no wheezes Cardio Rate: regular rate Rhythm: regular rhythm Skin General skin exam: no rashes or lesions noted Neuro General: patient oriented x3 Gait exam (Neuro): Normal gait present Extrem General: Yes normal to inspection, Yes full ROM and No edema Psych Affect: normal affect Attitude: cooperative Insight: Good insight present (Psych) Judgement: Good judgement present (Psych) Coding Level of Care Code Est Pt Level 3 (14581) Diagnoses GERD (gastroesophageal reflux disease) K21.9 Elevated LFTs R79.89 Hypersomnolence G47.10 Mild intermittent asthma, unspecified whether complicated J45.20 Asthma complication type: unspecified Asthma persistence: intermittent Asthma severity: mild Diarrhea, unspecified type R19.7 Diarrhea type: unspecified type Hypertriglyceridemia E78.1 Assessment & Plan Assessment & Plan (1) GERD (gastroesophageal reflux disease): Code(s): K21.9 - Gastro-esophageal reflux disease without esophagitis Category: Medical Plan: Avoid trigger foods such as citrus, tomato products, soda, caffeine, spicy foods and other foods that may be irritating to your stomach. Avoid laying flat 3-4 hours after eating and elevate the head of the bed 30 degrees to prevent acid from moving into the esophagus. Continue on omeprazole. He has been eating smaller meals which has been helping. (2) Elevated LFTs: Code(s): R79.89 - Other specified abnormal findings of blood chemistry Category: Medical Plan: Healthy diet and regular exercise is encouraged. Plan to repeat labs patient was reminded about blood work persistently elevated recommend abdominal ultrasound (3) Hypersomnolence: Code(s): G47.10 - Hypersomnia, unspecified Category: Medical Plan: Patient's sleep study was negative previously. the hydroxyzine 25 mg has been causing some excessive drowsiness in the mornings. Plan to decrease to 10 mg at this time (4) Asthma: Code(s): J45.909 - Unspecified asthma, uncomplicated Category: Medical Qualifiers: Asthma complication type: unspecified Asthma persistence: intermittent Asthma severity: mild Qualified Code(s): J45.20 - Mild intermittent asthma, uncomplicated Plan: Asthma currently controlled on present medications. Continue on albuterol as needed. Avoid triggers such as allergies. (5) Diarrhea: Code(s): R19.7 - Diarrhea, unspecified Category: Medical Qualifiers: Diarrhea type: unspecified type Qualified Code(s): R19.7 - Diarrhea, unspecified Plan: A FODMAP diet and fiber supplement were recommended for IBS symptoms. Symptoms have been improving with dietary modification. He does however continue to have mucus in the stools and is requesting a referral to GI which has been placed today. (6) Hypertriglyceridemia: Code(s): E78.1 - Pure hyperglyceridemia Category: Medical Plan: Triglycerides elevated on last labs. Plan to order repeat blood work Plan This note was constructed using voice recognition software. While every effort has been made to ensure accuracy and supervisor hand silvering, still areas may have been included sometimes these areas may affect the content or meeting of the given symptoms. Total time spent caring for the patient today was 30 minutes. This includes time spent before the visit reviewing the chart, time spent during the visit, and time spent after the visit and documentation. Patient was informed and verbally consented to the use of an ambient scribe for clinic note documentation during this visit. Orders: Orders Lipid Panel Today E78.00 - Pure hypercholesterolemia, unspecified, E78.1 - Pure hyperglyceridemia Referrals Gastroenterology Referral K90.9 - Intestinal malabsorption, unspecified Medications: New hydroxyzine HCl 10 mg PO BEDTIME 30 tabs 2RF Refilled albuterol sulfate 90 mcg/actuation (Ventolin HFA) 2 puffs inhalation Q6H PRN 6.7 grams 0RF shortness of breath or wheezing J45.909 - Unspecified asthma, uncomplicated
[2024-09-09 10:29] VITALS: BP 130/60; PULSE 74; TEMP 36.2; O2SAT 97; BMI 40.3
--- OUTSIDE RECORDS SUMMARY | 2024-09-09 11:29 | XMS_ITS | Encounter Summary ---
Author Organization [facility] Address [address] [place] [id number] Phone Care Team Providers Care Circular Tank Cooper Name Role Phone Sherlyn Pino MD Primary Care Provider Encounter Details Date Type Department Care Team (Late st Contact Info) Description 11/17/2010 Documentation [facility] Family Medicine [address] [place] [address] Family Medicine, Physician [address] [place], [place] [id number] Social History Tobacco Use Types Packs/Day Years [...] on filedocumented in this encounter Care Teams Circular Tank Cooper Relationship Specialty Start Date End Date Sherlyn Pino MD [address] [place] [id number] PCP - General 10/27/16 09/16/22 documented as of this encounter
== END 2024-09-09 11:25 | disposition home or self-care (01) ==
LOC: HO.HMCH 10:21
DX: K21.9 Gastro-esophageal reflux disease without esophagitis (principal); R79.89 Other specified abnormal findings of blood chemistry; G47.10 Hypersomnia, unspecified; J45.20 Mild intermittent asthma, uncomplicated; R19.7 Diarrhea, unspecified; E78.1 Pure hyperglyceridemia

== ENCOUNTER → 2024-09-09 10:20 | Outpatient (BNVA) | payer OTHER, SELFPAY | DX: K21.9 Gastro-esophageal reflux disease without esophagitis (principal); F41.1 Generalized anxiety disorder; J45.909 Unspecified asthma, uncomplicated; R79.89 Other specified abnormal findings of blood chemistry; G47.10 Hypersomnia, unspecified; J45.20 Mild intermittent asthma, uncomplicated; E78.1 Pure hyperglyceridemia; K58.0 Irritable bowel syndrome with diarrhea | CPT/HCPCS: 99212 ==

== ENCOUNTER 2024-10-11 08:18 | Outpatient (REF) | payer OTHER, SELFPAY ==
--- OUTSIDE RECORDS SUMMARY | 2024-10-11 08:21 | XMS_ITS | Encounter Summary ---
Author Organization [facility] Address [address] [place] [phone] Phone Care Team Providers Care Receivable Executive Name Role Phone Sherlyn Pino MD Primary Care Provider Encounter Details Date Type Department Care Team (Late st Contact Info) Description 11/17/2010 Documentation [facility] Family Medicine [address] [place] [address] Family Medicine, Physician [address] [place], [place] [phone] Social History Tobacco Use Types Packs/Day Years [...] on filedocumented in this encounter Care Teams Receivable Executive Relationship Specialty Start Date End Date Sherlyn Pino MD [address] [place] [id number] PCP - General 10/27/16 09/16/22 documented as of this encounter
[2024-10-11 09:16] LABS: Alanine Aminotransferase 58 U/L (0-40); Albumin Level 4.4 g/dL (3.5-5.0); Alkaline Phosphatase 70 U/L (39-117); Aspartate Amino Transferase 25 U/L (5-37); Cholesterol 177 mg/dL (<200); HDL Cholesterol 34 mg/dL (>40); Total Protein 7.4 g/dL (6.5-8.0); Triglycerides 207 mg/dL (<150)
[2024-10-11 09:33] LABS: HBS Num1 0.08 mIU/mL (0-7.99); HBc Num1 0.04 S/CO (0.00-0.79); HBsAGNum1 0.41 S/CO (0.00-0.99); Hepatitis B Surface Antigen Negative (Negative); ~HepC Num1 0.14 S/CO (0.00-0.79); ~Hepatitis B Surface Antibody NONREACTIVE (Nonreactive); ~Hepatitis C Antibody Nonreactive (Nonreactive)
== END 2024-10-11 08:19 | disposition home or self-care (01) ==
LOC: HO.LAB 08:18
DX: Z11.59 Encounter for screening for other viral diseases (principal); E78.2 Mixed hyperlipidemia; R79.89 Other specified abnormal findings of blood chemistry
CPT/HCPCS: 36415; 80061; 80076; 86704; 86706; 86803; 87340

== ENCOUNTER 2024-10-21 23:46 | Emergency (ER) | payer OTHER, SELFPAY ==
[2024-10-21 23:49] VITALS: BP 141/92; PULSE 89; RESP 18; TEMP 36.8; O2SAT 98; BMI 40.8
[2024-10-22 01:27] VITALS: BP 121/73; PULSE 72; RESP 18; TEMP 36.7; O2SAT 98
--- NOTE | 2024-10-22 02:12 | ED_ITS ---
HPI - Headache General Chief Complaint: Headache Stated Complaint: migraine Time Seen by Provider: 10/22/24 02:06 Source: patient Mode of arrival: ambulatory Limitations: no limitations History of Present Illness ED Provider: Rodger ESPARZA HPI Narrative: The patient is a 29-year-old male presenting to the emergency department for evaluation of recurring headache described as a pressure over the past 2 weeks with minimal relief with ibuprofen and Tylenol. Patient reports 2 Fridays ago he came home from work with a pain in his bilateral lower neck radiating into his occipital region. Patient reports the pain was mild but then began growing in severity and patient reports developing associated waxing and waning global headache. The patient denies diagnosis of migraines, does not take abortive medications. The patient denies associated fever/chills, nausea, vomiting, photosensitivity, focal neurological deficit, vision changes, anticoagulation, or recent fall or other trauma. The patient reports his fiancee had a viral URI which has since resolved, reports ongoing sinus congestion which he reports is similar to his seasonal allergies. The patient denies associated cough, shortness of breath, chest pain, pleurisy, sore throat, or rhinorrhea. 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 The patient denies any surgical spinal history. Related Data Previous Rx's ?Medication ?Instructions ?Recorded ibuprofen 800 mg tablet 800 mg PO Q8H PRN pain #14 t abs 12/27/22 omeprazole 20 mg capsule,delayed 20 mg PO DAILY #90 ca ps 03/11/24 release cholecalciferol (vitamin D3) 25 25 mcg PO DAILY #90 ca ps 03/17/24 mcg (1,000 unit) capsule albuterol sulfate 90 mcg/actuation 2 puff inhalation Q 6H PRN 09/09/24 aerosol inhaler (Ventolin HFA) shortness of breath or wheezing #6.7 grams hydroxyzine HCl 10 mg tablet 10 mg PO BEDTIME #30 tabs 09/09/24 acetaminophen 500 mg capsule 1,000 mg (2 x 500 mg) PO .q8 PRN 10/22/24 fever or pain #30 caps cyclobenzaprine 10 mg tablet 10 mg PO TID PRN muscle s pasm #14 10/22/24 tabs ibuprofen 600 mg tablet 600 mg PO Q8H PRN fever or p ain 10/22/24 #30 tabs Allergies Allergy/AdvReac Type Severity Reaction Status Date / Time No Known Allergies Allergy Verified 10/21/24 23:53 Review of Systems Review of Systems: Yes all other systems are reviewed and are negative PMFSH Past Medical History Medical History Asthma Fracture of fifth metatarsal bone with routine healing Fracture of fifth metatarsal bone of right foot Surgical History Hx of foot surgery Family History Family History Mother Diabetes Father HTN (hypertension) Social History Social History Housing: House Alcohol intake: current Alcohol intake frequency: holidays/special occasions only Patient Tobacco Use Status: Never used Tobacco Smoked in Last 30 Days: No e-Cigarette/Vaping Use: Former Use Date or number of years quit: 2016 Second Hand Smoke Exposure: No Use of substances other than those prescribed or required for medical reasons: Yes Substance Use Type: Marijuana Advance Directives: No Advance Directives Information Provided: Yes service: No Current occupational status: employed 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 Vital signs as documented. HEAD: Atraumatic, normocephalic. EYES: EOMs grossly intact, pupils equal, conjunctiva clear, no exudate. ENT: Nares patent, no discharge. Airway patent, no audible stridor, visible mucosa is pink and moist without noted lesions. NECK: Trachea is midline, no obvious masses or gross abnormalities. No midline spinous tenderness or crepitus, no step-off. Patient denies paraspinal tenderness but does report a tightness sensation. CHEST: Symmetric movement, normal appearance. LUNGS: LS present and CTAB, no w/r/r. Non-labored work of breathing. CARDIAC: Regular Rhythm, S1/S2 appreciated, no murmurs, rubs or gallops. ABDOMEN: Abdomen soft and non-tender x4 quadrants, no palpable masses or organomegaly. : Deferred. EXTREMITIES: Normal tone, moves all extremities spontaneously without reported pain. No obvious acute injury or deformity noted. NEURO: Alert and oriented x3, CN II-XII intact. Cerebellar Functioning intact. No sensory or motor deficits. Strength 5/5 x4. Speech clear and appropriate. PSYCH: normal affect, appropriate eye contact, fluid speech, with appropriate response to questioning. No reported suicidality or homicidality. SKIN: Warm, dry, color appropriate, normal turgor. No rashes noted. Vital Signs: Vital Signs: Last Vital Signs Temp 98.2 F 10/22/24 04:02 Pulse 67 10/22/24 04:02 Resp 16 10/22/24 04:02 BP 131/77 10/22/24 04:02 Pulse Ox 98 10/22/24 04:02 O2 Del Method Room Air 10/22/24 04:02 BMI result Body Mass Index 40.8 NIH Stroke Scale Level of Consciousness: Alert Level of Consciousness Questions: Answers both questions correctly Level of Consciousness Commands: Performs both tasks correctly Best Gaze: Normal Visual: No visual loss Facial Palsy: Normal Motor Arm (Right): No drift Motor Arm (Left): No drift Motor Leg (Right): No drift Motor Leg (Left): No drift Limb Ataxia: Absent Sensory: Normal Best Language: No aphasia Dysarthia: Normal Extinction and Inattention: No abnormality Score: 0 Medications Administered Discontinued Medications Generic Name Dose Route Start Last Admin Trade Name Freq PRN Reason Stop Dose Admin Acetaminophen 975 mg 10/22/24 03:27 10/22/24 03:57 Acetaminophen 325 Mg Tablet PO 10/22/24 03:28 975 mg ONCE ONE Administration Cyclobenzaprine HCl 10 mg 10/22/24 03:27 10/22/24 03:57 Cyclobenzaprine Hcl 10 Mg Tablet PO 10/22/24 03:28 10 mg ONCE ONE Administration Ketorolac Tromethamine 30 mg 10/22/24 03:27 10/22/24 03:58 Ketorolac Tromethamine 30 Mg/Ml Vial IM 10/22/24 03:28 30 mg ONCE ONE Administration Lidocaine 1 patch 10/22/24 03:27 10/22/24 03:56 Lidocaine 4 % Patch Adh..Patch TRANSDERMA 10/22/24 03:28 1 patch ONCE ONE Administration Protocol Medical Decision Making Medical Decision Making [facility] Narrative: 3:34 AM 10/22/2024 (Sravan ESPARZA): The patient is a 29-year-old male presenting to the ED with 2 weeks of global headache which originates in the base of the neck, radiates up into the occiput and causes a global pressure sensation. The patient has had no recent trauma, no focal neurological deficits, and no reported dizziness. Patient has been able to complete his ADLs despite the discomfort. The patient in the ED is well-appearing, neuro exam is benign, no other acute findings. Patient's presentation is consistent with likely tension headache. Given the duration of symptoms and reassuring exam there was no indication for CT imaging at this time. The patient reports he last attempted taking ibuprofen or Tylenol last Sunday. At this time we will treat with Toradol, Tylenol, lidocaine, and Flexeril. Pending improvement in symptoms the patient will be discharged with staggered ibuprofen and Tylenol for the next 2-3 days, as well as Flexeril. Admission/Observation Consideration of admission/observation: Escalation of care including admission/observation considered Tests considered The following testing was considered but not selected: CT Head Prescription Management I considered prescription management with: Pain Medication Discharge Plan Discharge Clinical Impression: Acute tension headache Patient Disposition: Home, Self-Care Instructions: Tension Headache (ED) Additional Instructions: Thank you for choosing [facility]'s Emergency Department for your care today. Your presentation and exam today are reassuring. There is no indication for CT imaging and no indication for admission to the hospital or continued ED observation, it is safe to discharge you home. Your symptoms are consistent with a tension type headache, which may be related to your repetitive movements at work. As we discussed you should take alternating (staggered) doses of ibuprofen 600mg and Tylenol 1000mg every 4 hours for the next 2-3 days, and then as needed for any additional pain. Please stay well hydrated and get plenty of rest. As a part of your care plan, you have also been prescribed a muscle relaxer called Flexeril. Please take this medication only for severe pain or spasm that is not relieved by ibuprofen and/or Tylenol. Muscle relaxer medications can carry high risk of unintentional addiction and abuse. Take this medication only as directed and only if absolutely necessary. This medicine can make you drowsy, you are not allowed to drive, operate heavy machinery, or be the sole care provider for children while taking this medication. We have treated you with a lidocaine patch, if you find this provides you significant relief additional patches can be purchased at any local pharmacy without a prescription. Please follow up with your primary care physician for re-evaluation, physical therapy referral as indicated, additional management of your symptoms, and continued preventative care. If you do not have a primary care physician, please call the [facility] at [phone] to establish a new primary care physician. While waiting to establish your new primary care physician, you can call our Walk[facility]in [facility] at [phone] for non-emergency needs. Please return to the emergency department if you develop a severe or sudden change in your symptoms, a fever over 100.4 that does not improve with Tylenol or Ibuprofen, recurrent vomiting, or any other new or worsening symptoms or concerns. Prescriptions: New acetaminophen 500 mg capsule 1,000 mg PO .q8 PRN (Reason: fever or pain) Qty: 30 0RF cyclobenzaprine 10 mg tablet 10 mg PO TID PRN (Reason: muscle spasm) Qty: 14 0RF ibuprofen 600 mg tablet 600 mg PO Q8H PRN (Reason: fever or pain) Qty: 30 0RF No Action cholecalciferol (vitamin D3) 25 mcg (1,000 unit) capsule 25 mcg PO DAILY Qty: 90 3RF ibuprofen 800 mg tablet 800 mg PO Q8H PRN (Reason: pain) Qty: 14 0RF omeprazole 20 mg capsule,delayed release(DR/EC) 20 mg PO DAILY Qty: 90 2RF hydroxyzine HCl 10 mg tablet 10 mg PO BEDTIME Qty: 30 2RF albuterol sulfate [Ventolin HFA] 90 mcg/actuation HFA aerosol inhaler 2 puff inhalation Q6H PRN (Reason: shortness of breath or wheezing) Qty: 6.7 0RF Print Language: Tajik
[2024-10-22] MEDS: Lidocaine 4 % Patch ADH..PATCH 1 PATCH TRANSDERMA (03:56)
[2024-10-22 04:02] VITALS: BP 131/77; PULSE 67; RESP 16; TEMP 36.8; O2SAT 98
[2024-10-22 04:40] VITALS: BP 131/77; PULSE 67; RESP 16; TEMP 36.8; O2SAT 98
== END 2024-10-22 04:45 | disposition home or self-care (01) ==
PROVIDERS: Emergency Provider Emergency Medicine
DX: G44.209 Tension-type headache, unspecified, not intractable (principal)
CPT/HCPCS: 96372; 99284; J1885

== ENCOUNTER 2024-10-24 14:29 | Outpatient (AMB) | payer OTHER, SELFPAY ==
[2024-10-24 14:32] VITALS: BP 128/76; PULSE 92; O2SAT 97
--- NOTE | 2024-10-24 14:32 | MHC.PC.OV ---
Vital Signs 10/24/24 14:32 Weight 263 lb 8 oz BP 128/76 Pulse 92 Pulse Oximetry (%) 97 Intake Visit Reasons: migraines Tire Inspector Required: No Allergies No Known Allergies Allergy (Verified 10/24/24 14:53) Medication List - Last Reconciled 10/24/24 by Tatianna Arce PA-C acetaminophen 1,000 mg (2 x 500 mg) PO .q8 PRN albuterol sulfate 90 mcg/actuation (Ventolin HFA) 2 puffs inhalation Q6H PRN cholecalciferol (vitamin D3) 25 mcg PO DAILY cyclobenzaprine 10 mg PO TID PRN hydroxyzine HCl 10 mg PO BEDTIME ibuprofen 600 mg PO Q8H PRN ibuprofen 800 mg PO Q8H PRN omeprazole 20 mg PO DAILY Tobacco use date assessed: 10/24/24 Dental Screening Dental Screen Date: 10/24/24 Did you have a dental visit in the last 12 months?: No Did you have a dental problem in the last 6 months where you did not have access to dental care?: No Was dental information given to patient?: No HPI migraines HPI Details 29-year-old male with past medical history of plantar fasciitis, generalized anxiety disorder and asthma last seen 08/2024 coming in for follow up. In review of the notes, patient was seen in [facility] [place] [facility] [place]24 diagnosed with tension headache given tylenol, ibuprofen and flexeril and d/c home. Presenting with persistent headaches. The headaches have been ongoing for a few weeks, with pain originating from the neck and traveling across the head, often accompanied by pressure behind the eyes. The patient visited the ER where a cognitive test was performed, and the headaches were attributed to tension headaches without imaging studies. The patient reports constant headaches, with pressure felt around the head, especially upon waking up, despite using a muscle relaxer for sleep. The patient experiences jaw pain and difficulty opening the jaw, suggesting possible temporomandibular joint disorder, potentially exacerbated by stress and teeth clenching. The patient has been experiencing increased stress since purchasing a house, which may contribute to the headaches. The patient has a history of allergies, with potential sinus headaches exacerbated by exposure to a dog, despite using antihistamines intermittently. [facility] Medical History Asthma Fracture of fifth metatarsal bone with routine healing Fracture of fifth metatarsal bone of right foot Surgical History Hx of foot surgery Family History Mother Diabetes Father HTN (hypertension) Social History Housing: House Alcohol intake: current Alcohol intake frequency: holidays/special occasions only Patient Tobacco Use Status: Never used Tobacco e-Cigarette/Vaping Use: Former Use Date or number of years quit: 2016 Second Hand Smoke Exposure: No Substance Use Type: Marijuana service: No Current occupational status: employed 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 Current occupational exposures/hazards: Yes Cognitive needs: No Hearing needs: No Vision needs: Yes (Glasses) Questionnaire Thrive Questionnaire Date Thrive assessed: 10/24/24 I am a: Patient What is your living situation today?: I have a steady place to live Within the past 12 months, did the food you bought not last and you didn't have the money to get more?: Never true Within the past 12 months, did you worry whether your food would run out before you got money to buy more?: Never true Do you have trouble paying for medicines?: No Do you have trouble getting transportation to medical appointments?: No Do you have trouble paying your heating and electricity bill?: No Do you have trouble taking care of your child, family member or friend?: No Do you have trouble with day-to-day activities such as bathing, preparing meals, shopping, managing finances, etc.?: No Are you currently unemployed and looking for a job?: No Are you interested in more education?: No Please select the resources that you would like help with: None Currently or been in a relationship where the following occur: No concerns reported THRIVE Score: 0 GALA-7 AMB Questionnaire GALA-7 Date GALA - 7 assessed: 10/24/24 Source: Developed by Drs. Salazar Marroquin, Sonia Guajardo, Mika Curran and colleagues, with an educational yao from [employer]. Review of Systems Const Denies body aches, Denies chills, Denies fever(s), Reports headache(s) and Denies poor appetite Eyes Reports no additional complaints ENT Denies dizziness and Reports headache(s) Card Denies chest pain, Denies syncope, Denies edema, Denies irregular heart rhythm, Denies lightheadedness and Denies dyspnea Resp Denies cough and Denies dyspnea GI Denies abdominal pain, Denies nausea and Denies vomiting Reports no additional complaints Musc Reports as per HPI and Denies abnormal gait Skin/Breast Reports system reviewed and no additional complaints, except as documented Neuro Denies abnormal gait, Denies dizziness, Denies syncope and Reports headache(s) Psych Reports no additional complaints Physical exam (Primary Care) Vital Signs: Last Vital Signs Pulse 92 10/24/24 14:32 BP 128/76 10/24/24 14:32 Pulse Ox 97 10/24/24 14:32 Tobacco/Smoking Status: Tobacco use Status Tobacco use date assessed 10/24/24 10/24/24 14:36 Patient Tobacco Use Status Never used Tobacco 10/24/24 14:36 e-Cigarette/Vaping Use Former Use 10/24/24 14:36 Thrive Assessment: Date of Thrive Assessment Date Thrive assessed 10/24/24 10/24/24 14:36 Currently or been in a relationship where the following occur: No concerns reported Const General: cooperative, healthy appearing, comfortable and no acute distress Orientation/consciousness: patient oriented x3 HENMT Other: Tenderness to TMJ bilaterally Head: Yes normocephalic Ears: hearing grossly normal bilaterally General nose exam: Normal external nose present Eyes General: appearance normal, both eyes and all related structures Conjunctivae: conjunctivae normal Pupils: Equal, round and reactive pupils present Neck Neck: Yes full ROM and Yes no lymphadenopathy Resp Effort & Inspection: normal respiratory effort Auscultation: clear to auscultation bilaterally, no crackles, no rales, no rhonchi and no wheezes Cardio Rate: regular rate Rhythm: regular rhythm Skin General skin exam: no rashes or lesions noted Neuro General: patient oriented x3 Cranial nerves: Yes CN's II-XII intact bilaterally, Yes Facial sensation intact/muscles of mastication intact, Yes Equal, round and reactive pupils present, Yes Normal accommodation reflex present, Yes Bilaterally intact EOM present and Yes Normal facial strength present Gait exam (Neuro): Normal gait present Motor exam (neuro): 5/5 motor strength present throughout, Pronator motor function not present and no tremor noted Extrem General: Yes normal to inspection, Yes full ROM and No edema Psych Affect: normal affect Attitude: cooperative Insight: Good insight present (Psych) Judgement: Good judgement present (Psych) Coding Level of Care Code Est Pt Level 3 (83456) Diagnoses Headache R51.9 Assessment & Plan Assessment & Plan (1) Headache: Code(s): R51.9 - Headache, unspecified Category: Medical Plan: Headaches are likely multifactorial including TMJ, neck pain, allergic symptoms, updated eye glasses prescription. The plan includes obtaining an x-ray of the neck to investigate the source of the headaches, as they may be originating from the cervical region. A mouthguard is recommended for nighttime use to address potential teeth clenching and temporomandibular joint disorder, which could be contributing to the headaches. The patient is advised to continue using antihistamines such as Zyrtec or Amy daily to manage allergic symptoms and potential sinus headaches. Blood work will be conducted to rule out any underlying conditions that may be contributing to the headaches. The patient is encouraged to monitor symptoms and report any changes, with a follow-up plan to consider imaging of the head if symptoms persist despite initial interventions. He also mentions having outdated prescription lenses and is scheduled to have new lines in the next few weeks. Consider head CT if symptoms do not improve. Plan This note was constructed using voice recognition software. While every effort has been made to ensure accuracy and supervisor audit clerks, still areas may have been included sometimes these areas may affect the content or meeting of the given symptoms. Total time spent caring for the patient today was 20 minutes. This includes time spent before the visit reviewing the chart, time spent during the visit, and time spent after the visit and documentation. Patient was informed and verbally consented to the use of an ambient scribe for clinic note documentation during this visit. Orders: Orders TSH reflex Free T4 Today R51.9 - Headache, unspecified, Z00.00 - Encounter for general adult medical examination without abnormal findings Vitamin B12 and Folate Today R51.9 - Headache, unspecified, Z13.21 - Encounter for screening for nutritional disorder Comprehensive Met. Panel Today R79.89 - Other specified abnormal findings of blood chemistry, Z00.00 - Encounter for general adult medical examination without abnormal findings XR cervical spine 2V Today R51.9 - Headache, unspecified Vitamin D 25-OH Total Today R51.9 - Headache, unspecified, Z13.21 - Encounter for screening for nutritional disorder Complete Blood Count Auto Diff Today K21.9 - Gastro-esophageal reflux disease without esophagitis, Z00.00 - Encounter for general adult medical examination without abnormal findings
== END 2024-10-24 15:10 | disposition home or self-care (01) ==
LOC: HO.HMCH 14:30
DX: R51.9 Headache, unspecified (principal)

== ENCOUNTER → 2024-10-24 14:29 | Outpatient (BNVA) | payer OTHER, SELFPAY | DX: F41.1 Generalized anxiety disorder (principal); R51.9 Headache, unspecified; K21.9 Gastro-esophageal reflux disease without esophagitis; R79.89 Other specified abnormal findings of blood chemistry | CPT/HCPCS: 99212 ==

== ENCOUNTER 2025-01-06 08:00 | Outpatient (REF) | payer OTHER, SELFPAY ==
[2025-01-06 11:57] LABS: Folate 11.7 ng/mL (> or = 4.0); Vitamin B12 459 pg/mL (200-900)
[2025-01-12 05:58] LABS: Vitamin D 25-OH, D2 <4 ng/mL; Vitamin D 25-OH, D3 22 ng/mL; Vitamin D 25-OH, Total 22 ng/mL (30-100)
== END 2025-01-06 08:01 | disposition home or self-care (01) ==
LOC: HO.LAB 08:00
PROVIDERS: Visit Provider Nurse Practitioner Family
DX: K21.9 Gastro-esophageal reflux disease without esophagitis (principal); K59.00 Constipation, unspecified; E55.9 Vitamin D deficiency, unspecified; R19.7 Diarrhea, unspecified; R79.89 Other specified abnormal findings of blood chemistry
CPT/HCPCS: 36415; 82306; 82607; 82746; 84443; 86364; 99202

== ENCOUNTER 2025-01-06 08:00 | Outpatient (AMB) | payer OTHER, SELFPAY ==
--- NOTE | 2025-01-06 08:04 | A.OFFVIS_ITS ---
Vital Signs 01/06/25 08:09 Height 5 ft 7 in Weight 260 lb BMI 40.7 BP 134/76 Blood Pressure Location Rt brachial Position Sitting Pulse 84 Pulse Source Pulse Oximeter Pulse Oximetry (%) 98 Oxygen Delivery Method Room Air Intake Visit Reasons: Intestinal malabsorption Intake Note: New pt for initial eval and R/O IBS. Current abnormalities including mucus in the stool CC: C.O. intermittent constipation + diarrhea, increased frequency of BMs, occasional BRB per rectum. Pt has hx of GERD which is currently treated with PPI which pt states is still helpful when he remembers to take it. Designer Writer Required: No Accompanied by: Self / Same As Patient Allergies No Known Allergies Allergy (Verified 10/24/24 14:53) HPI HPI Intestinal malabsorption: Details: 29 years old male with past medical history of hypertriglyceridemia, food allergies, transaminitis, GERD, depression, asthma, anxiety is here today for initial consultation. Patient was sent to us by his PCP. Patient has been experiencing change in the bowel pattern in the past few months. Incomplete emptying every time he has a bowel movement. Mucus in his stool. Denies melena or hematochezia. Patient reports abdominal cramping when having urge to have a bowel movement. Cramps go away after he has a bowel movement. Patient also reports postprandial abdominal bloating, epigastric pain and occasionally loose stool. Patient denies acid reflux, dyspepsia, dysphagia or odynophagia. Patient admits no fiber. Mainly meat with rice. Patient tries to eat vegetables, however may be only couple times a week. Patient denies any nausea or vomiting. Denies any other GI concerning symptoms. Patient has a history of asthma. Has seen sheriff's detective in the past and was told that he is allergic to lactose and should stay away from it. Patient admits that he is eating a lot of cheese, reports bloating after eating cheese [facility] Medical History (Updated 01/06/25 @ 09:31 by Miri Lambert [facility]) Asthma Fracture of fifth metatarsal bone with routine healing Fracture of fifth metatarsal bone of right foot Surgical History Hx of foot surgery Family History Mother Diabetes Father HTN (hypertension) Social History Housing: House Alcohol intake: current Alcohol intake frequency: holidays/special occasions only Patient Tobacco Use Status: Never used Tobacco e-Cigarette/Vaping Use: Former Use Date or number of years quit: 2016 Second Hand Smoke Exposure: No Substance Use Type: Marijuana service: No Current occupational status: employed 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[employer]./left handed Current occupational exposures/hazards: Yes Cognitive needs: No Hearing needs: No Vision needs: Yes (Glasses) Review of Systems Const Denies weight gain and Denies weight loss ENT Reports no additional complaints, Denies dysphagia and Denies odynophagia Card Reports no additional complaints Resp Reports no additional complaints GI Denies abdominal pain, Denies belching, Denies melena, Denies bloating, Denies change in bowel habits, Denies dysphagia, Denies excessive flatus, Denies dyspepsia, Denies heartburn, Denies diarrhea, Denies loose stools, Denies nausea, Denies odynophagia and Denies vomiting Reports no additional complaints Musc Reports no additional complaints Neuro Reports no additional complaints Psych Reports no additional complaints Endo Reports no additional complaints Physical Exam Vital Signs: Last Vital Signs Pulse 84 01/06/25 08:09 BP 134/76 01/06/25 08:09 Pulse Ox 98 01/06/25 08:09 Oxygen Delivery Method Room Air 01/06/25 08:09 BMI result Body Mass Index 40.7 Const General: healthy appearing and no acute distress Nutritional Appearance: obese Orientation/consciousness: patient oriented x3 Resp Effort & Inspection: normal respiratory effort, able to speak in complete sentences, no tracheal deviation and symmetric chest movement Auscultation: clear to auscultation bilaterally Cardio Rate: regular rate GI Inspection: Yes normal to inspection, No distended and Yes obesity Palpation (GI): Soft to palpation, not firm, nontender and No hepatosplenomegaly present Auscultation: normal bowel sounds General: Yes no CVA tenderness Back/Spine/Pelvis Back: no CVA tenderness Skin General skin exam: elasticity normal, turgor normal and dry skin Neuro General: patient oriented x3 Psych Appearance: grossly normal Mental Status: mental status grossly normal Assessment & Plan Assessment & Plan (1) GERD (gastroesophageal reflux disease): Code(s): K21.9 - Gastro-esophageal reflux disease without esophagitis Category: Medical Qualifiers: Esophagitis presence: esophagitis presence not specified Qualified Code(s): K21.9 - Gastro-esophageal reflux disease without esophagitis (2) Elevated LFTs: Code(s): R79.89 - Other specified abnormal findings of blood chemistry Category: Medical (3) Diarrhea: Code(s): R19.7 - Diarrhea, unspecified Category: Medical Qualifiers: Diarrhea type: unspecified type Qualified Code(s): R19.7 - Diarrhea, unspecified Plan Patient reports postprandial diarrhea, will rule out inflammatory processes versus malabsorption, possible irritable bowel. Will check transglutaminase, vitamin-D, B12, folate as well as thyroid study. Patient will try taking fiber daily. Increase fiber in his diet. Discussed with patient trying to lose weight. Transaminitis noted on his last labs as well as triglyceridemia. Patient was encouraged to avoid carbs, food high in fat. Avoid lactose. Low FODMAP diet discussed with him as well. List of food recommended as well as list of food to avoid given to patient. Patient will return to our office in 4 months. He was encouraged to call us if he will have any GI concerning symptoms. He is agreeable to this plan and verbalizes understanding of instructions. He was given the opportunity to ask questions and all questions answered Thank you for allowing me to participate in his care Orders: Orders Calprotectin, Fecal 01/06/25 R15.9 - Full incontinence of feces Vitamin D 25-OH (D2 and D3) 01/06/25 E55.9 - Vitamin D deficiency, unspecified Transglutaminase IgA 01/06/25 R10.9 - Unspecified abdominal pain TSH reflex Free T4 01/06/25 K59.00 - Constipation, unspecified Vitamin B12 and Folate 01/06/25 R19.7 - Diarrhea, unspecified Medications: New methylcellulose (laxative) (Citrucel) take it with full glass of water 500 mg PO DAILY 90 tabs 2RF K59.00 - Con stipation, unspecified Coding Level of Care Code New Pt Level 4 (37031) Diagnoses Gastroesophageal reflux disease, unspecified whether esophagitis present K21.9 Esophagitis presence: esophagitis presence not specified Elevated LFTs R79.89 Diarrhea, unspecified type R19.7 Diarrhea type: unspecified type Time Spent (min) 45 Comment 35 minutes spent with patient and additional 10 minutes spent reviewing his records
--- OUTSIDE RECORDS SUMMARY | 2025-01-06 08:04 | XMS_ITS | Encounter Summary ---
Author Organization [facility] Address [address] [place] [address] Phone Care Team Providers Care Parking Worker Name Role Phone Sherlyn Pino MD Primary Care Provider Encounter Details Date Type Department Care Team (Late st Contact Info) Description 11/17/2010 Documentation [facility] [place] Family Medicine [address] [place] [address] Family Medicine, Physician [address] [place], [place] [phone] Social History Tobacco Use Types Packs/Day Years [...] on filedocumented in this encounter Care Teams Parking Worker Relationship Specialty Start Date End Date Sherlyn Pino MD [address] [place] [address] PCP - General 10/27/16 09/16/22 documented as of this encounter
--- OUTSIDE RECORDS SUMMARY | 2025-01-06 08:04 | XMS_ITS | Encounter Summary ---
Author Organization [facility] Address [address] [place] [address] Phone Care Team Providers Care Decorative Engraver Apprentice Name Role Phone Sherlyn Pino MD Primary Care Provider [phone] Encounter Details Date Type Department Care Team (Late st Contact Info) Description 11/06/2011 Documentation [facility] [place] Family Medicine [address] [place] [address] Family Medicine, Physician [address] [place], [place] [phone] Social History Tobacco Use Types Packs/Day Years [...] on filedocumented in this encounter Care Teams Decorative Engraver Apprentice Relationship Specialty Start Date End Date Sherlyn Pino MD [address] [place] [address] PCP - General 10/27/16 09/16/22 documented as of this encounter
--- OUTSIDE RECORDS SUMMARY | 2025-01-06 08:04 | XMS_ITS | Encounter Summary ---
Author Organization [facility] Address [address] [place] [address] Phone Care Team Providers Care Excelsior Picker Name Role Phone Sherlyn Pino MD Primary Care Provider Encounter Details Date Type Department Care Team (Late st Contact Info) Description 11/06/2011 Documentation [facility] [place] Family Medicine [address] [place] [address] Family Medicine, Physician [address] [place], [place] [phone] Social History Tobacco Use Types Packs/Day Years [...] on filedocumented in this encounter Care Teams Excelsior Picker Relationship Specialty Start Date End Date Sherlyn Pino MD [address] [place] [address] PCP - General 10/27/16 09/16/22 documented as of this encounter
--- OUTSIDE RECORDS SUMMARY | 2025-01-06 08:04 | XMS_ITS | Encounter Summary ---
Author Organization [facility] Address [address] [place] [address] Phone Care Team Providers Care Fryer Operator Name Role Phone Sherlyn Pino MD Primary Care Provider Encounter Details Date Type Department Care Team (Late st Contact Info) Description 11/06/2011 Documentation [facility] [place] Family Medicine [address] [place] [address] Family Medicine, Physician [address] [place], [place] [phone] Social History Tobacco Use Types Packs/Day Years [...] on filedocumented in this encounter Care Teams Fryer Operator Relationship Specialty Start Date End Date Sherlyn Pino MD [address] [place] [address] PCP - General 10/27/16 09/16/22 documented as of this encounter
--- OUTSIDE RECORDS SUMMARY | 2025-01-06 08:04 | XMS_ITS | Encounter Summary ---
Author Organization [facility] Address [address] [place] [address] Phone Care Team Providers Care Spacecraft Systems Engineer Name Role Phone Sherlyn Pino MD Primary Care Provider [phone] Encounter Details Date Type Department Care Team (Late st Contact Info) Description 11/17/2010 Documentation [facility] [place] [address] [place] [address] Family Medicine, Physician [address] [place], [place] [phone] Social History Tobacco Use Types Packs/Day Years [...] on filedocumented in this encounter Care Teams Spacecraft Systems Engineer Relationship Specialty Start Date End Date Sherlyn Pino MD [address] [place] [address] PCP - General 10/27/16 09/16/22 documented as of this encounter
--- OUTSIDE RECORDS SUMMARY | 2025-01-06 08:04 | XMS_ITS | Clinical Summary ---
Author Organization [facility] Address [address] [place] [address] Phone Care Team Providers Care District Manager Name Role Phone Unavailable Primary Care Provider [...] 74 02/18/2013 12:00 AM EST Temperature 37.6 C (99.7 F) 12/02/2013 12:00 AM EDT Respiratory Rate - - Oxygen Saturation - [...] 03/05/1996, Additional history exists Influenza Vaccines (#1) 2024 02/19/20 13, 11/16/2010, 11/17/2009, Additional history exists COVID-19 Vaccine ( season) 2024 Hepatitis B Vaccines Completed 02/24/1996, 1995, 1995 HIB Vaccines Completed 08/04/1996, 02/16, 01/04/1996, Additional history exists IPV Vaccines Completed 07/19/1999, 02/16, 01/04/1996, Additional history exists MMR Vaccines Completed 07/19/1999, 08/04/1996 Meningococcal Vaccine Aged Out 05/28/2007 No lashaun marquita eligible based on patient's age to complete this topic Varicella Vaccines Completed 05/28/2007, 07/21/1998 HPV Vaccines Completed 02/18/2013, 11/0 07/2011, 11/03/2011 Hepatitis A Vaccines Aged Out No long er eligible based on patient's age to complete this topic Men B Vaccine Aged Out No longer elig ible based on patient's age to complete this topic Pneumococcal Vaccine Aged Out No long er eligible based on patient's age to complete this topic
--- OUTSIDE RECORDS SUMMARY | 2025-01-06 08:04 | XMS_ITS | Encounter Summary ---
Author Organization [facility] Address [address] [place] [address] Phone Care Team Providers Care Assembler Deck And Hull Name Role Phone Sherlyn Pino MD Primary Care Provider Encounter Details Date Type Department Care Team (Late st Contact Info) Description 11/06/2011 Documentation [facility] [place] [address] [place] [address] Family Medicine, Physician [address] [place], [place] [phone] Social History Tobacco Use Types Packs/Day Years [...] on filedocumented in this encounter Care Teams Assembler Deck And Hull Relationship Specialty Start Date End Date Sherlyn Pino MD [address] [place] [address] PCP - General 10/27/16 09/16/22 documented as of this encounter
--- OUTSIDE RECORDS SUMMARY | 2025-01-06 08:04 | XMS_ITS | Encounter Summary ---
Author Organization [facility] Address [address] [place] [address] Phone Care Team Providers Care Jailer Chief Name Role Phone Sherlyn Pino MD Primary Care Provider Encounter Details Date Type Department Care Team (Late st Contact Info) Description 11/02/2016 Conversion Encounter [facility] [place] [address] [place] [address] Social History Tobacco Use Types Packs/Day Years [...] on filedocumented in this encounter Care Teams Jailer Chief Relationship Specialty Start Date End Date Sherlyn Pino MD [address] [place] [address] PCP - General 10/27/16 09/16/22 documented as of this encounter
--- OUTSIDE RECORDS SUMMARY | 2025-01-06 08:04 | XMS_ITS | Encounter Summary ---
Author Organization [facility] Address [address] [place] [address] Phone Care Team Providers Care Decorative Cutting Machine Tender Name Role Phone Sherlyn Pino MD Primary Care Provider Encounter Details Date Type Department Care Team (Late st Contact Info) Description 11/17/2010 Documentation [facility] [place] Family Medicine [address] [place] [address] Family Medicine, Physician [address] [place], [place] [phone] Social History Tobacco Use Types Packs/Day Years [...] filedocumented in this encounter Care Teams Decorative Cutting Machine Tender Relationship Specialty Start Date End Date Sherlyn Pino MD [address] [place] [address] PCP - General 10/27/16 09/16/22 documented as of this encounter
--- OUTSIDE RECORDS SUMMARY | 2025-01-06 08:04 | XMS_ITS | Encounter Summary ---
Author Organization [facility] Address [address] [place] [address] Phone Care Team Providers Care Cardiovascular Technologist Name Role Phone Sherlyn Pino MD Primary Care Provider Encounter Details Date Type Department Care Team (Late st Contact Info) Description 01/23/2012 Documentation [facility] [place] Family Medicine [address] [place] [address] Family Medicine, Physician [address] [place], [place] [phone] Social History Tobacco Use Types Packs/Day Years [...] on filedocumented in this encounter Care Teams Cardiovascular Technologist Relationship Specialty Start Date End Date Sherlyn Pino MD [address] [place] [address] PCP - General 10/27/16 09/16/22 documented as of this encounter
--- OUTSIDE RECORDS SUMMARY | 2025-01-06 08:04 | XMS_ITS | Encounter Summary ---
Author Organization [facility] Address [address] [place] [address] Phone Care Team Providers Care Machinist 2Nd Shift Name Role Phone Sherlyn Pino MD Primary Care Provider Encounter Details Date Type Department Care Team (Late st Contact Info) Description 02/20/2013 Documentation [facility] [place] [address] [place] [address] Family Medicine, Physician [address] [place], [place] [phone] Social History Tobacco Use Types Packs/Day Years [...] on filedocumented in this encounter Care Teams Machinist 2Nd Shift Relationship Specialty Start Date End Date Sherlyn Pino MD [address] [place] [address] PCP - General 10/27/16 09/16/22 documented as of this encounter
--- OUTSIDE RECORDS SUMMARY | 2025-01-06 08:04 | XMS_ITS | Encounter Summary ---
Author Organization [facility] Address [address] [place] [address] Phone Care Team Providers Care Transport Rn Name Role Phone Sherlyn Pino MD Primary Care Provider Encounter Details Date Type Department Care Team (Late st Contact Info) Description 02/20/2013 Documentation [facility] [place] Family Medicine [address] [place] [address] Family Medicine, Physician [address] [place], [place] [phone] Social History Tobacco Use Types Packs/Day Years [...] on filedocumented in this encounter Care Teams Transport Rn Relationship Specialty Start Date End Date Sherlyn Pino MD [address] [place] [address] PCP - General 10/27/16 09/16/22 documented as of this encounter
--- OUTSIDE RECORDS SUMMARY | 2025-01-06 08:04 | XMS_ITS | Encounter Summary ---
Author Organization [facility] Address [address] [place] [address] Phone Care Team Providers Care Cost Engineer Name Role Phone Sherlyn Pino MD Primary Care Provider Encounter Details Date Type Department Care Team (Late st Contact Info) Description 02/19/2013 Documentation [facility] [place] Family Medicine [address] [place] [address] Family Medicine, Physician [address] [place], [place] [phone] Social History Tobacco Use Types Packs/Day Years [...] on filedocumented in this encounter Care Teams Cost Engineer Relationship Specialty Start Date End Date Sherlyn Pino MD [address] [place] [phone] PCP - General 10/27/16 09/16/22 documented as of this encounter
--- OUTSIDE RECORDS SUMMARY | 2025-01-06 08:04 | XMS_ITS | Encounter Summary ---
Author Organization [facility] Address [address] [place] [address] Phone Care Team Providers Care Brush Trimming Machine Setter Name Role Phone Sherlyn Pino MD Primary Care Provider [phone] Encounter Details Date Type Department Care Team (Late st Contact Info) Description 11/17/2010 Documentation [facility] [place] Family Medicine [address] [place] [address] Family Medicine, Physician [address] [place], [place] [phone] Social History Tobacco Use Types Packs/Day Years [...] on filedocumented in this encounter Care Teams Brush Trimming Machine Setter Relationship Specialty Start Date End Date Sherlyn Pino MD [address] [place] [address] PCP - General 10/27/16 09/16/22 documented as of this encounter
--- OUTSIDE RECORDS SUMMARY | 2025-01-06 08:04 | XMS_ITS | Encounter Summary ---
Author Organization [facility] Address [address] [place] [address] Phone Care Team Providers Care Chopper Gun Operator Name Role Phone Sherlyn Pino MD Primary Care Provider Encounter Details Date Type Department Care Team (Late st Contact Info) Description 02/19/2013 Documentation [facility] [place] [place] Family Medicine [address] [place] [address] Family Medicine, Physician [address] [place], [place] [phone] Social History Tobacco Use Types Packs/Day Years [...] on filedocumented in this encounter Care Teams Chopper Gun Operator Relationship Specialty Start Date End Date Sherlyn Pino MD [address] [place] [address] PCP - General 10/27/16 09/16/22 documented as of this encounter
[2025-01-06 08:09] VITALS: BP 134/76; PULSE 84; O2SAT 98; BMI 40.7
== END 2025-01-06 08:27 | disposition home or self-care (01) ==
PROVIDERS: Visit Provider Nurse Practitioner Family
DX: K21.9 Gastro-esophageal reflux disease without esophagitis (principal); R79.89 Other specified abnormal findings of blood chemistry; R19.7 Diarrhea, unspecified
CPT/HCPCS: 99204

== ENCOUNTER 2025-02-09 08:29 | Outpatient (AMB) | payer OTHER, SELFPAY ==
--- OUTSIDE RECORDS SUMMARY | 2025-02-09 08:41 | XMS_ITS | Encounter Summary ---
Author Organization [facility] Address [address] [place] [address] Phone Care Team Providers Care Medical Pathology Teacher Name Role Phone Sherlyn Pino MD Primary Care Provider Encounter Details Date Type Department Care Team (Late st Contact Info) Description 11/06/2011 Documentation [facility] [place] Family Medicine [address] [place] [address] Family Medicine, Physician [address] [place], [place] [phone] Social History Tobacco Use Types Packs/Day Years [...] on filedocumented in this encounter Care Teams Medical Pathology Teacher Relationship Specialty Start Date End Date Sherlyn Pino MD [address] [place] [address] PCP - General 10/27/16 09/16/22 documented as of this encounter
--- OUTSIDE RECORDS SUMMARY | 2025-02-09 08:41 | XMS_ITS | Encounter Summary ---
Author Organization [facility] Address [address] [place] [address] Phone Care Team Providers Care Machinist Automotive Name Role Phone Sherlyn Pino MD Primary Care Provider Encounter Details Date Type Department Care Team (Late st Contact Info) Description 11/17/2010 Documentation [facility] [place] [address] [place] [address] Family Medicine, Physician [address] [place], [place] [phone] Social History Tobacco Use Types Packs/Day Years [...] filedocumented in this encounter Care Teams Machinist Automotive Relationship Specialty Start Date End Date Sherlyn Pino MD [address] [place] [address] PCP - General 10/27/16 09/16/22 documented as of this encounter
--- OUTSIDE RECORDS SUMMARY | 2025-02-09 08:41 | XMS_ITS | Encounter Summary ---
Author Organization [facility] Address [address] [place] [address] Phone Care Team Providers Care Leather Production Artisan Name Role Phone Sherlyn Pino MD Primary Care Provider Encounter Details Date Type Department Care Team (Late st Contact Info) Description 11/17/2010 Documentation [facility] [place] Family Medicine [address] [place] [address] Family Medicine, Physician [address] [place], [place] [phone] Social History Tobacco Use Types Packs/Day Years [...] on filedocumented in this encounter Care Teams Leather Production Artisan Relationship Specialty Start Date End Date Sherlyn Pino MD [address] [place] [address] PCP - General 10/27/16 09/16/22 documented as of this encounter
--- OUTSIDE RECORDS SUMMARY | 2025-02-09 08:41 | XMS_ITS | Encounter Summary ---
Author Organization [facility] Address [address] [place] [address] Phone Care Team Providers Care Counseling Center Director Name Role Phone Sherlyn Pino MD Primary Care Provider Encounter Details Date Type Department Care Team (Late st Contact Info) Description 11/06/[address] [facility] [place] Family Medicine [address] [place] [address] Family Medicine, Physician [address] [place], [place] [phone] Social History Tobacco Use Types Packs/Day Years [...] on filedocumented in this encounter Care Teams Counseling Center Director Relationship Specialty Start Date End Date Sherlyn Pino MD [address] [place] [address] PCP - General 10/27/16 09/16/22 documented as of this encounter
--- OUTSIDE RECORDS SUMMARY | 2025-02-09 08:41 | XMS_ITS | Encounter Summary ---
Author Organization [facility] Address [address] [place] [address] Phone Care Team Providers Care Operator Control Room Name Role Phone Sherlyn Pino MD Primary Care Provider Encounter Details Date Type Department Care Team (Late st Contact Info) Description 11/06/2011 Documentation [facility] [place] [address] [place] [address] Family Medicine, Physician [address] [place], [place] [phone] Social History Tobacco Use Types Packs/Day Years [...] on filedocumented in this encounter Care Teams Operator Control Room Relationship Specialty Start Date End Date Sherlyn Pino MD [address] [place] [address] PCP - General 10/27/16 09/16/22 documented as of this encounter
--- OUTSIDE RECORDS SUMMARY | 2025-02-09 08:41 | XMS_ITS | Encounter Summary ---
Author Organization [facility] Address [address] [place] [address] Phone Care Team Providers Care Urban Anthropologist Name Role Phone Sherlyn Pino MD Primary Care Provider [phone] Encounter Details Date Type Department Care Team (Late st Contact Info) Description 11/06/2011 Documentation [facility] Family Medicine [address] [place] [address] Family Medicine, Physician [address] [place], [place] [phone] Social History Tobacco Use Types Packs/Day Years [...] on filedocumented in this encounter Care Teams Urban Anthropologist Relationship Specialty Start Date End Date Sherlyn Pino MD [address] [place] [phone] PCP - General 10/27/16 09/16/22 documented as of this encounter
--- OUTSIDE RECORDS SUMMARY | 2025-02-09 08:42 | XMS_ITS | Encounter Summary ---
Author Organization [facility] Address [address] [place] [address] Phone Care Team Providers Care Nurse Special Name Role Phone Sherlyn Pino MD Primary Care Provider Encounter Details Date Type Department Care Team (Late st Contact Info) Description 02/19/2013 Documentation [facility] [place] [address] [place] [address] Family Medicine, Physician [address] [place], [place] [phone] Social History Tobacco Use Types Packs/Day Years [...] on filedocumented in this encounter Care Teams Nurse Special Relationship Specialty Start Date End Date Sherlyn Pino MD [address] [place] [phone] PCP - General 10/27/16 09/16/22 documented as of this encounter
--- OUTSIDE RECORDS SUMMARY | 2025-02-09 08:42 | XMS_ITS | Encounter Summary ---
Author Organization [facility] Address [address] [place] [address] Phone Care Team Providers Care Wood Processing Worker Name Role Phone Sherlyn Pino MD Primary Care Provider [phone] Encounter Details Date Type Department Care Team (Late st Contact Info) Description 02/19/2013 Documentation [facility] [place] Family Medicine [address] [place] [address] Family Medicine, Physician [address] [place], [place] [phone] Social History Tobacco Use Types Packs/Day Years [...] on filedocumented in this encounter Care Teams Wood Processing Worker Relationship Specialty Start Date End Date Sherlyn Pino MD [address] [place] [address] PCP - General 10/27/16 09/16/22 documented as of this encounter
--- OUTSIDE RECORDS SUMMARY | 2025-02-09 08:42 | XMS_ITS | Encounter Summary ---
Author Organization [facility] Address [address] [place] [address] Phone Care Team Providers Care Shuttle Car Operator Name Role Phone Sherlyn Pino MD Primary Care Provider Encounter Details Date Type Department Care Team (Late st Contact Info) Description 02/20/2013 Documentation [facility] [place] [address] [place] [address] Family Medicine, Physician [address] [place], [place] [phone] Social History Tobacco Use Types Packs/Day Years [...] on filedocumented in this encounter Care Teams Shuttle Car Operator Relationship Specialty Start Date End Date Sherlyn Pino MD [address] [place] [address] PCP - General 10/27/16 09/16/22 documented as of this encounter
--- OUTSIDE RECORDS SUMMARY | 2025-02-09 08:42 | XMS_ITS | Encounter Summary ---
Author Organization [facility] Address [address] [place] [address] Phone Care Team Providers Care Claim Approver Name Role Phone Sherlyn Pino MD Primary Care Provider Encounter Details Date Type Department Care Team (Late st Contact Info) Description 02/20/2013 [place]ation [facility] [place] [address] [place] [address] Family Medicine, Physician [address] [place], [place] [phone] Social History Tobacco Use Types Packs/Day Years [...] on filedocumented in this encounter Care Teams Claim Approver Relationship Specialty Start Date End Date Sherlyn Pino MD [address] [place] [address] PCP - General 10/27/16 09/16/22 documented as of this encounter
--- OUTSIDE RECORDS SUMMARY | 2025-02-09 08:42 | XMS_ITS | Encounter Summary ---
Author Organization [facility] Address [address] [place] [address] Phone Care Team Providers Care Credit And Loan Collections Supervisor Name Role Phone Sherlyn Pino MD Primary Care Provider Encounter Details Date Type Department Care Team (Late st Contact Info) Description 11/17/2010 Documentation [facility] [place] Family Medicine [address] [place] [address] Family Medicine, Physician [address] [place], [place] [phone] Social History Tobacco Use Types Packs/Day Years [...] on filedocumented in this encounter Care Teams Credit And Loan Collections Supervisor Relationship Specialty Start Date End Date Sherlyn Pino MD [address] [place] [address] PCP - General 10/27/16 09/16/22 documented as of this encounter
--- OUTSIDE RECORDS SUMMARY | 2025-02-09 08:42 | XMS_ITS | Encounter Summary ---
Author Organization [facility] Address [address] [place] [address] Phone Care Team Providers Care Program Supervisor Name Role Phone Sherlyn Pino MD Primary Care Provider Encounter Details Date Type Department Care Team (Late st Contact Info) Description 11/17/2010 Documentation [facility] [place] Family Medicine [address] [place] [address] Family Medicine, Physician [address] [place], [place] [phone] Social History Tobacco Use Types Packs/Day Years [...] on filedocumented in this encounter Care Teams Program Supervisor Relationship Specialty Start Date End Date Sherlyn Pino MD [address] [place] [address] PCP - General 10/27/16 09/16/22 documented as of this encounter
--- OUTSIDE RECORDS SUMMARY | 2025-02-09 08:42 | XMS_ITS | Clinical Summary ---
Author Organization [facility] Address [address] [place] [address] Phone Care Team Providers Care Control Specialist Name Role Phone Unavailable Primary Care [...]
--- OUTSIDE RECORDS SUMMARY | 2025-02-09 08:42 | XMS_ITS | Encounter Summary ---
Author Organization [facility] Address [address] [place] [address] Phone Care Team Providers Care Waiter Name Role Phone Sherlyn Pino MD Primary Care Provider Encounter Details Date Type Department Care Team (Late st Contact Info) Description 11/02/2016 Conversion Encounter [facility] [place] [address] [place] [address] Social History Tobacco Use Types Packs/Day Years [...] on filedocumented in this encounter Care Teams Waiter Relationship Specialty Start Date End Date Sherlyn Pino MD [address] [place] [address] PCP - General 10/27/16 09/16/22 documented as of this encounter
--- OUTSIDE RECORDS SUMMARY | 2025-02-09 08:42 | XMS_ITS | Encounter Summary ---
Author Organization [facility] Address [address] [place] [address] Phone Care Team Providers Care Poultry Tender Name Role Phone Sherlyn Pino MD Primary Care Provider [phone] Encounter Details Date Type Department Care Team (Late st Contact Info) Description 01/23/2012 Documentation [facility] [place] [address] [place] [address] Family Medicine, Physician [address] [place], [place] [phone] Social History Tobacco Use Types Packs/Day Years [...] on filedocumented in this encounter Care Teams Poultry Tender Relationship Specialty Start Date End Date Sherlyn Pino MD [address] [place] [address] PCP - General 10/27/16 09/16/22 documented as of this encounter
[2025-02-09 09:09] VITALS: BP 142/88; PULSE 86; O2SAT 98; BMI 41.1
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
== END 2025-02-09 09:44 | disposition home or self-care (01) ==
PROVIDERS: Visit Provider Internal Medicine
DX: S13.4XXD Sprain of ligaments of cervical spine, subsequent encounter (principal); R51.9 Headache, unspecified; S29.012A Strain of muscle and tendon of back wall of thorax, initial encounter

== ENCOUNTER 2025-02-09 08:29 | Outpatient (REF) | payer OTHER, SELFPAY ==
--- NOTE | ~2025-02-09 | XR_ITS ---
EXAMINATION: XR THORACIC SPINE CLINICAL INFORMATION: S13.4XXA - Sprain of ligaments of cervical spine, initial encounter COMPARISON: Cervical spine and chest and rib x-rays from the same day TECHNIQUE: 3 views of the thoracic spine were obtained. FINDINGS: There is no fracture or bone destruction seen and the vertebral alignment is normal. There is no disc space narrowing. There is no abnormality of the paraspinal soft tissues. XR/XR thoracic spine 2V IMPRESSION: Unremarkable examination. Electronically signed by: Gail Mahajan MD 02/09/2025 12:39 PM [facility]
--- NOTE | ~2025-02-09 | XR_ITS ---
EXAMINATION: XR RIBS, BILATERAL CLINICAL INFORMATION: S13.4XXA - Sprain of ligaments of cervical spine, initial encounter COMPARISON: Thoracic spine x-ray from the same day, left shoulder MRI January 2023 and left shoulder x-ray November 2022 TECHNIQUE: 3 views of the bilateral ribs were obtained. FINDINGS: Lungs are clear. No consolidation, pneumothorax, or pleural effusion. The cardiomediastinal silhouette and pulmonary vasculature are normal. Ribs are intact. No fractures are identified. There is a sclerotic lesion seen in the left proximal humerus/metadiaphysis measuring 4 cm in length. This does not appear appreciably changed from 2022 exam. XR/XR ribs BI min 4V w CXR1V IMPRESSION: Normal chest and ribs. Stable appearing 4 cm sclerotic lesion in the left proximal humerus from 2022 exams. Electronically signed by: Gail Mahajan MD 02/09/2025 12:39 PM [facility] [place]
--- NOTE | ~2025-02-09 | XR_ITS ---
EXAMINATION: XR CERVICAL SPINE CLINICAL INFORMATION: S13.4XXA - Sprain of ligaments of cervical spine, initial encounter COMPARISON: Thoracic spine x-ray from the same day TECHNIQUE: 3 views of the cervical spine were obtained. FINDINGS: Bone alignment is normal. No fracture or dislocation. Normal disc spaces. Prevertebral soft tissues. XR/XR cervical spine 2V IMPRESSION: Unremarkable examination. Electronically signed by: Gail Mahajan MD 02/09/2025 12:38 PM [facility]
== END 2025-02-09 08:30 | disposition home or self-care (01) ==
LOC: HO.XRAY 08:29
PROVIDERS: Visit Provider Internal Medicine
DX: S13.4XXA Sprain of ligaments of cervical spine, initial encounter (principal); R51.9 Headache, unspecified; S29.012A Strain of muscle and tendon of back wall of thorax, initial encounter; Z79.899 Other long term (current) drug therapy
CPT/HCPCS: 71111; 72040; 72070

== ENCOUNTER → 2025-02-09 10:03 | Outpatient (BNV) | payer OTHER, SELFPAY | PROVIDERS: Visit Provider Radiology Diagnostic Radiology | DX: S13.4XXA Sprain of ligaments of cervical spine, initial encounter (principal) | CPT/HCPCS: 71111; 72040; 72070 ==

== ENCOUNTER 2025-02-23 07:29 | Outpatient (REF) | payer OTHER, SELFPAY ==
--- NOTE | ~2025-02-23 | CT_ITS ---
EXAMINATION: CT HEAD WITHOUT CONTRAST CLINICAL INFORMATION: S13.4XXA - Sprain of ligaments of cervical spine, initial encounter COMPARISON: None available. TECHNIQUE: Contiguous axial imaging was performed from the skull base to vertex without intravenous administration of contrast. This CT examination was performed using dose optimization techniques as appropriate, variously including the following: *Automated exposure control *Adjustment of mA and/or kV according to patient size (this includes techniques or standardized protocols for targeted exams where dose is matched to indication/reason for exam; i.e. extremities or head) *Use of iterative reconstruction technique DLP: 1026 mGy-cm FINDINGS: No acute cortical disruption, bony calvarium. No acute intracranial hemorrhage, mass effect, midline shift, hydrocephalus or herniation. Elizondo-white matter differentiation is normal. Sellar/suprasellar region demonstrated no gross masses. Craniocervical junction is intact with normal position of the cerebellar tonsils. Mild mucosal thickening, right maxillary sinus. No air-fluid levels in the paranasal sinuses. Tympanic cavities and mastoid cells are aerated. No gross masses within the intraconal or extraconal compartments of the orbits. CT/CT head/brain wo IV con IMPRESSION: No acute or structural brain abnormality by CT Electronically signed by: Erick Sherwood MD 02/23/2025 08:46 AM EST
--- OUTSIDE RECORDS SUMMARY | 2025-02-23 07:32 | XMS_ITS | Encounter Summary ---
Author Organization [facility] Address [address] [place] [address] Phone Care Team Providers Care Explosive Ordnance Manager Name Role Phone Sherlyn Pino MD Primary Care Provider Encounter Details Date Type Department Care Team (Late st Contact Info) Description 11/06/2011 Documentation [facility] [place] [address] [place] [address] Family Medicine, Physician [address] [place], [place] [phone] Social History Tobacco Use Types Packs/Day Years [...] on filedocumented in this encounter Care Teams Explosive Ordnance Manager Relationship Specialty Start Date End Date Sherlyn Pino MD [address] [place] [address] PCP - General 10/27/16 09/16/22 documented as of this encounter
--- OUTSIDE RECORDS SUMMARY | 2025-02-23 07:32 | XMS_ITS | Encounter Summary ---
Author Organization [facility] Address [address] [place] [address] Phone Care Team Providers Care Procedures Rn Name Role Phone Sherlyn Pino MD Primary Care Provider [phone] Encounter Details Date Type Department Care Team (Late st Contact Info) Description 11/17/2010 Documentation [facility] [place] [address] [place] [address] Family Medicine, Physician [address] [place], [place] [phone] Social History Tobacco Use Types Packs/Day Years [...] on filedocumented in this encounter Care Teams Procedures Rn Relationship Specialty Start Date End Date Sherlyn Pino MD [address] [place] [address] PCP - General 10/27/16 09/16/22 documented as of this encounter
--- OUTSIDE RECORDS SUMMARY | 2025-02-23 07:32 | XMS_ITS | Encounter Summary ---
Author Organization [facility] Address [address] [place] [address] Phone Care Team Providers Care Public Health Training Assistant Name Role Phone Sherlyn Pino MD Primary Care Provider Encounter Details Date Type Department Care Team (Late st Contact Info) Description 11/17/2010 Documentation [facility] [address] [place] [address] Family Medicine, Physician [address] [place], [place] [phone] Social History Tobacco Use Types Packs/Day Years [...] on filedocumented in this encounter Care Teams Public Health Training Assistant Relationship Specialty Start Date End Date Sherlyn Pino MD [address] [place] [address] PCP - General 10/27/16 09/16/22 documented as of this encounter
--- OUTSIDE RECORDS SUMMARY | 2025-02-23 07:32 | XMS_ITS | Clinical Summary ---
Author Organization [facility] Address [address] [place] [address] Phone Care Team Providers Care Hull Outfit Supervisor Name Role Phone Unavailable Primary Care Provider [...]
--- OUTSIDE RECORDS SUMMARY | 2025-02-23 07:32 | XMS_ITS | Encounter Summary ---
Author Organization [facility] Address [address] [place] [address] Phone Care Team Providers Care Individual Small Group Instructor Name Role Phone Sherlyn Pino MD Primary Care Provider [phone] Encounter Details Date Type Department Care Team (Late st Contact Info) Description 11/06/2011 Documentation [facility] [place] Family Medicine [address] [place] [address] Family Medicine, Physician [address] [place], [place] [phone] Social History Tobacco Use Types Packs/Day Years [...] on filedocumented in this encounter Care Teams Individual Small Group Instructor Relationship Specialty Start Date End Date Sherlyn Pino MD [address] [place] [address] PCP - General 10/27/16 09/16/22 documented as of this encounter
--- OUTSIDE RECORDS SUMMARY | 2025-02-23 07:32 | XMS_ITS | Encounter Summary ---
Author Organization [facility] Address [address] [place] [address] Phone Care Team Providers Care Igniter Assembler Name Role Phone Sherlyn Pino MD Primary Care Provider [phone] Encounter Details Date Type Department Care Team (Late st Contact Info) Description 11/17/2010 Documentation [facility] [place] [address] [place] [address] Family Medicine, Physician [address] [place], [place] [phone] Social History Tobacco Use Types Packs/Day Years [...] on filedocumented in this encounter Care Teams Igniter Assembler Relationship Specialty Start Date End Date Sherlyn Pino MD [address] [place] [address] PCP - General 10/27/16 09/16/22 documented as of this encounter
--- OUTSIDE RECORDS SUMMARY | 2025-02-23 07:32 | XMS_ITS | Encounter Summary ---
Author Organization [facility] Address [address] [place] [address] Phone Care Team Providers Care Nursing Informatics Specialist Name Role Phone Sherlyn Pino MD Primary Care Provider Encounter Details Date Type Department Care Team (Late st Contact Info) Description 11/06/[address] [facility] [place] [address] [place] [address] Family Medicine, Physician [address] [place], [place] [phone] Social History Tobacco Use Types Packs/Day Years [...] on filedocumented in this encounter Care Teams Nursing Informatics Specialist Relationship Specialty Start Date End Date Sherlyn Pino MD [address] [place] [address] PCP - General 10/27/16 09/16/22 documented as of this encounter
--- OUTSIDE RECORDS SUMMARY | 2025-02-23 07:32 | XMS_ITS | Encounter Summary ---
Author Organization [facility] Address [address] [place] [address] Phone Care Team Providers Care Paleologist Name Role Phone Sherlyn Pino MD Primary Care Provider [phone] Encounter Details Date Type Department Care Team (Late st Contact Info) Description 11/06/2011 Documentation [facility] [place] Family Medicine [address] [place] [address] Family Medicine, Physician [address] [place], [place] [phone] Social History Tobacco Use Types Packs/Day Years [...] on filedocumented in this encounter Care Teams Paleologist Relationship Specialty Start Date End Date Sherlyn Pino MD [address] [place] [address] PCP - General 10/27/16 09/16/22 documented as of this encounter
--- OUTSIDE RECORDS SUMMARY | 2025-02-23 07:33 | XMS_ITS | Encounter Summary ---
Author Organization [facility] Address [address] [place] [address] Phone Care Team Providers Care Vp Clinical Name Role Phone Sherlyn Pino MD Primary Care Provider Encounter Details Date Type Department Care Team (Late st Contact Info) Description 11/02/2016 Conversion Encounter [facility] [place] [address] [place] [address] Social History Tobacco Use Types Packs/Day Years [...] on filedocumented in this encounter Care Teams Vp Clinical Relationship Specialty Start Date End Date Sherlyn iPno MD [address] [place] [address] PCP - General 10/27/16 09/16/22 documented as of this encounter
--- OUTSIDE RECORDS SUMMARY | 2025-02-23 07:33 | XMS_ITS | Encounter Summary ---
Author Organization [facility] Address [address] [place] [address] Phone Care Team Providers Care Rag Room Supervisor Name Role Phone Sherlyn Pino MD Primary Care Provider Encounter Details Date Type Department Care Team (Late st Contact Info) Description 02/19/2013 [place] [facility] [place] [address] [place] [address] Family Medicine, Physician [address] [place], [place] [phone] Social History Tobacco Use Types Packs/Day Years [...] on filedocumented in this encounter Care Teams Rag Room Supervisor Relationship Specialty Start Date End Date Sherlyn Pino MD [address] [place] [address] PCP - General 10/27/16 09/16/22 documented as of this encounter
--- OUTSIDE RECORDS SUMMARY | 2025-02-23 07:33 | XMS_ITS | Encounter Summary ---
Author Organization [facility] Address [address] [place] [address] Phone Care Team Providers Care Director Mobile Name Role Phone Sherlyn Pino MD Primary Care Provider Encounter Details Date Type Department Care Team (Late st Contact Info) Description 11/17/2010 Documentation [facility] [place] Family Medicine [address] [place] [address] Family Medicine, Physician [address] [place], [place] [phone] Social History Tobacco Use Types Packs/Day Years [...] on filedocumented in this encounter Care Teams Director Mobile Relationship Specialty Start Date End Date Sherlyn Pino MD [address] [place] [address] PCP - General 10/27/16 09/16/22 documented as of this encounter
--- OUTSIDE RECORDS SUMMARY | 2025-02-23 07:33 | XMS_ITS | Encounter Summary ---
Author Organization [facility] Address [address] [place] [address] Phone Care Team Providers Care Supervisor Type Photography Name Role Phone Sherlyn Pino MD Primary Care Provider Encounter Details Date Type Department Care Team (Late st Contact Info) Description 02/19/2013 Documentation [facility] [place] [address] [place] [address] Family Medicine, Physician [address] [place], [place] [phone] Social History Tobacco Use Types Packs/Day Years [...] on filedocumented in this encounter Care Teams Supervisor Type Photography Relationship Specialty Start Date End Date Sherlyn Pino MD [address] [place] [address] PCP - General 10/27/16 09/16/22 documented as of this encounter
--- OUTSIDE RECORDS SUMMARY | 2025-02-23 07:33 | XMS_ITS | Encounter Summary ---
Author Organization [facility] Address [address] [place] [address] Phone Care Team Providers Care Maintenance And Utilities Supervisor Name Role Phone Sherlyn Pino MD Primary Care Provider Encounter Details Date Type Department Care Team (Late st Contact Info) Description 02/20/2013 Documentation [facility] [place] [address] [place] [address] Family Medicine, Physician [address] [place], [place] [phone] Social History Tobacco Use Types Packs/Day Years [...] on filedocumented in this encounter Care Teams Maintenance And Utilities Supervisor Relationship Specialty Start Date End Date Sherlyn Pino MD [address] [place] [address] PCP - General 10/27/16 09/16/22 documented as of this encounter
--- OUTSIDE RECORDS SUMMARY | 2025-02-23 07:33 | XMS_ITS | Encounter Summary ---
Author Organization [facility] Address [address] [place] [address] Phone Care Team Providers Care Rate Clerk Name Role Phone Sherlyn Pino MD Primary Care Provider Encounter Details Date Type Department Care Team (Late st Contact Info) Description 02/20/2013 Documentation [facility] [place] Medicine [address] [place] [address] Family Medicine, Physician [address] [place], [place] [phone] Social History Tobacco Use Types Packs/Day Years [...] on filedocumented in this encounter Care Teams Rate Clerk Relationship Specialty Start Date End Date Sherlyn Pino MD [address] [place] [address] PCP - General 10/27/16 09/16/22 documented as of this encounter
--- OUTSIDE RECORDS SUMMARY | 2025-02-23 07:34 | XMS_ITS | Encounter Summary ---
Author Organization [facility] Address [address] [place] [address] Phone Care Team Providers Care Net Front End Developer Name Role Phone Sherlyn Pino MD Primary Care Provider Encounter Details Date Type Department Care Team (Late st Contact Info) Description 01/23/2012 Documentation [facility] [place] [address] [place] [address] Family Medicine, Physician [address] [place], [place] [phone] Social History Tobacco Use Types Packs/Day Years [...] on filedocumented in this encounter Care Teams Net Front End Developer Relationship Specialty Start Date End Date Sherlyn Pino MD [address] [place] [address] PCP - General 10/27/16 09/16/22 documented as of this encounter
== END 2025-02-23 07:30 | disposition home or self-care (01) ==
LOC: HO.CT 07:29
PROVIDERS: Visit Provider Internal Medicine
DX: S13.4XXA Sprain of ligaments of cervical spine, initial encounter (principal); R51.9 Headache, unspecified
CPT/HCPCS: 70450

== ENCOUNTER → 2025-02-23 07:30 | Outpatient (BNV) | payer OTHER, SELFPAY | PROVIDERS: Visit Provider Radiology Diagnostic Radiology | DX: S13.4XXA Sprain of ligaments of cervical spine, initial encounter (principal) | CPT/HCPCS: 70450 ==